=== PATIENT | female | born 1965 | race Caucasian/White ===

== ENCOUNTER 2017-08-30 13:58 | Inpatient (IN) | payer BC, OTHER ==
--- NOTE | 2017-08-30 14:41 | ED ---
General Adult HPI - General Chief complaint: Abdominal Pain Stated complaint: gallbladder Time Seen by Provider: 08/30/17 14:28 Source: patient, RN notes reviewed, old records reviewed Mode of arrival: ambulatory Limitations: no limitations - History of Present Illness Initial comments: 52-year-old female presents for evaluation of abdominal pain. Patient had been seen at outside hospital for right upper quadrant pain over the past one week. She did receive CAT scan and ultrasound. She was told she would likely need to have her gallbladder out. She was unable to wait for an outpatient referral and presented with worsening pain. She has had nausea, no significant vomiting. No fever but she has had chills. Pain is epigastric and right upper quadrant. Past medical history of hypertension, remote history of nephrectomy and total hysterectomy. - Related Data Home Medications Medication Instructions Recorded Confirmed Sucralfate 1 gm PO QID 03/24/14 08/30/17 lamoTRIgine [LaMICtal] 100 mg PO BID 09/09/14 08/30/17 Aspirin EC [Ecotrin Low Dose] 81 mg PO DAILY 08/30/17 08/30/17 Carvedilol [Coreg] 12.5 mg PO BID 08/30/17 08/30/17 Cephalexin [Keflex] 500 mg PO QID 08/30/17 08/30/17 Lisinopril [Zestril] 10 mg PO DAILY 08/30/17 08/30/17 Ondansetron [Zofran ODT] 8 mg PO QID PRN 08/30/17 08/30/17 Allergies Allergy/AdvReac Type Severity Reaction Status Date / Time sulfamethoxazole Allergy Severe Unknown Verified 08/30/17 14:30 [From Bactrim] rofecoxib [From Vioxx] Allergy Anaphylaxis Verified 08/30/17 14:30 trimethoprim [From Bactrim] Allergy Unknown Verified 08/30/17 14:30 NSAIDS (Non-Steroidal AdvReac Unknown Verified 08/30/17 14:30 Anti-Inflamma Review of Systems ROS Statement: Those systems with pertinent positive or pertinent negative responses have been documented in the HPI. ROS Other: All systems not noted in ROS Statement are negative. Past Medical History Past Medical History: Hyperlipidemia, Hypertension, Mitral Valve Prolapse (MVP) , Renal Disease, Seizure Disorder Additional Past Medical History / Comment(s): PAD History of Any Multi-Drug Resistant Organisms: None Reported Past Surgical History: Section, Hysterectomy, Tubal Ligation Additional Past Surgical History / Comment(s): kidney removed Past Anesthesia/Blood Transfusion Reactions: No Reported Reaction Past Psychological History: Anxiety, Depression Smoking Status: Current every day smoker Past Alcohol Use History: None Reported Past Drug Use History: None Reported General Exam Limitations: no limitations General appearance: alert, in no apparent distress Head exam: Present: atraumatic, normocephalic Eye exam: Present: normal appearance, PERRL ENT exam: Present: normal exam Neck exam: Present: normal inspection. Absent: tenderness, meningismus Respiratory exam: Present: normal lung sounds bilaterally. Absent: respiratory distress Cardiovascular Exam: Present: regular rate, normal rhythm GI/Abdominal exam: Present: soft, tenderness (Right upper quadrant tenderness). Absent: distended, guarding, rebound Extremities exam: Present: normal inspection, normal capillary refill. Absent: pedal edema Back exam: Present: normal inspection, full ROM Neurological exam: Present: alert, oriented X3 Psychiatric exam: Present: normal affect, normal mood Skin exam: Present: warm, dry, intact. Absent: cyanosis, diaphoretic Course Vital Signs 08/30/17 08/30/17 14:14 15:43 Temperature 97.5 F L Pulse Rate 71 78 Respiratory 18 18 Rate Blood Pressure 91/55 93/48 O2 Sat by Pulse 98 98 Oximetry Medical Decision Making - Medical Decision Making 52-year-old female presenting for abdominal pain. Report is reviewed from outside hospital, does show CT with mild dilatation of the CBD at 9 mm. There is thickening of the gallbladder wall with pericholecystic fluid consistent with acute cholecystitis. This is also visualized on ultrasound report. Laboratory studies reveal normal white blood cell count, normal bilirubin, she does have an elevated creatinine consistent with dehydration and acute renal failure. Case is discussed with Dr. Najera, he will evaluate the patient for likely cholecystectomy. Patient will be admitted to internal medicine, she may require a GI consultation given the dilated common bile duct. Diagnosis: Acute cholecystitis, dehydration, acute renal failure. - Lab Data Result diagrams: 08/30/17 14:58 08/30/17 14:58 Lab Results 08/30/17 08/30/17 08/30/17 Range/Units 14:50 14:58 14:58 WBC 7.8 (3.8-10.6) k/uL RBC 4.03 (3.80-5.40) m/uL Hgb 13.3 (11.4-16.0) gm/dL Hct 40.7 (34.0-46.0) % MCV 100.9 H (80.0-100.0) fL MCH 33.0 (25.0-35.0) pg MCHC 32.7 (31.0-37.0) g/dL RDW 14.2 (11.5-15.5) % Plt Count 296 (150-450) k/uL Neutrophils % 71 % Lymphocytes % 16 % Monocytes % 8 % Eosinophils % 2 % Basophils % 0 % Neutrophils # 5.5 (1.3-7.7) k/uL Lymphocytes # 1.2 (1.0-4.8) k/uL Monocytes # 0.7 (0-1.0) k/uL Eosinophils # 0.2 (0-0.7) k/uL Basophils # 0.0 (0-0.2) k/uL Macrocytosis Slight Sodium 138 (137-145) mmol/L Potassium 5.0 (3.5-5.1) mmol/L Chloride 104 (98-107) mmol/L Carbon Dioxide 19 L (22-30) mmol/L Anion Gap 15 mmol/L BUN 42 H (7-17) mg/dL Creatinine 2.88 H (0.52-1.04) mg/dL Est GFR (CKD-EPI)AfAm 21 (>60 ml/min/1.73 sqM) Est GFR (CKD-EPI)NonAf 18 (>60 ml/min/1.73 sqM) Glucose 54 L (74-99) mg/dL Calcium 9.5 (8.4-10.2) mg/dL Total Bilirubin 0.4 (0.2-1.3) mg/dL AST 81 H (14-36) U/L ALT 47 (9-52) U/L Alkaline Phosphatase 125 (38-126) U/L Total Protein 7.3 (6.3-8.2) g/dL Albumin 4.3 (3.5-5.0) g/dL Amylase 176 H (30-110) U/L Lipase 296 (23-300) U/L Urine Color Yellow Urine Appearance Cloudy H (Clear) Urine pH 5.5 (5.0-8.0) Ur Specific [place] 1.017 (1.001-1.035) Urine Protein 1+ H (Negative) Urine Glucose (UA) Negative (Negative) Urine Ketones Trace H (Negative) Urine Blood Trace H (Negative) Urine Nitrite Negative (Negative) Urine Bilirubin Negative (Negative) Urine Urobilinogen 3.0 (<2.0) mg/dL Ur Leukocyte Esterase Moderate H (Negative) Urine RBC 2 (0-5) /hpf Urine WBC 5 (0-5) /hpf Ur Squamous Epith Cells 3 (0-4) /hpf Urine Bacteria Few H (None) /hpf Hyaline Casts 12 H (0-2) /lpf Urine Mucus Occasional H (None) /hpf Disposition Clinical Impression: Acute cholecystitis, Dehydration, Acute renal failure Disposition: ADMITTED IP TO THIS HOSP Condition: Stable Is patient prescribed a controlled substance at d/c from ED?: No Referrals: Ike Fitzpatrick MD [Primary Care Provider] - 1-2 days Decision to Admit Reason: Admit from EC Decision Date: 08/30/17 Decision Time: 15:53
[2017-08-30 15:24] LABS: Appearance,Urine Cloudy (Clear); Bacteria,Urine Few /hpf; Bilirubin,Urine Negative (Negative); Blood,Urine Trace (Negative); Color,Urine Yellow; Glucose,Urine (UA) Negative (Negative); Hyaline Casts,Urine 12 /lpf (0-2); Ketones,Urine Trace (Negative); Leukocyte Esterase,Urine Moderate (Negative); Mucus,Urine Occasional /hpf; Nitrite,Urine Negative (Negative); PH, Urine 5.5 (5.0-8.0); Protein,Urine 1+ (Negative); RBC,Urine 2 /hpf (0-5); Specific Gravity,Urine 1.017 (1.001-1.035); Squamous Epithelial Cell,Urine 3 /hpf (0-4); WBC,Urine 5 /hpf (0-5)
[2017-08-30] MEDS ORDERED: SODIUM CHLORIDE 0.9% 500 ML IV ONE (15:25)
[2017-08-30 15:31] LABS: Basophils % (A) 0 %; Eosinophils # (A) 0.2 k/uL (0-0.7); Eosinophils % (A) 2 %; HCT 40.7 % (34.0-46.0); HGB 13.3 gm/dL (11.4-16.0); Lymphocytes # (A) 1.2 k/uL (1.0-4.8); Lymphocytes % (A) 16 %; MCHC 32.7 g/dL (31.0-37.0); MCV 100.9 fL (80.0-100.0); Macrocytosis Slight; Mean Platelet Volume 7.2; Monocytes # (A) 0.7 k/uL (0-1.0); Monocytes % (A) 8 %; Neutrophils # (A) 5.5 k/uL (1.3-7.7); Neutrophils % (A) 71 %; Platelet Count 296 k/uL (150-450); RBC 4.03 m/uL (3.80-5.40); RDW 14.2 % (11.5-15.5); WBC 7.8 k/uL (3.8-10.6)
[2017-08-30 15:32] LABS: Albumin 4.3 g/dL (3.5-5.0); Calcium 9.5 mg/dL (8.4-10.2); Total Bilirubin 0.4 mg/dL (0.2-1.3); Total Protein 7.3 g/dL (6.3-8.2)
[2017-08-30] MEDS ORDERED: SODIUM CHLORIDE 0.9% 1,000 ML IV ONE (15:41)
[2017-08-30] MEDS ORDERED: DEXTROSE 5%-0.45% NACL 1,000 ML IV ONE (15:42)
[2017-08-30] MEDS ORDERED: SODIUM CHLORIDE 0.9% 1,000 ML IV SCH (15:45)
[2017-08-30] MEDS ORDERED: NALOXONE 0.4 MG/ML 1 ML VIAL IV PRN (15:48)
[2017-08-30] MEDS ORDERED: HYDROmorphone 0.5 MG/0.5 ML SYRINGE IVP STA (15:48)
[2017-08-30 16:40] LABS: INR 1.1 (<1.2); Prothrombin Time 10.4 sec (9.0-12.0)
[2017-08-30 16:44] LABS: Partial Thromboplastin Time 21.7 sec (22.0-30.0)
[2017-08-30] MEDS: PIPERACILLIN-TAZOBACTAM 3.375 GM in DEXTROSE/WATER 1 50ML.BAG IVPB SCH (19:48)
[2017-08-30] MEDS: HYDROmorphone 0.5 MG/0.5 ML SYRINGE IVP PRN (20:11)
[2017-08-30] MEDS: NICOTINE 14MG/24HR PATCH TRANSDERM SCH (20:46)
[2017-08-30] MEDS: lamoTRIgine 100 MG TAB PO SCH (20:46)
[2017-08-30] MEDS: SUCRALFATE 1 GM TAB PO SCH (21:54)
[2017-08-30] MEDS: SODIUM CHLORIDE 0.9% 1,000 ML IV SCH (21:55)
--- NOTE | 2017-08-30 21:57 | P.HPIM ---
History of Present Illness H&P Date: 08/30/17 Chief Complaint: Abdominal pain Patient is a 52-year-old female with a known history of hypertension, hyperlipidemia and mitral valve prolapse as well as solitary right kidney presented to ER with complaints of worsening right upper quadrant abdominal pain. Patient was seen at outside hospital about one week ago with right upper quadrant pain where she had CT of abdomen pelvis as well as WAS DONE. PATIENT WAS FOUND HAVE ACUTE CHOLECYSTITIS AND WAS REFERRED TO GENERAL SURGERY. PATIENT WAS STARTED ON ANTIBIOTICS UNTIL FOLLOW-UP WITH SURGERY CLINIC. PATIENT TODAY SAYS THAT HER PAIN GOT WORSE SIGNIFICANTLY AND CAME TO THE HOSPITAL FOR EVALUATION. She has had nausea, no significant vomiting. No fever but she has had chills. Pain is epigastric and right upper quadrant. Past medical history of hypertension, remote history of nephrectomy and total hysterectomy. Patient does have history of left kidney removal due to large stone. Patient will be started on IV antibiotics and general surgery was consulted for possible cholecystectomy. Review of Systems Constitutional: Patient denies any fever or chills . No generalized weakness or weight loss. Abdomen: Right upper quadrant pain. No nausea no vomiting. No diarrhea. Cardiovascular: Patient denies any chest pain or short of breath no palpitations. Respiratory: patient denied any cough is from production. No shortness of breath Neurologic: Patient denied any numbness or tingling headache. Musculoskeletal: Patient denies any complaints of joint swelling or deformity. Skin: Negative Psychiatric: Negative Endocrine: No heat or cold intolerance. No recent weight gain. Genitourinary: No dysuria or hematuria. All other 14 point ROS negative except the above Past Medical History Past Medical History: Hyperlipidemia, Hypertension, Mitral Valve Prolapse (MVP) , Renal Disease, Seizure Disorder Additional Past Medical History / Comment(s): PAD ( 2 blocked arteries in the base of her brain-neurologist reports that they are very small and she will likely have a CVA due to them) , Last seizure was over 3 years ago History of Any Multi-Drug Resistant Organisms: None Reported Past Surgical History: Section, Hysterectomy, Tubal Ligation Additional Past Surgical History / Comment(s): L. kidney removed Past Anesthesia/Blood Transfusion Reactions: No Reported Reaction Past Psychological History: Anxiety, Depression Smoking Status: Current every day smoker Past Alcohol Use History: None Reported Past Drug Use History: None Reported - Past Family History Father Family Medical History: Unable to Obtain Additional Family Medical History / Comment(s): Pt. Was adopted Medications and Allergies Home Medications Medication Instructions Recorded Confirmed Type Sucralfate 1 gm PO QID 03/24/14 08/30/17 History lamoTRIgine [LaMICtal] 100 mg PO BID 09/09/14 08/30/17 History Aspirin EC [Ecotrin Low Dose] 81 mg PO DAILY 08/30/17 08/30/17 History Carvedilol [Coreg] 12.5 mg PO BID 08/30/17 08/30/17 History Cephalexin [Keflex] 500 mg PO QID 08/30/17 08/30/17 History Lisinopril [Zestril] 10 mg PO DAILY 08/30/17 08/30/17 History Ondansetron [Zofran ODT] 8 mg PO QID PRN 08/30/17 08/30/17 History Allergies Allergy/AdvReac Type Severity Reaction Status Date / Time sulfamethoxazole Allergy Severe Unknown Verified 08/30/17 14:30 [From Bactrim] rofecoxib [From Vioxx] Allergy Anaphylaxis Verified 08/30/17 14:30 trimethoprim [From Bactrim] Allergy Unknown Verified 08/30/17 14:30 NSAIDS (Non-Steroidal AdvReac Unknown Verified 08/30/17 14:30 Anti-Inflamma Physical Exam Vitals: Vital Signs Temp Pulse Pulse Resp BP BP Pulse Ox 08/30/17 19:10 98.7 F 57 L 18 90/56 97 08/30/17 18:07 98.7 F 75 16 113/74 97 08/30/17 16:26 97.6 F 69 18 96/54 98 08/30/17 15:43 78 18 93/48 98 08/30/17 14:14 97.5 F L 71 18 91/55 98 Intake and Output 08/30/17 08/30/17 08/30/17 06:59 14:59 22:59 Other: Weight 68.039 kg PHYSICAL EXAMINATION: Patient is lying in the bed comfortably, no acute distress, awake alert and oriented.. HEENT: Normocephalic. Neck is supple. Pupils reactive. Nostrils clear. Oral cavity is moist. Ears reveal no drainage. Neck reveals no JVD, carotid bruits, or thyromegaly. CHEST EXAMINATION: Trachea is central. Symmetrical expansion. Lung cuevas clear to auscultation and percussion. CARDIAC: Normal S1, S2 with no gallops. No murmurs ABDOMEN: Soft. Right upper quadrant tenderness with deep sedation and Chase's sign positive. Bowel sounds normal. No organomegaly. No abdominal bruits. Extremities: reveal no edema. No clubbing or cyanosis Neurologically awake, alert, oriented x3 with well-coordinated movements. No focal deficits noted Skin: No rash or skin lesions. Psychiatric: Cooperative. Nonsuicidal Musculoskeletal: No joint swelling or deformity. Normal range of motion. Results CBC & Chem 7: 08/30/17 14:58 08/30/17 14:58 Labs: Abnormal Lab Results - Last 24 Hours (Table) 08/30/17 08/30/17 08/30/17 Range/Units 14:50 14:58 14:58 MCV 100.9 H (80.0-100.0) fL APTT (22.0-30.0) sec Carbon Dioxide 19 L (22-30) mmol/L BUN 42 H (7-17) mg/dL Creatinine 2.88 H (0.52-1.04) mg/dL Glucose 54 L (74-99) mg/dL AST 81 H (14-36) U/L Amylase 176 H (30-110) U/L Urine Appearance Cloudy H (Clear) Urine Protein 1+ H (Negative) Urine Ketones Trace H (Negative) Urine Blood Trace H (Negative) Ur Leukocyte Esterase Moderate H (Negative) Urine Bacteria Few H (None) /hpf Hyaline Casts 12 H (0-2) /lpf Urine Mucus Occasional H (None) /hpf 08/30/17 Range/Units 16:00 MCV (80.0-100.0) fL APTT 21.7 L (22.0-30.0) sec Carbon Dioxide (22-30) mmol/L BUN (7-17) mg/dL Creatinine (0.52-1.04) mg/dL Glucose (74-99) mg/dL AST (14-36) U/L Amylase (30-110) U/L Urine Appearance (Clear) Urine Protein (Negative) Urine Ketones (Negative) Urine Blood (Negative) Ur Leukocyte Esterase (Negative) Urine Bacteria (None) /hpf Hyaline Casts (0-2) /lpf Urine Mucus (None) /hpf Thrombosis Risk Factor Assmnt - DVT/VTE Prophylaxis DVT/VTE Prophylaxis: Pharmacologic Prophylaxis ordered - Choose All That Apply Any of the Below Risk Factors Present?: Yes Each Factor Represents 1 point: Age 41-60 years Thrombosis Risk Factor Assessment Total Risk Factor Score: 1 Thrombosis Risk Factor Assessment Level: Low Risk Assessment and Plan Assessment: Right upper quadrant pain likely due to acute cholecystitis Acute on chronic kidney disease stage III with creatinine level 2.88 Mild metabolic acidosis anion gap Solitary right kidney with history of left kidney removal due to large stone Hypertension Hyperlipidemia Mitral valve prolapse History of seizure disorder Anxiety and depression Currently everyday smoker D prophylaxis Plan: Patient continued on IV hydration and antibiotics in the form of Zosyn. Gen. surgery was consulted for further evaluation. We will continue the home medications and follow closely. Discussed with her at bedside and with the patient in detail. Time with Patient: Greater than 30
[2017-08-31] MEDS: HYDROmorphone 0.5 MG/0.5 ML SYRINGE IVP PRN ×9 (00:06→22:10)
[2017-08-31] MEDS: PIPERACILLIN-TAZOBACTAM 3.375 GM in DEXTROSE/WATER 1 50ML.BAG IVPB SCH ×3 (02:26→17:00)
[2017-08-31] MEDS: SODIUM CHLORIDE 0.9% 1,000 ML IV SCH (03:18)
[2017-08-31 08:20] LABS: Basophils % (A) 0 %; Eosinophils # (A) 0.2 k/uL (0-0.7); Eosinophils % (A) 3 %; HGB 12.8 gm/dL (11.4-16.0); Lymphocytes # (A) 1.6 k/uL (1.0-4.8); Lymphocytes % (A) 26 %; MCH 32.9 pg (25.0-35.0); MCHC 32.8 g/dL (31.0-37.0); MCV 100.3 fL (80.0-100.0); Macrocytosis Slight; Mean Platelet Volume 8.1; Monocytes # (A) 0.7 k/uL (0-1.0); Monocytes % (A) 10 %; Neutrophils # (A) 3.5 k/uL (1.3-7.7); Neutrophils % (A) 56 %; Platelet Count 251 k/uL (150-450); RBC 3.89 m/uL (3.80-5.40); RDW 14.2 % (11.5-15.5); WBC 6.3 k/uL (3.8-10.6)
[2017-08-31] MEDS: SUCRALFATE 1 GM TAB PO SCH ×4 (08:28→22:10)
[2017-08-31] MEDS: NICOTINE 14MG/24HR PATCH TRANSDERM SCH (08:28)
[2017-08-31] MEDS: lamoTRIgine 100 MG TAB PO SCH ×2 (08:28→20:18)
[2017-08-31] MEDS: ONDANSETRON 4 MG/2 ML VIAL IVP PRN (08:29)
[2017-08-31 10:04] LABS: Albumin 3.4 g/dL (3.5-5.0); Bilirubin, Delta 0.4 mg/dL (0.0-0.2); Calcium 8.9 mg/dL (8.4-10.2); Potassium 4.9 mmol/L (3.5-5.1); Total Bilirubin 0.4 mg/dL (0.2-1.3); Total Protein 5.9 g/dL (6.3-8.2)
[2017-08-31] MEDS: DEXTROSE 5%-0.9% NACL 1,000 ML IV SCH ×2 (10:51→20:48)
--- NOTE | 2017-08-31 12:52 | P.GSCN ---
History of Present Illness Consult date: 08/31/17 History of present illness: 52-year-old female presents to the emergency department with complaints of right upper quadrant pain. [place] is from [place] of town and had workup done at an outside facility due to her right upper quadrant pain. She was found to have acute cholecystitis and was informed to follow with a surgeon. She was unable to tolerate the pain and was transferred to this hospital. She currently has some right upper quadrant pain. Complains of some nausea but denies any emesis episodes. She denies any change in bowel function. She states her only surgical history is a left-sided nephrectomy secondary to severe nephrolithiasis. She is in acute renal failure on admission. She denies any fevers, chills, chest pain or shortness of breath at this time. Review of Systems All systems: negative Past Medical History Past Medical History: Hyperlipidemia, Hypertension, Mitral Valve Prolapse (MVP) , Renal Disease, Seizure Disorder Additional Past Medical History / Comment(s): PAD ( 2 blocked arteries in the base of her brain-neurologist reports that they are very small and she will likely have a CVA due to them) , Last seizure was over 3 years ago History of Any Multi-Drug Resistant Organisms: None Reported Past Surgical History: Section, Hysterectomy, Tubal Ligation Additional Past Surgical History / Comment(s): L. kidney removed Past Anesthesia/Blood Transfusion Reactions: No Reported Reaction Past Psychological History: Anxiety, Depression Smoking Status: Current every day smoker Past Alcohol Use History: None Reported Past Drug Use History: None Reported - Past Family History Father Family Medical History: Unable to Obtain Additional Family Medical History / Comment(s): Pt. Was adopted Medications and Allergies Home Medications Medication Instructions Recorded Confirmed Type Sucralfate 1 gm PO QID 03/24/14 08/30/17 History lamoTRIgine [LaMICtal] 100 mg PO BID 09/09/14 08/30/17 History Aspirin EC [Ecotrin Low Dose] 81 mg PO DAILY 08/30/17 08/30/17 History Carvedilol [Coreg] 12.5 mg PO BID 08/30/17 08/30/17 History Cephalexin [Keflex] 500 mg PO QID 08/30/17 08/30/17 History Lisinopril [Zestril] 10 mg PO DAILY 06/21/18 06/21/18 History Ondansetron [Zofran ODT] 8 mg PO QID PRN 08/30/17 08/30/17 History Allergies Allergy/AdvReac Type Severity Reaction Status Date / Time sulfamethoxazole Allergy Severe Unknown Verified 08/30/17 14:30 [From Bactrim] rofecoxib [From Vioxx] Allergy Anaphylaxis Verified 08/30/17 14:30 trimethoprim [From Bactrim] Allergy Unknown Verified 08/30/17 14:30 NSAIDS (Non-Steroidal AdvReac Unknown Verified 08/30/17 14:30 Anti-Inflamma Surgical - Exam Osteopathic Statement: *. No significant issues noted on an osteopathic structural exam other than those noted in the History and Physical/Consult. Vital Signs Temp Pulse Resp BP Pulse Ox 97.5 F L 71 18 91/55 98 08/30/17 14:14 08/30/17 14:14 08/30/17 14:14 08/30/17 14:14 08/30/17 14:14 - General well nourished, no distress - Neck trachea midline - Respiratory No difficulty with respiration - Integumentary no rash, no growths - Neurologic normal sensation - Psychiatric oriented to time, oriented to person, oriented to place, speech is normal Results - Labs 08/31/17 07:31 08/31/17 09:36 Abnormal Lab Results - Last 24 Hours (Table) 08/30/17 08/30/17 08/30/17 Range/Units 14:50 14:58 14:58 MCV 100.9 H (80.0-100.0) fL APTT (22.0-30.0) sec Chloride (98-107) mmol/L Carbon Dioxide 19 L (22-30) mmol/L BUN 42 H (7-17) mg/dL Creatinine 2.88 H (0.52-1.04) mg/dL Glucose 54 L (74-99) mg/dL Delta Bilirubin (0.0-0.2) mg/dL AST 81 H (14-36) U/L Alkaline Phosphatase (38-126) U/L Total Protein (6.3-8.2) g/dL Albumin (3.5-5.0) g/dL Amylase 176 H (30-110) U/L Urine Appearance Cloudy H (Clear) Urine Protein 1+ H (Negative) Urine Ketones Trace H (Negative) Urine Blood Trace H (Negative) Ur Leukocyte Esterase Moderate H (Negative) Urine Bacteria Few H (None) /hpf Hyaline Casts 12 H (0-2) /lpf Urine Mucus Occasional H (None) /hpf 08/30/17 08/31/17 08/31/17 Range/Units 16:00 07:31 09:36 MCV 100.3 H (80.0-100.0) fL APTT 21.7 L (22.0-30.0) sec Chloride 113 H (98-107) mmol/L Carbon Dioxide 19 L (22-30) mmol/L BUN 24 H (7-17) mg/dL Creatinine 1.30 H (0.52-1.04) mg/dL Glucose 52 L (74-99) mg/dL Delta Bilirubin 0.4 H (0.0-0.2) mg/dL AST 83 H (14-36) U/L Alkaline Phosphatase 132 H (38-126) U/L Total Protein 5.9 L (6.3-8.2) g/dL Albumin 3.4 L (3.5-5.0) g/dL Amylase (30-110) U/L Urine Appearance (Clear) Urine Protein (Negative) Urine Ketones (Negative) Urine Blood (Negative) Ur Leukocyte Esterase (Negative) Urine Bacteria (None) /hpf Hyaline Casts (0-2) /lpf Urine Mucus (None) /hpf Diabetes panel 08/30/17 08/31/17 Range/Units 14:58 09:36 Sodium 138 141 (137-145) mmol/L Potassium 5.0 4.9 (3.5-5.1) mmol/L Chloride 104 113 H (98-107) mmol/L Carbon Dioxide 19 L 19 L (22-30) mmol/L BUN 42 H 24 H (7-17) mg/dL Creatinine 2.88 H 1.30 H (0.52-1.04) mg/dL Glucose 54 L 52 L (74-99) mg/dL Calcium 9.5 8.9 (8.4-10.2) mg/dL AST 81 H 83 H (14-36) U/L ALT 47 49 (9-52) U/L Alkaline Phosphatase 125 132 H (38-126) U/L Total Protein 7.3 5.9 L (6.3-8.2) g/dL Albumin 4.3 3.4 L (3.5-5.0) g/dL Calcium panel 08/30/17 08/31/17 Range/Units 14:58 09:36 Calcium 9.5 8.9 (8.4-10.2) mg/dL Albumin 4.3 3.4 L (3.5-5.0) g/dL Pituitary panel 08/30/17 08/31/17 Range/Units 14:58 09:36 Sodium 138 141 (137-145) mmol/L Potassium 5.0 4.9 (3.5-5.1) mmol/L Chloride 104 113 H (98-107) mmol/L Carbon Dioxide 19 L 19 L (22-30) mmol/L BUN 42 H 24 H (7-17) mg/dL Creatinine 2.88 H 1.30 H (0.52-1.04) mg/dL Glucose 54 L 52 L (74-99) mg/dL Calcium 9.5 8.9 (8.4-10.2) mg/dL Adrenal panel 08/30/17 08/31/17 Range/Units 14:58 09:36 Sodium 138 141 (137-145) mmol/L Potassium 5.0 4.9 (3.5-5.1) mmol/L Chloride 104 113 H (98-107) mmol/L Carbon Dioxide 19 L 19 L (22-30) mmol/L BUN 42 H 24 H (7-17) mg/dL Creatinine 2.88 H 1.30 H (0.52-1.04) mg/dL Glucose 54 L 52 L (74-99) mg/dL Calcium 9.5 8.9 (8.4-10.2) mg/dL Total Bilirubin 0.4 0.4 (0.2-1.3) mg/dL AST 81 H 83 H (14-36) U/L ALT 47 49 (9-52) U/L Alkaline Phosphatase 125 132 H (38-126) U/L Total Protein 7.3 5.9 L (6.3-8.2) g/dL Albumin 4.3 3.4 L (3.5-5.0) g/dL Assessment and Plan (1) Acute cholecystitis Narrative/Plan: 52-year-old female with acute cholecystitis - Patient is also in acute renal failure, due to having history of nephrectomy, will address acute renal failure with gentle hydration. Once creatinine levels have responded and patient has resolving renal failure, we'll plan for cholecystectomy. This will likely be performed tomorrow. She seems to already be progressing with her acute renal failure with the hydration she has received. - Clear liquid diet today, nothing by mouth after midnight - Continue antibiotics Thank you for this consultation. I look forward in providing in this patient's care. Current Visit: Yes Status: Acute Code(s): K81.0 - ACUTE CHOLECYSTITIS SNOMED Code(s): 30609490 (2) Acute renal failure Current Visit: Yes Status: Acute Code(s): N17.9 - ACUTE KIDNEY FAILURE, UNSPECIFIED SNOMED Code(s): 98330226
[2017-08-31] MEDS: HYDROcodone/APAP 5-325MG 1 EACH TAB PO PRN (16:58)
--- NOTE | 2017-08-31 21:36 | P.PN ---
Subjective Progress Note Date: 08/31/17 Principal diagnosis: Acute cholecystitis Patient is a 52-year-old female with a known history of hypertension, hyperlipidemia and mitral valve prolapse as well as solitary right kidney presented to ER with complaints of worsening right upper quadrant abdominal pain. Patient was seen at outside hospital about one week ago with right upper quadrant pain where she had CT of abdomen pelvis as well as WAS DONE. PATIENT WAS FOUND HAVE ACUTE CHOLECYSTITIS AND WAS REFERRED TO GENERAL SURGERY. PATIENT WAS STARTED ON ANTIBIOTICS UNTIL FOLLOW-UP WITH SURGERY CLINIC. PATIENT TODAY SAYS THAT HER PAIN GOT WORSE SIGNIFICANTLY AND CAME TO THE HOSPITAL FOR EVALUATION. She has had nausea, no significant vomiting. No fever but she has had chills. Pain is epigastric and right upper quadrant. Past medical history of hypertension, remote history of nephrectomy and total hysterectomy. Patient does have history of left kidney removal due to large stone. Patient wass started on IV antibiotics and general surgery was consulted for possible cholecystectomy. 08/31/2017 Patient does have right upper quadrant abdominal pain radiating to the back. Otherwise patient is controlled with pain medications. They'll function improved with creatinine level decreased from 2.88-1.3. Patient was seen by general surgery and is planning for cholecystectomy possibly thereafter tomorrow. No fever no chills. No chest pain or shortness of breath. Tolerating liquid diet. All other review of systems negative except the above Active Medications Hydrocodone Bitart/Acetaminophen ([place] 5-325) 1 each PO Q6HR PRN PRN Reason: MODERATE Pain Last Admin: 08/31/17 16:58 Dose: 1 each Hydromorphone HCl (Dilaudid) 0.5 mg IVP Q3HR PRN PRN Reason: SEVERE Pain Last Admin: 08/31/17 19:11 Dose: 0.5 mg Piperacillin/Tazobactam/ (Dextrose 3.375 gm/ IV Solution) 50 mls @ 12.5 mls/hr IVPB Q8H [facility] Last Admin: 08/31/17 17:00 Dose: 12.5 mls/hr Dextrose/Sodium Chloride (Dextrose 5%-Ns Iv Soln) 1,000 mls @ 100 mls/hr IV .Q10H [facility] Last Admin: 08/31/17 20:48 Dose: 100 mls/hr Lamotrigine (Lamictal) 100 mg PO BID [facility] Last Admin: 08/31/17 20:18 Dose: 100 mg Naloxone HCl (Narcan) 0.2 mg IV Q2M PRN PRN Reason: Opioid Reversal Nicotine (Habitrol 14mg/24hr Patch) 1 patch TRANSDERM DAILY [facility] Last Admin: 08/31/17 08:28 Dose: 1 patch Ondansetron HCl (Zofran) 4 mg IVP Q8HR PRN PRN Reason: Nausea And Vomiting Last Admin: 08/31/17 08:29 Dose: 4 mg Sucralfate (Carafate) 1 gm PO QID [facility] Last Admin: 08/31/17 17:00 Dose: 1 gm Objective - Vital Signs Vital signs: Vital Signs Temp 98 F 08/31/17 19:46 Pulse 76 08/31/17 19:46 Resp 16 08/31/17 19:46 BP 100/68 08/31/17 19:46 Pulse Ox 96 08/31/17 19:46 Intake & Output 08/31/17 08/31/17 09/01/17 06:59 18:59 06:59 Intake Total 1250 800 600 Balance 1250 800 600 Intake: Intake, IV Titration 1250 800 Amount Dextrose 5%-0.9% NaCl 1, 800 000 ml @ 100 mls/hr IV . Q10H [facility] Rx#:[id number] Sodium Chloride 0.9% 1, 1250 000 ml @ 125 mls/hr IV . Q8H [facility] Rx#:[id number] Oral 600 Other: # Voids 3 3 - Exam PHYSICAL EXAMINATION: Patient is lying in the bed comfortably, no acute distress, awake alert and oriented.. HEENT: Normocephalic. Neck is supple. Pupils reactive. Nostrils clear. Oral cavity is moist. Ears reveal no drainage. Neck reveals no JVD, carotid bruits, or thyromegaly. CHEST EXAMINATION: Trachea is central. Symmetrical expansion. Lung cuevas clear to auscultation and percussion. CARDIAC: Normal S1, S2 with no gallops. No murmurs ABDOMEN: Soft. Mild Right upper quadrant tenderness. Bowel sounds normal. No organomegaly. No abdominal bruits. Extremities: reveal no edema. No clubbing or cyanosis Neurologically awake, alert, oriented x3 with well-coordinated movements. No focal deficits noted Skin: No rash or skin lesions. Psychiatric: Coperative. Nonsuicidal Musculoskeletal: No joint swelling or deformity. Normal range of motion. - Labs CBC & Chem 7: 08/31/17 07:31 08/31/17 09:36 Labs: Abnormal Lab Results - Last 24 Hours (Table) 08/31/17 08/31/17 Range/Units 07:31 09:36 MCV 100.3 H (80.0-100.0) fL Chloride 113 H (98-107) mmol/L Carbon Dioxide 19 L (22-30) mmol/L BUN 24 H (7-17) mg/dL Creatinine 1.30 H (0.52-1.04) mg/dL Glucose 52 L (74-99) mg/dL Delta Bilirubin 0.4 H (0.0-0.2) mg/dL AST 83 H (14-36) U/L Alkaline Phosphatase 132 H (38-126) U/L Total Protein 5.9 L (6.3-8.2) g/dL Albumin 3.4 L (3.5-5.0) g/dL Microbiology - Last 24 Hours (Table) 08/30/17 14:58 Blood Culture - Preliminary Blood No Growth after 24 hours Assessment and Plan Assessment: Right upper quadrant pain likely due to acute cholecystitis Acute on chronic kidney disease stage III with creatinine level 2.88. Improving. Creatinine 1.3 Mild metabolic acidosis anion gap Solitary right kidney with history of left kidney removal due to large stone Hypertension Hyperlipidemia Mitral valve prolapse History of seizure disorder Anxiety and depression Currently everyday smoker D prophylaxis Plan: Patient continued on IV hydration and antibiotics in the form of Zosyn. Gen. surgery is planning for cholecystectomy.. We will continue the home medications and follow closely. Further recommendations based on the clinical course. Time with Patient: Greater than 30
[2017-09-01] MEDS: HYDROcodone/APAP 5-325MG 1 EACH TAB PO PRN ×4 (00:32→17:39)
[2017-09-01] MEDS: PIPERACILLIN-TAZOBACTAM 3.375 GM in DEXTROSE/WATER 1 50ML.BAG IVPB SCH ×3 (01:45→22:52)
[2017-09-01] MEDS: HYDROmorphone 0.5 MG/0.5 ML SYRINGE IVP PRN ×6 (03:25→22:10)
--- NOTE | 2017-09-01 08:28 | P.PN ---
Subjective Progress Note Date: 09/01/17 Patient seen and examined at bedside. States right upper quadrant pain is still present. Tolerating clear liquid diet. Denies nausea or emesis. Objective - Vital Signs Vital signs: Vital Signs Temp 98.1 F 09/01/17 00:30 Pulse 62 09/01/17 00:30 Resp 16 09/01/17 00:30 BP 102/61 09/01/17 00:30 Pulse Ox 98 09/01/17 00:30 Intake & Output 08/31/17 09/01/17 09/01/17 18:59 06:59 18:59 Intake Total 800 4525 Balance 800 4525 Intake: Intake, IV Titration 800 3925 Amount Dextrose 5%-0.9% NaCl 1, 800 1700 000 ml @ 100 mls/hr IV . Q10H [facility] Rx#:[id number] Piperacillin-Tazobactam 3 100 .375 gm In Dextrose/Water 1 50ml.bag @ 12.5 mls/hr IVPB Q8H [facility] Rx#: [id number] Sodium Chloride 0.9% 1, 2125 000 ml @ 125 mls/hr IV . Q8H [facility] Rx#:[id number] Oral 600 Other: Voiding Method Toilet # Voids 3 3 - Constitutional General appearance: Present: cooperative, no acute distress - Respiratory Details: No difficulty with respiration - Gastrointestinal Gastrointestinal Comment(s): Soft, mild tenderness in the right upper quadrant, nondistended, no rebound, no guarding - Psychiatric Psychiatric: Present: A&O x's 3, appropriate affect - Labs CBC & Chem 7: 08/31/17 07:31 08/31/17 09:36 Labs: Abnormal Lab Results - Last 24 Hours (Table) 08/31/17 08/31/17 Range/Units 07:31 09:36 MCV 100.3 H (80.0-100.0) fL Chloride 113 H (98-107) mmol/L Carbon Dioxide 19 L (22-30) mmol/L BUN 24 H (7-17) mg/dL Creatinine 1.30 H (0.52-1.04) mg/dL Glucose 52 L (74-99) mg/dL Delta Bilirubin 0.4 H (0.0-0.2) mg/dL AST 83 H (14-36) U/L Alkaline Phosphatase 132 H (38-126) U/L Total Protein 5.9 L (6.3-8.2) g/dL Albumin 3.4 L (3.5-5.0) g/dL Microbiology - Last 24 Hours (Table) 08/30/17 14:58 Blood Culture - Preliminary Blood No Growth after 24 hours Assessment and Plan (1) Acute cholecystitis Narrative/Plan: 52-year-old female with acute cholecystitis - Awaiting a.m. labs, following creatinine - Attempted to schedule laparoscopic cholecystectomy for today. I was informed that there is maintenance being performed on the steam her for the sterilization for the operating room. Secondary to this, only trauma and emergent cases are to be performed today. The patient is scheduled for cholecystectomy tomorrow due to this issue. - Clear liquid diet today, nothing by mouth after midnight - Continue antibiotics Current Visit: Yes Status: Acute Code(s): K81.0 - ACUTE CHOLECYSTITIS SNOMED Code(s): 59795769 (2) Acute renal failure Current Visit: Yes Status: Acute Code(s): N17.9 - ACUTE KIDNEY FAILURE, UNSPECIFIED SNOMED Code(s): 46620281
[2017-09-01] MEDS: lamoTRIgine 100 MG TAB PO SCH ×2 (09:35→21:32)
[2017-09-01] MEDS: SUCRALFATE 1 GM TAB PO SCH ×4 (09:35→22:10)
[2017-09-01] MEDS: NICOTINE 14MG/24HR PATCH TRANSDERM SCH (09:38)
[2017-09-01 10:10] LABS: Basophils % (A) 0 %; Eosinophils # (A) 0.1 k/uL (0-0.7); Eosinophils % (A) 3 %; HCT 36.6 % (34.0-46.0); HGB 11.7 gm/dL (11.4-16.0); Hypochromasia Slight; Lymphocytes # (A) 1.3 k/uL (1.0-4.8); Lymphocytes % (A) 37 %; MCH 32.5 pg (25.0-35.0); MCHC 31.9 g/dL (31.0-37.0); MCV 101.7 fL (80.0-100.0); Macrocytosis Slight; Mean Platelet Volume 8.3; Monocytes # (A) 0.3 k/uL (0-1.0); Monocytes % (A) 8 %; Neutrophils # (A) 1.8 k/uL (1.3-7.7); Neutrophils % (A) 50 %; RDW 13.8 % (11.5-15.5); WBC 3.6 k/uL (3.8-10.6)
[2017-09-01 10:13] LABS: Platelet Count 103 k/uL (150-450)
[2017-09-01 10:21] LABS: Albumin 3.1 g/dL (3.5-5.0); Bilirubin, Delta 0.2 mg/dL (0.0-0.2); Bilirubin,Unconjugated 0.1 mg/dL (0.0-1.1); Calcium 8.6 mg/dL (8.4-10.2); Potassium 4.2 mmol/L (3.5-5.1); Total Bilirubin 0.3 mg/dL (0.2-1.3); Total Protein 5.4 g/dL (6.3-8.2)
[2017-09-01] MEDS: DEXTROSE 5%-0.9% NACL 1,000 ML IV SCH ×2 (16:00→18:16)
[2017-09-01] MEDS: ONDANSETRON 4 MG/2 ML VIAL IVP PRN (16:04)
--- NOTE | 2017-09-02 00:44 | P.PN ---
Subjective Progress Note Date: 09/01/17 Principal diagnosis: Acute cholecystitis Patient is a 52-year-old female with a known history of hypertension, hyperlipidemia and mitral valve prolapse as well as solitary right kidney presented to ER with complaints of worsening right upper quadrant abdominal pain. Patient was seen at outside hospital about one week ago with right upper quadrant pain where she had CT of abdomen pelvis as well as WAS DONE. PATIENT WAS FOUND HAVE ACUTE CHOLECYSTITIS AND WAS REFERRED TO GENERAL SURGERY. PATIENT WAS STARTED ON ANTIBIOTICS UNTIL FOLLOW-UP WITH SURGERY CLINIC. PATIENT TODAY SAYS THAT HER PAIN GOT WORSE SIGNIFICANTLY AND CAME TO THE HOSPITAL FOR EVALUATION. She has had nausea, no significant vomiting. No fever but she has had chills. Pain is epigastric and right upper quadrant. Past medical history of hypertension, remote history of nephrectomy and total hysterectomy. Patient does have history of left kidney removal due to large stone. Patient wass started on IV antibiotics and general surgery was consulted for possible cholecystectomy. 08/31/2017 Patient does have right upper quadrant abdominal pain radiating to the back. Otherwise patient is controlled with pain medications. They'll function improved with creatinine level decreased from 2.88-1.3. Patient was seen by general surgery and is planning for cholecystectomy possibly thereafter tomorrow. No fever no chills. No chest pain or shortness of breath. Tolerating liquid diet. 09/01/2017 Patient is still having right upper quadrant pain dates to the back. General surgery is planning for cholecystectomy tomorrow. We will continue the IV hydration and antibiotics. No fever no chills. No chest pain or shortness of breath. No nausea vomiting. All other review of systems negative except the above Active Medications Hydrocodone Bitart/Acetaminophen ([place] 5-325) 1 each PO Q6HR PRN PRN Reason: MODERATE Pain Last Admin: 08/31/17 16:58 Dose: 1 each Hydromorphone HCl (Dilaudid) 0.5 mg IVP Q3HR PRN PRN Reason: SEVERE Pain Last Admin: 08/31/17 19:11 Dose: 0.5 mg Piperacillin/Tazobactam/ (Dextrose 3.375 gm/ IV Solution) 50 mls @ 12.5 mls/hr IVPB Q8H [facility] Last Admin: 08/31/17 17:00 Dose: 12.5 mls/hr Dextrose/Sodium Chloride (Dextrose 5%-Ns Iv Soln) 1,000 mls @ 100 mls/hr IV .Q10H [facility] Last Admin: 08/31/17 20:48 Dose: 100 mls/hr Lamotrigine (Lamictal) 100 mg PO BID [facility] Last Admin: 08/31/17 20:18 Dose: 100 mg Naloxone HCl (Narcan) 0.2 mg IV Q2M PRN PRN Reason: Opioid Reversal Nicotine (Habitrol 14mg/24hr Patch) 1 patch TRANSDERM DAILY [facility] Last Admin: 08/31/17 08:28 Dose: 1 patch Ondansetron HCl (Zofran) 4 mg IVP Q8HR PRN PRN Reason: Nausea And Vomiting Last Admin: 08/31/17 08:29 Dose: 4 mg Sucralfate (Carafate) 1 gm PO QID [facility] Last Admin: 08/31/17 17:00 Dose: 1 gm Objective - Vital Signs Vital signs: Vital Signs Temp 97.9 F 09/01/17 14:52 Pulse 63 09/01/17 14:52 Resp 16 09/01/17 14:52 BP 117/83 09/01/17 14:52 Pulse Ox 98 09/01/17 14:52 Intake & Output 08/31/17 09/01/17 09/01/17 18:59 06:59 18:59 Intake Total 800 4525 400 Balance 800 4525 400 Intake: Intake, IV Titration 800 3925 Amount Dextrose 5%-0.9% NaCl 1, 800 1700 000 ml @ 100 mls/hr IV . Q10H [facility] Rx#:[id number] Piperacillin-Tazobactam 3 100 .375 gm In Dextrose/Water 1 50ml.bag @ 12.5 mls/hr IVPB Q8H [facility] Rx#: [id number] Sodium Chloride 0.9% 1, 2125 000 ml @ 125 mls/hr IV . Q8H [facility] Rx#:[id number] Oral 600 400 Other: Voiding Method Toilet # Voids 3 3 2 - Exam PHYSICAL EXAMINATION: Patient is lying in the bed comfortably, no acute distress, awake alert and oriented.. HEENT: Normocephalic. Neck is supple. Pupils reactive. Nostrils clear. Oral cavity is moist. Ears reveal no drainage. Neck reveals no JVD, carotid bruits, or thyromegaly. CHEST EXAMINATION: Trachea is central. Symmetrical expansion. Lung cuevas clear to auscultation and percussion. CARDIAC: Normal S1, S2 with no gallops. No murmurs ABDOMEN: Soft. Mild Right upper quadrant tenderness. Bowel sounds normal. No organomegaly. No abdominal bruits. Extremities: reveal no edema. No clubbing or cyanosis Neurologically awake, alert, oriented x3 with well-coordinated movements. No focal deficits noted Skin: No rash or skin lesions. Psychiatric: Coperative. Nonsuicidal Musculoskeletal: No joint swelling or deformity. Normal range of motion. - Labs CBC & Chem 7: 09/01/17 09:03 09/01/17 09:03 Labs: Abnormal Lab Results - Last 24 Hours (Table) 09/01/17 09/01/17 Range/Units 09:03 09:03 WBC 3.6 L (3.8-10.6) k/uL RBC 3.60 L (3.80-5.40) m/uL MCV 101.7 H (80.0-100.0) fL Plt Count 103 L D (150-450) k/uL Chloride 113 H (98-107) mmol/L Carbon Dioxide 18 L (22-30) mmol/L Glucose 174 H (74-99) mg/dL AST 60 H (14-36) U/L Total Protein 5.4 L (6.3-8.2) g/dL Albumin 3.1 L (3.5-5.0) g/dL Microbiology - Last 24 Hours (Table) 08/30/17 14:58 Blood Culture - Preliminary Blood No Growth after 24 hours Assessment and Plan Assessment: Right upper quadrant pain likely due to acute cholecystitis Acute on chronic kidney disease stage III with creatinine level 2.88. Resolved. Creatinine 1.3--0.94 Mild metabolic acidosis anion gap Solitary right kidney with history of left kidney removal due to large stone Hypertension Hyperlipidemia Mitral valve prolapse History of seizure disorder Anxiety and depression Currently everyday smoker D prophylaxis Plan: Patient continued on IV hydration and antibiotics in the form of Zosyn. Gen. surgery is planning for cholecystectomy.. We will continue the home medications and follow closely. Further recommendations based on the clinical course. Time with Patient: Greater than 30
[2017-09-02] MEDS: ONDANSETRON 4 MG/2 ML VIAL IVP PRN ×2 (02:04→19:44)
[2017-09-02] MEDS: HYDROmorphone 0.5 MG/0.5 ML SYRINGE IVP PRN ×5 (03:47→23:14)
[2017-09-02] MEDS: DEXTROSE 5%-0.9% NACL 1,000 ML IV SCH ×2 (03:47→12:43)
[2017-09-02 07:09] LABS: Basophils % (A) 0 %; Eosinophils # (A) 0.1 k/uL (0-0.7); Eosinophils % (A) 2 %; HCT 38.1 % (34.0-46.0); HGB 12.2 gm/dL (11.4-16.0); Lymphocytes # (A) 1.3 k/uL (1.0-4.8); Lymphocytes % (A) 18 %; MCH 32.3 pg (25.0-35.0); Macrocytosis Slight; Monocytes # (A) 0.4 k/uL (0-1.0); Monocytes % (A) 6 %; Neutrophils # (A) 4.9 k/uL (1.3-7.7); Neutrophils % (A) 72 %; Platelet Count 311 k/uL (150-450); RBC 3.77 m/uL (3.80-5.40); RDW 14.1 % (11.5-15.5); WBC 6.8 k/uL (3.8-10.6)
[2017-09-02 07:36] LABS: ALT 43 U/L (9-52); AST 43 U/L (14-36); Albumin 2.9 g/dL (3.5-5.0); Alkaline Phosphatase 122 U/L (38-126); Anion Gap 10 mmol/L; Bilirubin, Delta 0.2 mg/dL (0.0-0.2); Bilirubin,Unconjugated 0.1 mg/dL (0.0-1.1); Blood Urea Nitrogen 5 mg/dL (7-17); Calcium 8.9 mg/dL (8.4-10.2); Carbon Dioxide 17 mmol/L (22-30); Chloride 116 mmol/L (98-107); Glucose 110 mg/dL (74-99); Potassium 4.2 mmol/L (3.5-5.1); Sodium 143 mmol/L (137-145); Total Bilirubin 0.3 mg/dL (0.2-1.3); Total Protein 5.4 g/dL (6.3-8.2)
[2017-09-02] MEDS ORDERED: SUCCINYLCHOLINE CHLORIDE 100 MG/5 ML SYR IV ONE (07:56)
[2017-09-02] MEDS ORDERED: fentaNYL (PF) 50 MCG/ML 2 ML AMP ONE (07:56)
[2017-09-02] MEDS ORDERED: ROCURONIUM BROMIDE 10 MG/ML 10 ML VIAL IV ONE (07:56)
[2017-09-02] MEDS ORDERED: LABETALOL 5 MG/ML VIAL MDV ONE (07:56)
[2017-09-02] MEDS ORDERED: LACTATED RINGERS 1,000 ML IV ONE (07:56)
[2017-09-02] MEDS ORDERED: ONDANSETRON 4 MG/2 ML VIAL ONE (07:56)
[2017-09-02] MEDS ORDERED: LIDOCAINE 1% INJ 10MG/ML (20 ML MDV) ONE (07:56)
[2017-09-02] MEDS ORDERED: NEOSTIGMINE 1 MG/ML 10 ML VIAL ONE (07:56)
[2017-09-02] MEDS ORDERED: PROPOFOL 10 MG/ML 20 ML VIAL IV ONE (07:56)
[2017-09-02] MEDS ORDERED: HEPARIN SODIUM,PORCINE 5,000 UNIT/ML 1 ML VIAL ONE (07:56)
[2017-09-02] MEDS ORDERED: GLYCOPYRROLATE 0.2 MG/ML 2 ML VIAL ONE (07:56)
[2017-09-02] MEDS ORDERED: MIDAZOLAM 2 MG/2 ML VIAL ONE (07:56)
[2017-09-02] MEDS ORDERED: BUPIVACAINE (PF) 0.5% 30 ML VIAL SQ ONE (07:57)
--- NOTE | 2017-09-02 09:05 | P.OP ---
Date of Procedure: 09/02/17 Preoperative Diagnosis: Acute cholecystitis Postoperative Diagnosis: Acute cholecystitis Procedure(s) Performed: Laparoscopic cholecystectomy Anesthesia: LEILANI Surgeon: Domenica Najera Estimated Blood Loss (ml): 30 Pathology: other (Gallbladder) Condition: stable Disposition: floor Indications for Procedure: 52-year-old female presented secondary to right upper quadrant pain and epigastric pain. She was seen at an outside facility and was to follow-up with her surgeon at that time. She states the pain recurred and secondary to that she was transferred to our facility. Due to continued right upper quadrant pain and diagnosis of acute cholecystitis, plan for laparoscopic cholecystectomy was made. The patient was explained the risks, benefits and alternatives to the procedure. The patient did provide consent prior to attending the operating suite. Operative Findings: Inflamed gallbladder, multiple peritoneal attachments to the gallbladder Description of Procedure: The patient was brought into the operating suite and placed in supine position on the operating table. Sedation was provided by anesthesia and the patient underwent endotracheal intubation. The patient was then prepped and draped in regular sterile fashion. An infraumbilical incision was made dissection was carried to the fascia and the fascia was incised. The abdomen was entered with a 12 mm trocar pneumoperitoneum was achieved. 3 additional 5 mm ports were placed. One was placed in the subxiphoid region. 2 were placed in the right upper quadrant. The gallbladder was then grasped and retracted and it was noted to have many omental and peritoneal adhesions. Blunt dissection was used to dissect the adhesions from the gallbladder. The gallbladder was then retracted superiorly and was grasped by the fundus and retracted laterally. Dissection was then carried to the cystic duct and cystic artery. Both were clearly visualized. Critical view was maintained. The cystic duct and cystic artery were then skeletonized. 2 clips were placed proximally and the cystic duct one was placed sterilely and the cystic duct was ligated. 2 clips were placed proximally on the cystic artery one was placed distally and the cystic artery was ligated. Electrocautery was then used to dissect the gallbladder from the gallbladder fossa. Hemostasis was maintained. The gallbladder was then placed in an Endo Catch bag and removed from the abdomen. Copious muss irrigation was then placed in the right upper quadrant. Hemostasis was again noted to be maintained. Snow hemostatic agent was used in the liver bed. Pneumoperitoneum was released and all ports removed from the abdomen. The infraumbilical fascial incision site was closed with multiple [id number] 0 Vicryl sutures. All skin incisions were closed with 4-0 Vicryl subcuticular sutures. Sterile dressing was applied. The patient was awakened in the operating suite and taken to postanesthesia care unit in stable condition.
[2017-09-02] MEDS ORDERED: HYDROmorphone 1 MG/ML 1 ML SYRINGE IVP ONE ×4 (09:10→09:29)
[2017-09-02] MEDS: PIPERACILLIN-TAZOBACTAM 3.375 GM in DEXTROSE/WATER 1 50ML.BAG IVPB SCH ×3 (09:12→17:11)
[2017-09-02] MEDS: lamoTRIgine 100 MG TAB PO SCH ×2 (09:12→21:39)
[2017-09-02] MEDS: SUCRALFATE 1 GM TAB PO SCH ×4 (09:12→21:39)
[2017-09-02] MEDS: NICOTINE 14MG/24HR PATCH TRANSDERM SCH ×2 (09:12→12:42)
[2017-09-02] MEDS ORDERED: MEPERIDINE 50 MG/ML SYRINGE IVP ONE (09:35)
[2017-09-02] MEDS: HYDROcodone/APAP 5-325MG 1 EACH TAB PO PRN ×2 (14:36→21:39)
[2017-09-03] MEDS: HYDROcodone/APAP 5-325MG 1 EACH TAB PO PRN ×2 (03:04→09:38)
[2017-09-03] MEDS: PIPERACILLIN-TAZOBACTAM 3.375 GM in DEXTROSE/WATER 1 50ML.BAG IVPB SCH ×2 (03:27→09:33)
[2017-09-03] MEDS: DEXTROSE 5%-0.9% NACL 1,000 ML IV SCH ×2 (03:29→08:06)
[2017-09-03 07:49] LABS: Basophils % (A) 0 %; Eosinophils % (A) 0 %; HCT 37.4 % (34.0-46.0); HGB 12.1 gm/dL (11.4-16.0); Lymphocytes # (A) 1.2 k/uL (1.0-4.8); Lymphocytes % (A) 11 %; MCH 32.5 pg (25.0-35.0); MCHC 32.4 g/dL (31.0-37.0); MCV 100.3 fL (80.0-100.0); Macrocytosis Slight; Mean Platelet Volume 6.8; Monocytes # (A) 0.8 k/uL (0-1.0); Monocytes % (A) 7 %; Neutrophils # (A) 8.7 k/uL (1.3-7.7); Neutrophils % (A) 80 %; Platelet Count 347 k/uL (150-450); RBC 3.73 m/uL (3.80-5.40); RDW 14.4 % (11.5-15.5); WBC 10.9 k/uL (3.8-10.6)
[2017-09-03] MEDS: SUCRALFATE 1 GM TAB PO SCH ×2 (08:03→12:13)
[2017-09-03] MEDS: NICOTINE 14MG/24HR PATCH TRANSDERM SCH (08:03)
[2017-09-03] MEDS: lamoTRIgine 100 MG TAB PO SCH (08:03)
[2017-09-03 08:04] LABS: ALT 57 U/L (9-52); AST 63 U/L (14-36); Albumin 3.1 g/dL (3.5-5.0); Alkaline Phosphatase 109 U/L (38-126); Anion Gap 11 mmol/L; Bilirubin, Delta 0.3 mg/dL (0.0-0.2); Bilirubin,Unconjugated 0.2 mg/dL (0.0-1.1); Blood Urea Nitrogen 3 mg/dL (7-17); Carbon Dioxide 18 mmol/L (22-30); Chloride 113 mmol/L (98-107); Glucose 112 mg/dL (74-99); Sodium 142 mmol/L (137-145); Total Bilirubin 0.5 mg/dL (0.2-1.3); Total Protein 5.5 g/dL (6.3-8.2)
--- NOTE | 2017-09-03 08:25 | P.PN ---
Subjective Progress Note Date: 09/03/17 Patient seen and examined at bedside. States pain is well-controlled. Denies any nausea and vomiting. Tolerating clear liquid diet. Objective - Vital Signs Vital signs: Vital Signs Temp 99.5 F 09/03/17 01:13 Pulse 79 09/03/17 01:13 Resp 18 09/03/17 01:13 BP 143/85 09/03/17 01:13 Pulse Ox 93 L 09/03/17 01:13 Intake & Output 09/02/17 09/03/17 09/03/17 18:59 06:59 18:59 Intake Total 1700 1350 Output Total 30 Balance 1670 1350 Intake: IV 900 Intake, IV Titration 800 1250 Amount Dextrose 5%-0.9% NaCl 1, 800 1200 000 ml @ 100 mls/hr IV . Q10H [facility] Rx#:[id number] Piperacillin-Tazobactam 3 50 .375 gm In Dextrose/Water 1 50ml.bag @ 12.5 mls/hr IVPB Q8H [facility] Rx#: [id number] Oral 0 100 Output: Estimated Blood Loss 30 Other: Voiding Method Toilet # Voids 4 - Constitutional General appearance: Present: cooperative, no acute distress - EENT ENT: Present: hearing grossly normal - Respiratory Details: No difficulty with respiration - Gastrointestinal Gastrointestinal Comment(s): Soft, appropriate tenderness, nondistended, no rebound, no guarding - Psychiatric Psychiatric: Present: A&O x's 3, appropriate affect - Labs CBC & Chem 7: 09/03/17 06:52 09/03/17 06:52 Labs: Abnormal Lab Results - Last 24 Hours (Table) 09/03/17 09/03/17 Range/Units 06:52 06:52 WBC 10.9 H (3.8-10.6) k/uL RBC 3.73 L (3.80-5.40) m/uL MCV 100.3 H (80.0-100.0) fL Neutrophils # 8.7 H (1.3-7.7) k/uL Chloride 113 H (98-107) mmol/L Carbon Dioxide 18 L (22-30) mmol/L BUN 3 L (7-17) mg/dL Glucose 112 H (74-99) mg/dL Delta Bilirubin 0.3 H (0.0-0.2) mg/dL AST 63 H (14-36) U/L ALT 57 H (9-52) U/L Total Protein 5.5 L (6.3-8.2) g/dL Albumin 3.1 L (3.5-5.0) g/dL Microbiology - Last 24 Hours (Table) 08/30/17 14:58 Blood Culture - Preliminary Blood No Growth after 72 hours Assessment and Plan (1) Acute cholecystitis Narrative/Plan: 52-year-old female with acute cholecystitis, postoperative day #1 status post laparoscopic cholecystectomy - Laboratory values reviewed, begin soft diet - Continue to increase activity - Patient is stable for discharge per surgery. I did prescribe the patient opiate pain medication for 3 days. I did review the 'start talking' paperwork with the patient. - Follow up with me in 7-10 days Current Visit: Yes Status: Acute Code(s): K81.0 - ACUTE CHOLECYSTITIS SNOMED Code(s): 32214736 (2) Acute renal failure Current Visit: Yes Status: Acute Code(s): N17.9 - ACUTE KIDNEY FAILURE, UNSPECIFIED SNOMED Code(s): 80307513
[2017-09-03 08:55] VITALS: BP 162/93; PULSE 83; RESP 17; TEMP 99.4
[2017-09-03] MEDS ORDERED: LISINOPRIL 10 MG TAB PO SCH (12:15)
--- NOTE | 2017-09-03 12:18 | P.PN ---
Subjective Progress Note Date: 09/02/17 Principal diagnosis: Acute cholecystitis Patient is a 52-year-old female with a known history of hypertension, hyperlipidemia and mitral valve prolapse as well as solitary right kidney presented to ER with complaints of worsening right upper quadrant abdominal pain. Patient was seen at outside hospital about one week ago with right upper quadrant pain where she had CT of abdomen pelvis as well as WAS DONE. PATIENT WAS FOUND HAVE ACUTE CHOLECYSTITIS AND WAS REFERRED TO GENERAL SURGERY. PATIENT WAS STARTED ON ANTIBIOTICS UNTIL FOLLOW-UP WITH SURGERY CLINIC. PATIENT TODAY SAYS THAT HER PAIN GOT WORSE SIGNIFICANTLY AND CAME TO THE HOSPITAL FOR EVALUATION. She has had nausea, no significant vomiting. No fever but she has had chills. Pain is epigastric and right upper quadrant. Past medical history of hypertension, remote history of nephrectomy and total hysterectomy. Patient does have history of left kidney removal due to large stone. Patient wass started on IV antibiotics and general surgery was consulted for possible cholecystectomy. 08/31/2017 Patient does have right upper quadrant abdominal pain radiating to the back. Otherwise patient is controlled with pain medications. They'll function improved with creatinine level decreased from 2.88-1.3. Patient was seen by general surgery and is planning for cholecystectomy possibly thereafter tomorrow. No fever no chills. No chest pain or shortness of breath. Tolerating liquid diet. 09/01/2017 Patient is still having right upper quadrant pain dates to the back. General surgery is planning for cholecystectomy tomorrow. We will continue the IV hydration and antibiotics. No fever no chills. No chest pain or shortness of breath. No nausea vomiting. 09/02/2017 Patient is status post laparoscopic cholecystectomy today. Denied any complaints of right upper quadrant pain radiating to the back. Patient does have some soreness at the surgical site. No fever no chills. No cough was of chest pain or shortness of breath. Denied any nausea or vomiting. All other review of systems negative except the above Active Medications Hydrocodone Bitart/Acetaminophen ([place] 5-325) 1 each PO Q6HR PRN PRN Reason: MODERATE Pain Last Admin: 08/31/17 16:58 Dose: 1 each Hydromorphone HCl (Dilaudid) 0.5 mg IVP Q3HR PRN PRN Reason: SEVERE Pain Last Admin: 08/31/17 19:11 Dose: 0.5 mg Piperacillin/Tazobactam/ (Dextrose 3.375 gm/ IV Solution) 50 mls @ 12.5 mls/hr IVPB Q8H [facility] Last Admin: 08/31/17 17:00 Dose: 12.5 mls/hr Dextrose/Sodium Chloride (Dextrose 5%-Ns Iv Soln) 1,000 mls @ 100 mls/hr IV .Q10H [facility] Last Admin: 08/31/17 20:48 Dose: 100 mls/hr Lamotrigine (Lamictal) 100 mg PO BID [facility] Last Admin: 08/31/17 20:18 Dose: 100 mg Naloxone HCl (Narcan) 0.2 mg IV Q2M PRN PRN Reason: Opioid Reversal Nicotine (Habitrol 14mg/24hr Patch) 1 patch TRANSDERM DAILY [facility] Last Admin: 08/31/17 08:28 Dose: 1 patch Ondansetron HCl (Zofran) 4 mg IVP Q8HR PRN PRN Reason: Nausea And Vomiting Last Admin: 08/31/17 08:29 Dose: 4 mg Sucralfate (Carafate) 1 gm PO QID [facility] Last Admin: 08/31/17 17:00 Dose: 1 gm Objective - Vital Signs Vital signs: Vital Signs Temp 98.7 F 09/02/17 14:09 Pulse 69 09/02/17 14:09 Resp 16 09/02/17 14:09 BP 124/77 09/02/17 14:09 Pulse Ox 97 09/02/17 14:09 Intake & Output 09/01/17 09/02/17 09/02/17 18:59 06:59 18:59 Intake Total 760 1500 1700 Output Total 30 Balance 760 1500 1670 Intake: IV 900 Intake, IV Titration 1500 800 Amount Dextrose 5%-0.9% NaCl 1, 1400 800 000 ml @ 100 mls/hr IV . Q10H [facility] Rx#:[id number] Piperacillin-Tazobactam 3 100 .375 gm In Dextrose/Water 1 50ml.bag @ 12.5 mls/hr IVPB Q8H [facility] Rx#: [id number] Oral 760 0 Output: Estimated Blood Loss 30 Other: # Voids 2 2 - Exam PHYSICAL EXAMINATION: Patient is lying in the bed comfortably, no acute distress, awake alert and oriented.. HEENT: Normocephalic. Neck is supple. Pupils reactive. Nostrils clear. Oral cavity is moist. Ears reveal no drainage. Neck reveals no JVD, carotid bruits, or thyromegaly. CHEST EXAMINATION: Trachea is central. Symmetrical expansion. Lung cuevas clear to auscultation and percussion. CARDIAC: Normal S1, S2 with no gallops. No murmurs ABDOMEN: Soft. Mild soreness at the surgical site. Bowel sounds normal. No organomegaly. No abdominal bruits. Extremities: reveal no edema. No clubbing or cyanosis Neurologically awake, alert, oriented x3 with well-coordinated movements. No focal deficits noted Skin: No rash or skin lesions. Psychiatric: Coperative. Nonsuicidal Musculoskeletal: No joint swelling or deformity. Normal range of motion. - Labs CBC & Chem 7: 09/03/17 06:52 09/03/17 06:52 Labs: Abnormal Lab Results - Last 24 Hours (Table) 09/02/17 09/02/17 Range/Units 06:13 06:13 RBC 3.77 L (3.80-5.40) m/uL MCV 101.0 H (80.0-100.0) fL Chloride 116 H (98-107) mmol/L Carbon Dioxide 17 L (22-30) mmol/L BUN 5 L (7-17) mg/dL Glucose 110 H (74-99) mg/dL AST 43 H (14-36) U/L Total Protein 5.4 L (6.3-8.2) g/dL Albumin 2.9 L (3.5-5.0) g/dL Microbiology - Last 24 Hours (Table) 08/30/17 14:58 Blood Culture - Preliminary Blood No Growth after 48 hours Assessment and Plan Assessment: Right upper quadrant pain likely due to acute cholecystitis. Status post laparoscopic cholecystectomy. Acute on chronic kidney disease stage III with creatinine level 2.88. Resolved. Creatinine 1.3--0.94 Mild metabolic acidosis anion gap. Resolved Solitary right kidney with history of left kidney removal due to large stone Hypertension Hyperlipidemia Mitral valve prolapse History of seizure disorder Anxiety and depression Currently everyday smoker DVT prophylaxis Plan: Patient will be continued on IV hydration and antibiotics in the form of Zosyn. Gen. surgery ion board... We will continue the home medications and follow closely. [place] blood pressure medications as well. Encourage ambulation and incentive spirometry. Further recommendations based on the clinical course. Time with Patient: Greater than 30
--- NOTE | 2017-09-03 12:21 | P.DS ---
Providers Date of admission: 08/30/17 15:49 Expected date of discharge: 09/03/17 Attending physician: Steve Moe Consults: 08/30/17 15:49 Consult Physician Urgent Consulting Provider: Domenica Najera Consult Reason/Comments: Acute cholecystitis Do you want consulting provider notified?: Already Contacted Primary care physician: [facility] Course: Discharge diagnosis Right upper quadrant pain likely due to acute cholecystitis. Status post laparoscopic cholecystectomy on 09/02/2017. Acute on chronic kidney disease stage III with creatinine level 2.88. Resolved. Creatinine 1.3--0.94--0.77 Mild metabolic acidosis anion gap. Resolved Solitary right kidney with history of left kidney removal due to large stone Hypertension Hyperlipidemia Mitral valve prolapse History of seizure disorder Anxiety and depression Currently everyday smoker DVT prophylaxis Hospital course Patient is a 52-year-old female with a known history of hypertension, hyperlipidemia and mitral valve prolapse as well as solitary right kidney presented to ER with complaints of worsening right upper quadrant abdominal pain. Patient was seen at outside hospital about one week ago with right upper quadrant pain where she had CT of abdomen pelvis as well as WAS DONE. PATIENT WAS FOUND HAVE ACUTE CHOLECYSTITIS AND WAS REFERRED TO GENERAL SURGERY. PATIENT WAS STARTED ON ANTIBIOTICS UNTIL FOLLOW-UP WITH SURGERY CLINIC. PATIENT TODAY SAYS THAT HER PAIN GOT WORSE SIGNIFICANTLY AND CAME TO THE HOSPITAL FOR EVALUATION. She has had nausea, no significant vomiting. No fever but she has had chills. Pain is epigastric and right upper quadrant. Past medical history of hypertension, remote history of nephrectomy and total hysterectomy. Patient does have history of left kidney removal due to large stone. Patient wass started on IV antibiotics and general surgery was consulted for possible cholecystectomy. 08/31/2017 Patient does have right upper quadrant abdominal pain radiating to the back. Otherwise patient is controlled with pain medications. They'll function improved with creatinine level decreased from 2.88-1.3. Patient was seen by general surgery and is planning for cholecystectomy possibly thereafter tomorrow. No fever no chills. No chest pain or shortness of breath. Tolerating liquid diet. 09/01/2017 Patient is still having right upper quadrant pain dates to the back. General surgery is planning for cholecystectomy tomorrow. We will continue the IV hydration and antibiotics. No fever no chills. No chest pain or shortness of breath. No nausea vomiting. 09/02/2017 Patient is status post laparoscopic cholecystectomy today. Denied any complaints of right upper quadrant pain radiating to the back. Patient does have some soreness at the surgical site. No fever no chills. No cough was of chest pain or shortness of breath. Denied any nausea or vomiting. 09/03/2017 Patient denied any complaints of abdominal pain.. No nausea or vomiting. Tolerating liquid diets and will be advanced as tolerated. Pain is well controlled. No commerce of chest pain or shortness of breath today. Patient is cleared from surgery. Patient is eager to be discharged home. Discharge physical examination PHYSICAL EXAMINATION: Patient is lying in the bed comfortably, no acute distress, awake alert and oriented.. HEENT: Normocephalic. Neck is supple. Pupils reactive. Nostrils clear. Oral cavity is moist. Ears reveal no drainage. Neck reveals no JVD, carotid bruits, or thyromegaly. CHEST EXAMINATION: Trachea is central. Symmetrical expansion. Lung cuevas clear to auscultation and percussion. CARDIAC: Normal S1, S2 with no gallops. No murmurs ABDOMEN: Soft. mild soreness at the surgical site. Bowel sounds normal. No organomegaly. No abdominal bruits. Extremities: reveal no edema. No clubbing or cyanosis Neurologically awake, alert, oriented x3 with well-coordinated movements. No focal deficits noted Skin: No rash or skin lesions. Psychiatric: Cooperative. Nonsuicidal Musculoskeletal: No joint swelling or deformity. Normal range of motion. Vital Signs 09/03/17 07:30 Temperature 99.4 F Pulse Rate [ 83 Left] Respiratory 17 Rate Blood Pressure 162/93 [Right Arm] O2 Sat by Pulse 97 Oximetry Patient Condition at Discharge: Stable Plan - Discharge Summary Discharge Rx Participant: Yes New Discharge Prescriptions: New HYDROcodone/APAP 5-325MG [[place] 5-325] 1 tab PO Q6HR PRN 3 Days #12 tab PRN Reason: Pain Continue Sucralfate 1 gm PO QID lamoTRIgine [LaMICtal] 100 mg PO BID Ondansetron [Zofran ODT] 8 mg PO QID PRN PRN Reason: Nausea Aspirin EC [Ecotrin Low Dose] 81 mg PO DAILY Lisinopril [Zestril] 10 mg PO DAILY Carvedilol [Coreg] 12.5 mg PO BID Discontinued Cephalexin [Keflex] 500 mg PO QID Discharge Medication List Sucralfate 1 gm PO QID 03/24/14 [History] lamoTRIgine [LaMICtal] 100 mg PO BID 09/09/14 [History] Aspirin EC [Ecotrin Low Dose] 81 mg PO DAILY 08/30/17 [History] Carvedilol [Coreg] 12.5 mg PO BID 08/30/17 [History] Lisinopril [Zestril] 10 mg PO DAILY 08/30/17 [History] Ondansetron [Zofran ODT] 8 mg PO QID PRN 08/30/17 [History] HYDROcodone/APAP 5-325MG [[place] 5-325] 1 tab PO Q6HR PRN 3 Days #12 tab [Rx] Follow up Appointment(s)/Referral(s): Ike Fitzpatrick MD [Primary Care Provider] - 1-2 days Domenica Najera DO [Doctor of Osteopathic Medicine] - 10 Days Patient Instructions/Handouts: Laparoscopic Cholecystectomy (DC) Discharge Disposition: HOME SELF-CARE
[2017-09-03] MEDS ORDERED: CARVEDILOL 12.5 MG TAB PO SCH (17:30)
[2017-09-04] MEDS ORDERED: ASPIRIN 81 MG PO SCH (09:00)
== END 2017-09-03 15:05 | disposition home or self-care (01) | DRG 418 ==
LOC: EC 13:58 → 3SUR 15:49
PROVIDERS: ADMIT Hospitalist; ATTEND Hospitalist
PROC: 0FT44ZZ Resection of Gallbladder, Percutaneous Endoscopic Approach (ICD-10-PCS; principal; 2017-09-02 08:00)
DX: K81.0 Acute cholecystitis (principal); E87.2 Acidosis; N17.9 Acute kidney failure, unspecified; E78.5 Hyperlipidemia, unspecified; F17.210 Nicotine dependence, cigarettes, uncomplicated; F32.9 Major depressive disorder, single episode, unspecified; F41.9 Anxiety disorder, unspecified; G40.909 Epilepsy, unspecified, not intractable, without status epilepticus; I12.9 Hypertensive chronic kidney disease with stage 1 through stage 4 chronic kidney disease, or unspecified chronic kidney disease; I34.1 Nonrheumatic mitral (valve) prolapse; N18.3 Chronic kidney disease, stage 3 (moderate); E86.0 Dehydration; Z87.442 Personal history of urinary calculi; Z90.5 Acquired absence of kidney; Z90.710 Acquired absence of both cervix and uterus; Z79.82 Long term (current) use of aspirin; Z79.899 Other long term (current) drug therapy; Z98.51 Tubal ligation status; Z88.6 Allergy status to analgesic agent; Z88.1 Allergy status to other antibiotic agents; Z88.2 Allergy status to sulfonamides; Z88.8 Allergy status to other drugs, medicaments and biological substances
CPT/HCPCS: 36415; 80048; 80053; 80076; 81001; 82150; 83605; 83690; 85025; 85610; 85730; 86850; 86900; 86901; 87040; 88304; 96361; 96374; 99285

== ENCOUNTER 2021-11-14 00:30 | Observation (INO) | payer BC, OTHER ==
[2021-11-14] MEDS ORDERED: SODIUM CHLORIDE 0.9% 1,000 ML IV STA (00:50)
[2021-11-14] MEDS ORDERED: fentaNYL (PF) 50 MCG/ML 2 ML AMP IVP STA (01:34)
--- NOTE | 2021-11-14 01:58 | XR ---
EXAMINATION TYPE: XR chest 2V DATE OF EXAM: 11/14/2021 COMPARISON: 07/15/2013 HISTORY: Chest pain TECHNIQUE: 2 views FINDINGS: There is no heart failure nor confluent pneumonic infiltrate. Costophrenic angles are clear . Bony thorax is intact. No pleural effusion. IMPRESSION: No active cardiopulmonary disease. Normal heart. No change.
[2021-11-14 02:21] LABS: Basophils % (A) 1 %; Eosinophils # (A) 0.3 k/uL (0-0.7); Eosinophils % (A) 3 %; HCT 40.2 % (34.0-46.0); HGB 12.8 gm/dL (11.4-16.0); Lymphocytes # (A) 3.3 k/uL (1.0-4.8); Lymphocytes % (A) 37 %; MCH 31.8 pg (25.0-35.0); MCHC 31.8 g/dL (31.0-37.0); MCV 100.1 fL (80.0-100.0); Mean Platelet Volume 7.9; Monocytes # (A) 0.5 k/uL (0-1.0); Monocytes % (A) 6 %; Neutrophils # (A) 4.6 k/uL (1.3-7.7); Neutrophils % (A) 52 %; Platelet Count 255 k/uL (150-450); RBC 4.02 m/uL (3.80-5.40); RDW 13.6 % (11.5-15.5); WBC 8.8 k/uL (3.8-10.6)
--- NOTE | 2021-11-14 02:21 | ED ---
General Adult HPI - General Chief complaint: Chest Pain Stated complaint: Chest pain Time Seen by Provider: 11/14/21 00:37 Source: patient, EMS, RN notes reviewed, old records reviewed Mode of arrival: EMS - History of Present Illness Initial comments: Patient is a 56-year-old female with past medical history remarkable for hypertension, renal disease, peripheral artery disease, chronic chest pain of unknown etiology who presents Department complaining of acute on chronic chest pain. States she has receiving follow-up outpatient with [facility]. Scheduled for a stress test there. States that she had sternal chest pain 10 out of 10 earlier today. She attempted to take nitroglycerin tablets at home. She took two initially, then a third from ems. They did not improve her pain she states. She received 324 mg of aspirin from EMS. Received sign on the ride down and states that this did improve her pain. She does endorse drinking alcohol this evening. Denies any nausea, vomiting, diarrhea, abdominal pain. Denies any shortness of breath. Difficult to describe etiology of the pain. States she did not become diaphoretic. She was sitting at a bonfire when the pain started. Called EMS. Was brought here for further evaluation. Pain started approximately 11 PM. - Related Data Home Medications Medication Instructions Recorded Confirmed Sucralfate 1 gm PO QID 03/24/14 08/30/17 lamoTRIgine [LaMICtal] 100 mg PO BID 09/09/14 08/30/17 Aspirin EC [Ecotrin Low Dose] 81 mg PO DAILY 08/30/17 08/30/17 Ondansetron [Zofran ODT] 8 mg PO QID PRN 08/30/17 08/30/17 carvediloL [Coreg] 12.5 mg PO BID 08/30/17 08/30/17 lisinopriL [Zestril] 10 mg PO DAILY 08/30/17 08/30/17 Previous Rx's Medication Instructions Recorded HYDROcodone/APAP 5-325MG [[place] 1 tab PO Q6HR PRN 3 Days #12 tab 09/03/17 5-325] Allergies Allergy/AdvReac Type Severity Reaction Status Date / Time sulfamethoxazole Allergy Severe Unknown Verified 08/30/17 14:30 [From Bactrim] rofecoxib [From Vioxx] Allergy Anaphylaxis Verified 08/30/17 14:30 trimethoprim [From Bactrim] Allergy Unknown Verified 08/30/17 14:30 NSAIDS (Non-Steroidal AdvReac Unknown Verified 08/30/17 14:30 Anti-Inflamma Review of Systems ROS Statement: Those systems with pertinent positive or pertinent negative responses have been documented in the HPI. Review of Systems: CONST: Denies fever EYES: Denies blurry vision ENT: Denies nasal congestion C/V: Endorses chest pain RESP: Denies shortness of breath GI: Denies abdominal pain : Denies dysuria SKIN: Denies rash. MSK: Denies joint pain. NEURO: Denies headache ROS Other: All systems not noted in ROS Statement are negative. Past Medical History Past Medical History: Hyperlipidemia, Hypertension, Mitral Valve Prolapse (MVP), Renal Disease, Seizure Disorder Additional Past Medical History / Comment(s): PAD ( 2 blocked arteries in the base of her brain-neurologist reports that they are very small and she will likely have a CVA due to them) , Last seizure was over 3 years ago History of Any Multi-Drug Resistant Organisms: None Reported Past Surgical History: Section, Hysterectomy, Tubal Ligation Additional Past Surgical History / Comment(s): L. kidney removed Past Anesthesia/Blood Transfusion Reactions: No Reported Reaction Past Psychological History: Anxiety, Depression Past Alcohol Use History: None Reported Past Drug Use History: None Reported - Past Family History Father Family Medical History: Unable to Obtain Additional Family Medical History / Comment(s): Pt. Was adopted General Exam - General Exam Comments Initial Comments: General: Appears in no acute distress. Appears acutely intoxicated with alcoh ol. HEAD: Normal with no signs of head trauma. EYES: PERRLA, EOMI, conjunctiva normal, no discharge. ENT: Hearing grossly intact, normal oropharynx. RESPIRATORY: Clear breath sounds bilaterally. No wheezes, rales, or rhonchi. C/V: Regular rate and rhythm. S1 and S2 auscultated, no edema, peripheral pulses 2+ and intact throughout. Chest pain nonreproducible on palpation. ABD: Abdomen is soft, nondistended. Slight epigastric abdominal pain on palpation. No guarding. No rebound tenderness. EXT: Normal range of motion, no obvious deformity SKIN: No rashes or lesions observed on exposed skin. NEURO: Alert and oriented 4. Course Vital Signs 11/14/21 11/14/21 11/14/21 00:37 01:51 03:26 Temperature 979 F H Pulse Rate 88 66 71 Respiratory 15 17 Rate Blood Pressure 108/56 95/61 109/70 O2 Sat by Pulse 98 100 Oximetry Medical Decision Making - Medical Decision Making Based on the patient's presentation and physical exam, I'm concerned for poss ible cardiopulmonary etiology for her current symptoms. Chest appears acutely intoxicated with alcohol. Nitroglycerin has not affected her chest pain at all this evening. I will provide her with IV fluids as well as another dose of fentanyl. We will obtain cardio pulmonary labs. She was in agreement this plan. Vital signs are within normal limits.Patient has already received 324 mg of aspirin from ems. EKG shows no signs of acute ischemia. His x-ray shows no acute cardiopulmonary process. Laboratory studies are remarkable for a undetectable troponin. Alcohol level is elevated. On reevaluation, patient is improved. Fentanyl does help the pain. I would like to admit her to cardiac observation. Heart score is moderate at 4. She was in agreement this plan. Cardiology is consulted. Echo was ordered. I spoke with the admitting physician, Dr. Stubbs who accepted the patient. Patient was admitted to observation telemetry. - Lab Data Result diagrams: 11/14/21 01:48 11/14/21 01:48 Lab Results 11/14/21 11/14/21 11/14/21 Range/Units 01:48 01:48 01:48 WBC 8.8 (3.8-10.6) k/uL RBC 4.02 (3.80-5.40) m/uL Hgb 12.8 (11.4-16.0) gm/dL Hct 40.2 (34.0-46.0) % MCV 100.1 H (80.0-100.0) fL MCH 31.8 (25.0-35.0) pg MCHC 31.8 (31.0-37.0) g/dL RDW 13.6 (11.5-15.5) % Plt Count 255 (150-450) k/uL MPV 7.9 Neutrophils % 52 % Lymphocytes % 37 % Monocytes % 6 % Eosinophils % 3 % Basophils % 1 % Neutrophils # 4.6 (1.3-7.7) k/uL Lymphocytes # 3.3 (1.0-4.8) k/uL Monocytes # 0.5 (0-1.0) k/uL Eosinophils # 0.3 (0-0.7) k/uL Basophils # 0.0 (0-0.2) k/uL PT 10.5 (9.0-12.0) sec INR 1.0 (<1.2) APTT 22.6 (22.0-30.0) sec Sodium 135 L (137-145) mmol/L Potassium 4.4 (3.5-5.1) mmol/L Chloride 104 (98-107) mmol/L Carbon Dioxide 20 L (22-30) mmol/L Anion Gap 11 mmol/L BUN 11 (7-17) mg/dL Creatinine 0.95 (0.52-1.04) mg/dL Est GFR (CKD-EPI)AfAm 79 (>60 ml/min/1.73 sqM) Est GFR (CKD-EPI)NonAf 69 (>60 ml/min/1.73 sqM) Glucose 90 (74-99) mg/dL Calcium 8.1 L (8.4-10.2) mg/dL Magnesium 1.8 (1.6-2.3) mg/dL Total Bilirubin 0.3 (0.2-1.3) mg/dL AST 79 H (14-36) U/L ALT 23 (4-34) U/L Alkaline Phosphatase 94 (38-126) U/L Troponin I (0.000-0.034) ng/mL Total Protein 5.9 L (6.3-8.2) g/dL Albumin 3.5 (3.5-5.0) g/dL Serum Alcohol 158 mg/dL 11/14/21 Range/Units 01:48 WBC (3.8-10.6) k/uL RBC (3.80-5.40) m/uL Hgb (11.4-16.0) gm/dL Hct (34.0-46.0) % MCV (80.0-100.0) fL MCH (25.0-35.0) pg MCHC (31.0-37.0) g/dL RDW (11.5-15.5) % Plt Count (150-450) k/uL MPV Neutrophils % % Lymphocytes % % Monocytes % % Eosinophils % % Basophils % % Neutrophils # (1.3-7.7) k/uL Lymphocytes # (1.0-4.8) k/uL Monocytes # (0-1.0) k/uL Eosinophils # (0-0.7) k/uL Basophils # (0-0.2) k/uL PT (9.0-12.0) sec INR (<1.2) APTT (22.0-30.0) sec Sodium (137-145) mmol/L Potassium (3.5-5.1) mmol/L Chloride (98-107) mmol/L Carbon Dioxide (22-30) mmol/L Anion Gap mmol/L BUN (7-17) mg/dL Creatinine (0.52-1.04) mg/dL Est GFR (CKD-EPI)AfAm (>60 ml/min/1.73 sqM) Est GFR (CKD-EPI)NonAf (>60 ml/min/1.73 sqM) Glucose (74-99) mg/dL Calcium (8.4-10.2) mg/dL Magnesium (1.6-2.3) mg/dL Total Bilirubin (0.2-1.3) mg/dL AST (14-36) U/L ALT (4-34) U/L Alkaline Phosphatase (38-126) U/L Troponin I <0.012 (0.000-0.034) ng/mL Total Protein (6.3-8.2) g/dL Albumin (3.5-5.0) g/dL Serum Alcohol mg/dL - EKG Data -: EKG Interpreted by Me EKG Comments: 12-lead Electrocardiogram Interpretation Note EKG was reviewed and interpreted by myself. 12-lead ECG performed at 0037 is interpreted by me as revealing normal sinus rhythm at a rate of 61 beats per minute. [place] is normal. CA interval is 191 ms, QRS duration is 97 ms, QTc is 412 ms. There is an isolated T-wave inversion in lead III.. There were no other ST or T wave abnormalities to suggest myocardial ischemia or injury. R wave progression across the precordium was satisfactory. By my interpretation this EKG is non-diagnostic for acute ischemia. Disposition Clinical Impression: Chest pain Disposition: ADMITTED IP TO THIS [facility] Condition: Stable Referrals: Ike Fitzpatrick MD [Primary Care Provider] - 1-2 days Time of Disposition: 03:35
[2021-11-14 02:43] LABS: Albumin 3.5 g/dL (3.5-5.0); Calcium 8.1 mg/dL (8.4-10.2); Magnesium 1.8 mg/dL (1.6-2.3); Potassium 4.4 mmol/L (3.5-5.1); Total Bilirubin 0.3 mg/dL (0.2-1.3); Total Protein 5.9 g/dL (6.3-8.2)
[2021-11-14 02:45] LABS: Partial Thromboplastin Time 22.6 sec (22.0-30.0); Prothrombin Time 10.5 sec (9.0-12.0)
[2021-11-14] MEDS ORDERED: fentaNYL (PF) 50 MCG/ML 2 ML AMP IVP PRN (03:06)
[2021-11-14] MEDS ORDERED: NALOXONE 0.4 MG/ML 1 ML VIAL IV PRN (03:55)
--- NOTE | 2021-11-14 04:14 | P.HPIM ---
History of Present Illness H&P Date: 11/14/21 Chief Complaint: chest pain 56-year-old female with hypertension, peripheral artery disease patient comes in for chest pain , she reports freqeunt episodes of chest pain recently , for which she saw a switch tender last week, who ordered some test that she did not get to do yet. today while resting doing nothing, she started experiencing central chest pain , radiating to the neck , associated with nausea, and shortness of breath , and dizzness, denies any vomiting, palpitations. fever, chills, cough, abd pain , changes in bowel or urinary habits. normally pain goes away within 30-60 min , she took nitro pills with not much benefit today, for which she decided to come to the hosptial , called EMS< and was given more nitro pills, and aspirin which helped ease the pain. today was her 4th-5th episode of chest pain since August 2021, cant identify a trigger for these episodes, she claims that its not similar to her stomach pain that she normally experiences. denies any recent travel or hospital stay EKG in the ED no acute ST changes. troponin negative , mild hyponatremia patient recently had COVID , about 20 days ago , she is fully vaccinated. admits to tobacco smoking, denies street drug. she had alcohol today she is not on home oxygen for COPD Review of Systems Pertinent positives as noted in HPI. All other systems were reviewed and are negative Past Medical History Past Medical History: Hyperlipidemia, Hypertension, Mitral Valve Prolapse (MVP), Renal Disease, Seizure Disorder Additional Past Medical History / Comment(s): PAD ( 2 blocked arteries in the base of her brain-neurologist reports that they are very small and she will lik mateusz have a CVA due to them) , Last seizure was over 3 years ago History of Any Multi-Drug Resistant Organisms: None Reported Past Surgical History: Section, Hysterectomy, Tubal Ligation Additional Past Surgical History / Comment(s): L. kidney removed Past Anesthesia/Blood Transfusion Reactions: No Reported Reaction Past Psychological History: Anxiety, Depression Past Alcohol Use History: None Reported Past Drug Use History: None Reported - Past Family History Father Family Medical History: Unable to Obtain Additional Family Medical History / Comment(s): Pt. Was adopted Medications and Allergies Home Medications Medication Instructions Recorded Confirmed Type Sucralfate 1 gm PO QID 03/24/14 08/30/17 History lamoTRIgine [LaMICtal] 100 mg PO BID 09/09/14 08/30/17 History Aspirin EC [Ecotrin Low Dose] 81 mg PO DAILY 08/30/17 08/30/17 History Ondansetron [Zofran ODT] 8 mg PO QID PRN 08/30/17 08/30/17 History carvediloL [Coreg] 12.5 mg PO BID 08/30/17 08/30/17 History lisinopriL [Zestril] 10 mg PO DAILY 08/30/17 08/30/17 History HYDROcodone/APAP 5-325MG [[place] 1 tab PO Q6HR PRN 3 Days #12 tab 09/03/17 Rx 5-325] Allergies Allergy/AdvReac Type Severity Reaction Status Date / Time sulfamethoxazole Allergy Severe Unknown Verified 08/30/17 14:30 [From Bactrim] rofecoxib [From Vioxx] Allergy Anaphylaxis Verified 08/30/17 14:30 trimethoprim [From Bactrim] Allergy Unknown Verified 08/30/17 14:30 NSAIDS (Non-Steroidal AdvReac Unknown Verified 08/30/17 14:30 Anti-Inflamma Physical Exam Vitals: Vital Signs Temp Pulse Resp BP Pulse Ox 11/14/21 03:26 71 17 109/70 100 11/14/21 01:51 66 95/61 11/14/21 00:37 979 F H 88 15 108/56 98 Intake and Output 11/13/21 11/13/21 11/14/21 14:59 22:59 06:59 Other: Weight 68.039 kg Constitutional: No acute distress, conversant, pleasant Eyes: Anicteric sclerae, moist conjunctiva, Pupils equal round reactive to light ENMT: NC/AT Oropharynx clear, no erythema, or exudates Neck: Supple, FROM, no masses, or JVD No carotid bruits No thyromegaly Lungs: Clear to auscultation Clear to percussion Normal respiratory effort, no accessory muscle use Cardiovascular: Heart regular in rate and rhythm, No murmurs, gallops, or rubs No peripheral edema Abdominal: Soft Nontender, no guarding, rebound or rigidity Abdomen moving with respiration Normoactive bowel sounds No hepatomegaly, No splenomegaly No palpable mass No abdominal wall hernia noted Skin: Normal temperature, tone, texture, turgor No induration No subcutaneous nodules No rash, lesions No ulcers Extremities: patient has non tender palpable L axillary lump 5X5 cm No digital cyanosis No clubbing Pedal pulses intact and symmetrical Radial pulses intact and symmetrical No calf tenderness Psychiatric: Alert and oriented to person, place and time Appropriate affect fair judgement Neuro Muscles Strength 5/5 in all 4 extremities Sensation to light touch grossly present throughout Cranial nerves II-XII grossly intact No focal sensory deficits Lymphatics: no palpable cervical or supraclavicular , or inguinal lymph nodes Results CBC & Chem 7: 11/14/21 01:48 11/14/21 01:48 Labs: Abnormal Lab Results - Last 24 Hours (Table) 11/14/21 11/14/21 Range/Units 01:48 01:48 MCV 100.1 H (80.0-100.0) fL Sodium 135 L (137-145) mmol/L Carbon Dioxide 20 L (22-30) mmol/L Calcium 8.1 L (8.4-10.2) mg/dL AST 79 H (14-36) U/L Total Protein 5.9 L (6.3-8.2) g/dL Assessment and Plan Assessment: atypical chest pain rule out ACS EKG no acute changes CXR no acute pathology trops negative 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
[2021-11-14] MEDS ORDERED: MORPHINE SULFATE 4 MG/ML SYRINGE IVP STA (04:50)
[2021-11-14] MEDS ORDERED: IPRATROPIUM-ALBUTEROL 3 ML NEB INHALATION STA (04:56)
[2021-11-14] MEDS ORDERED: carvediloL 12.5 MG TAB PO SCH (07:30)
[2021-11-14] MEDS ORDERED: IPRATROPIUM-ALBUTEROL 3 ML NEB INHALATION PRN (07:39)
[2021-11-14] MEDS ORDERED: KETOROLAC 15 MG/ML 1 ML VIAL IVP PRN (08:58)
[2021-11-14] MEDS ORDERED: lamoTRIgine 100 MG TAB PO SCH (09:00)
[2021-11-14] MEDS ORDERED: ATORVASTATIN 20 MG TAB PO SCH (09:00)
[2021-11-14] MEDS ORDERED: lisinopriL 10 MG TAB PO SCH (09:00)
[2021-11-14] MEDS ORDERED: ACETAMINOPHEN IV (For NPO) 1,000 MG in EMPTY BAG 1 BAG IVPB STA (09:15)
[2021-11-14] MEDS: HYDROcodone/APAP 5-325MG 1 EACH TAB PO PRN ×3 (09:18→22:39)
[2021-11-14] MEDS: PARoxetine 10 MG TAB PO SCH (09:32)
[2021-11-14] MEDS: ASPIRIN 81 MG PO SCH (09:32)
[2021-11-14] MEDS: HEPARIN SODIUM,PORCINE/PF 5,000 UNIT/0.5 ML SYRINGE SQ SCH ×3 (09:32→22:40)
[2021-11-14] MEDS: PANTOPRAZOLE 40 MG TABLET PO SCH (09:32)
--- NOTE | 2021-11-14 09:38 | P.CRDCN ---
History of Present Illness Consult date: 11/14/21 Consult reason: chest pain History of present illness: This is Howard Peres NP, I'm dictating on behalf of Dr. Mccollum's H&P and A&P The patient was interviewed and examined. HPI: Patient is a pleasant 56-year-old female who initially presented to the hospital with chest pain. Patient states the pains started in August, and has been intermittent since that time. She has recently started seeing a vice president of talent management in [place], who ordered multiple tests for her to have completed, of which she has been unable to do yet. She states that yesterday she started noting central chest pain, with radiation into her neck, with associated nausea, shortness of breath, and dizziness. She does also report that she was at a bonfire drinking last night when the chest pain came on. This is what made her present to the emergency department for evaluation. Initial workup in the emergency department was benign, the patient's EKG demonstrated normal sinus rhythm with no ST or T wave changes and no evidence of acute ischemia. Patient's troponins so far have been negative 2. Patient's blood pressure has remained stable, and her heart rate was good. We will consult him for further evaluation of the chest pain. Patient has a past medical history that includes hyperlipidemia, hypertension, mitral valve prolapse, renal disease, and seizure disorder. At this time the patient reports that she is actively having chest pain. We requested a stat EKG, which demonstrated normal sinus rhythm, and was relatively similar to the initial EKG done in the emergency department. Patient reports she currently has testing set up for an echocardiogram, carotid Dopplers, a nuclear stress test, all with her vice president of talent management in [place]. ROS: [No fever, chills, or rigors] [no cough, phlegm, or expectoration] [no nausea, vomiting, or diarrhea] [no hematuria, dysuria] [Complains of chest pain at this time] [no strokes or seizures] [no skin lesions] EXAMINATION: GENERAL: Well-appearing, well-nourished and in no acute distress. NECK: Supple without JVD or thyromegaly. LUNGS: Breath sounds clear to auscultation bilaterally. Respiration equal and unlabored. No wheezes, rales or rhonchi. HEART: Regular rate and rhythm without murmurs, rubs or gallops. S1 and S2 heard. EXTREMITIES: Normal range of motion, no edema. No clubbing or cyanosis. Peripheral pulses intact and strong. REVIEW OF LABS, ECG & MEDICAL DATA: LABS: White count 8.8, hemoglobin 12.8, platelets 255, sodium 135, potassium 4.4, B1 11, creatinine 0.95, magnesium 1.8, troponin-less than 0.012, less than 0.012 EKG: Normal sinus rhythm, no ST or T wave changes, no evidence of ischemia IMAGING: Chest x-ray dated 11/14/2021 demonstrates no active cardiopulmonary disease, normal heart, no change. VITALS: Pulse 84, respirations 15, blood pressure 117/68, O2 saturation 97% on room air IMPRESSION: Chest pain, likely GI in origin History of hypertension, currently controlled History of renal disease, kidney function currently within normal limits PLAN: After troponin is negative, patient can be discharged from a cardiology standpoint. Patient should continue to follow with her vice president of talent management in [place]. Recommend GI prophylaxis Thank you for the consult and allowing us to participate in the care of this patient. If further recommendations are needed please do not hesitate to reconsult us. Past Medical History Past Medical History: Hyperlipidemia, Hypertension, Mitral Valve Prolapse (MVP), Renal Disease, Seizure Disorder Additional Past Medical History / Comment(s): PAD ( 2 blocked arteries in the base of her brain-neurologist reports that they are very small and she will likely have a CVA due to them) , Last seizure was over 3 years ago History of Any Multi-Drug Resistant Organisms: None Reported Past Surgical History: Section, Hysterectomy, Tubal Ligation Additional Past Surgical History / Comment(s): L. kidney removed Past Anesthesia/Blood Transfusion Reactions: No Reported Reaction Past Psychological History: Anxiety, Depression Past Alcohol Use History: None Reported Past Drug Use History: None Reported - Past Family History Father Family Medical History: Unable to Obtain Additional Family Medical History / Comment(s): Pt. Was adopted Medications and Allergies Home Medications Medication Instructions Recorded Confirmed Type Aspirin EC [Ecotrin Low Dose] 81 mg PO DAILY 08/30/17 11/14/21 History carvediloL [Coreg] 12.5 mg PO BID 08/30/17 11/14/21 History lisinopriL [Zestril] 10 mg PO DAILY 08/30/17 11/14/21 History Fluticasone/Umeclidin/Vilanter 1 puff INHALATION RT-DAILY 11/14/21 11/14/21 History [Trelekali Ellipta 200-62.5-25] Ipratropium-Albuterol Nebulize 3 ml INHALATION RT-QID PRN 11/14/21 11/14/21 History [Duoneb 0.5 mg-3 mg/3 ml Soln] Nitroglycerin Sl Tabs [Nitrostat] 0.4 mg SL Q5M PRN 11/14/21 11/14/21 History Omeprazole [PriLOSEC] 20 mg PO DAILY 11/14/21 11/14/21 History Ondansetron Odt [Zofran Odt] 4 mg PO TID PRN 11/14/21 11/14/21 History PARoxetine HCL [Paxil] 10 mg PO DAILY 11/14/21 11/14/21 History Allergies Allergy/AdvReac Type Severity Reaction Status Date / Time sulfamethoxazole Allergy Severe Unknown Verified 08/30/17 14:30 [From Bactrim] rofecoxib [From Vioxx] Allergy Anaphylaxis Verified 08/30/17 14:30 trimethoprim [From Bactrim] Allergy Unknown Verified 08/30/17 14:30 NSAIDS (Non-Steroidal AdvReac Unknown Verified 08/30/17 14:30 Anti-Inflamma Physical Exam Vitals: Vital Signs Temp Pulse Resp BP Pulse Ox 11/14/21 05:33 84 11/14/21 05:20 85 11/14/21 04:50 77 15 117/68 97 11/14/21 03:26 71 17 109/70 100 11/14/21 01:51 66 95/61 11/14/21 00:37 979 F H 88 15 108/56 98 Intake and Output 11/13/21 11/14/21 11/14/21 22:59 06:59 14:59 Other: Weight 68.039 kg Results 11/14/21 01:48 11/14/21 01:48 Cardiac Enzymes 11/14/21 11/14/21 11/14/21 Range/Units 01:48 01:48 06:48 AST 79 H (14-36) U/L Troponin I <0.012 <0.012 (0.000-0.034) ng/mL Coagulation 11/14/21 Range/Units 01:48 PT 10.5 (9.0-12.0) sec APTT 22.6 (22.0-30.0) sec CBC 11/14/21 Range/Units 01:48 WBC 8.8 (3.8-10.6) k/uL RBC 4.02 (3.80-5.40) m/uL Hgb 12.8 (11.4-16.0) gm/dL Hct 40.2 (34.0-46.0) % Plt Count 255 (150-450) k/uL Comprehensive Metabolic Panel 11/14/21 Range/Units 01:48 Sodium 135 L (137-145) mmol/L Potassium 4.4 (3.5-5.1) mmol/L Chloride 104 (98-107) mmol/L Carbon Dioxide 20 L (22-30) mmol/L BUN 11 (7-17) mg/dL Creatinine 0.95 (0.52-1.04) mg/dL Glucose 90 (74-99) mg/dL Calcium 8.1 L (8.4-10.2) mg/dL AST 79 H (14-36) U/L ALT 23 (4-34) U/L Alkaline Phosphatase 94 (38-126) U/L Total Protein 5.9 L (6.3-8.2) g/dL Albumin 3.5 (3.5-5.0) g/dL Current Medications Generic Name Dose Route Start Last Admin Trade Name Freq PRN Reason Stop Dose Admin Hydrocodone Bitart/Acetaminophen 1 each 11/14/21 08:59 11/14/21 09:18 Hydrocodone/Apap 5-325mg 1 Each Tab PO 1 each Q6HR PRN Administration Pain Albuterol/Ipratropium 3 ml 11/14/21 07:39 Ipratropium-Albuterol 3 Ml Neb INHALATION RT-QID PRN Shortness Of Breath Aspirin 81 mg 11/14/21 09:00 Aspirin 81 Mg PO DAILY [facility] Atorvastatin Calcium 20 mg 11/14/21 09:00 Atorvastatin 20 Mg Tab PO DAILY [facility] Budesonide/Formoterol Fumarate 2 puff 11/14/21 08:00 Symbicort 80-4.5 Mcg Inhaler INHALATION RT-BID [facility] Carvedilol 12.5 mg 11/14/21 07:30 Carvedilol 12.5 Mg Tab PO BID-W/MEALS [facility] Heparin Sodium (Porcine) 5,000 unit 11/14/21 08:00 Heparin Sodium,Porcine/Pf 5,000 Unit/0.5 Ml Syringe SQ Q8HR [facility] Acetaminophen 1,000 mg/ IV 100 mls @ 400 mls/hr 11/14/21 09:15 Solution IVPB 11/14/21 09:29 ONCE STA Ipratropium [place] 0.5 mg 11/14/21 08:00 Ipratropium 0.5 Mg/2.5 Ml Nebu INHALATION RT-QID [facility] Lisinopril 10 mg 11/14/21 09:00 Lisinopril 10 Mg Tab PO DAILY [facility] Naloxone HCl 0.2 mg 11/14/21 03:55 Naloxone 0.4 Mg/Ml 1 Ml Vial IV Q2M PRN Opioid Reversal Pantoprazole Sodium 40 mg 11/14/21 09:00 Pantoprazole 40 Mg Tablet PO DAILY@0730 [facility] Paroxetine HCl 10 mg 11/14/21 09:00 Paroxetine 10 Mg Tab PO DAILY [facility] Intake and Output 11/13/21 11/14/21 11/14/21 22:59 06:59 14:59 Other: Weight 68.039 kg 11/14/21 01:48 11/14/21 01:48
[2021-11-14] MEDS ORDERED: ONDANSETRON 4 MG/2 ML VIAL IVP PRN (10:06)
[2021-11-14] MEDS ORDERED: SODIUM CHLORIDE 0.9% 1,000 ML IV ONE (10:58)
[2021-11-14 11:25] LABS: Glucose,Whole Blood 70 mg/dL (70-110)
--- NOTE | 2021-11-14 11:32 | P.PN ---
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 Patient had outpatient evalution [facility] inside sales coordinator in [facility] and is scheduled fo stress, echo, and caortid dopplers. She is also scheduled for an US of her left axilla for a lump. She was noted to have elevated liver enzymes and is due to have a liver US. On arrival to the ED her vital signs were within normal limits. Laboratory analysis was essentially unremarkable. Troponins were negative. EKG showed normal sinus rhythm with T-wave inversion in lead 3. She was placed in observation. The remainders of her troponins were negative. She was cleared by cardiology. She developed hypotension that was symptomatic at 83/53. She reports that her typical blood pressures are 114-125 systolic. Currently she is feeling very fatigued as if she could fall asleep. She reports lightheadedness, and some dizziness. She states that her chest pain is manageable at this time and is in the center of her chest. She is currently not feeling short of breath. She denies any unusual recent activities such as heavy bending, lifting, or starting a work out regimen. General: nontoxic, no distress, appears at stated age Derm: warm, dry Head: atraumatic, normocephalic, symmetric Eyes: EOMI, no lid lag, anicteric sclera Mouth: no lip lesion, mucus membranes moist Cardiovascular: S1S2 reg, no murmur, positive posterior tibial pulse bilateral, Lungs: CTA bilateral, no rhonchi, no rales , no accessory muscle use Abdominal: soft, nontender to palpation, no guarding, no appreciable organomegaly Ext: no gross muscle atrophy, no edema, no contractures Neuro: CN II-XI grossly intact, no focal neuro deficits Psych: Alert, oriented, appropriate affect Assessment/plan: Hypotension -Undetermined etiology -1 L fluid bolus -Follow vital signs -Check echocardiogram in a.m. -Check CTA chest to rule out possible pulmonary embolism given chest pain and hypotension - orthostatic vitals once BP stable Chest pain -Has been seen by cardiology and they feel this is not of cardiac etiology -Troponins negative -Continue with aspirin History of HTN - Hold beta diogo and NINA inhibitor - Follow blood pressures DVT prophylaxis: SCDs Discussed with: patient, nursing Anticipated discharge: in AM Anticipated discharge place: home A total of 35 minutes was spent on the care of this complex patient more than 50% of the time was spent in counseling and care coordination. Objective - Vital Signs Vital signs: Vital Signs Temp 97 F L 11/14/21 07:00 Pulse 84 11/14/21 05:33 Resp 16 11/14/21 07:00 BP 87/50 11/14/21 10:42 Pulse Ox 97 11/14/21 10:42 FiO2 Intake & Output 11/13/21 11/14/21 11/14/21 18:59 06:59 18:59 Weight 68.039 kg - Labs CBC & Chem 7: 11/14/21 01:48 11/14/21 01:48 Labs: Abnormal Lab Results - Last 24 Hours (Table) 11/14/21 11/14/21 Range/Units 01:48 01:48 MCV 100.1 H (80.0-100.0) fL Sodium 135 L (137-145) mmol/L Carbon Dioxide 20 L (22-30) mmol/L Calcium 8.1 L (8.4-10.2) mg/dL AST 79 H (14-36) U/L Total Protein 5.9 L (6.3-8.2) g/dL
--- NOTE | 2021-11-14 12:09 | CT ---
EXAMINATION TYPE: CT angio chest CT DLP: 451.8 mGycm, Automated exposure control for dose reduction was used. DATE OF EXAM: 11/14/2021 11:44 AM COMPARISON: Chest radiograph from same day. CLINICAL INDICATION:Female, 56 years old with history of Pulmonary embolism; chest pain. poss PE TECHNIQUE/CONTRAST: CTA scan of the thorax is performed with IV Contrast, patient injected with 66 mL of Isovue 370, pulm onary embolism protocol. MIP images are created and reviewed. FINDINGS: Pulmonary Artery: There is no evidence for a filling defect within the pulmonary vasculature to sugge st acute pulmonary embolism. The pulmonary artery is of normal size. Reflux of contrast into the IVC . Lungs/Pleura: No pneumothorax or pleural effusion. Bibasilar dependent subsegmental atelectasis. No f ocal consolidation. Airway: Large airways are patent. Heart: Mildly prominent in size. No pericardial effusion. Vasculature: No evidence of aortic aneurysm. Mediastinum: No gross evidence of adenopathy. Musculoskeletal: No acute osseous abnormalities. No aggressive osseous lesions. Soft Tissues: Unremarkable. Lower neck: No significant findings. Upper Abdomen: Small hiatal hernia. Postcholecystectomy. Left kidney surgically absent. No suspicious soft tissue within the visualized left nephrectomy bed. IMPRESSION: 1. No evidence of pulmonary embolism or acute thoracic process. 2. Small hiatal hernia.
[2021-11-14] MEDS: IPRATROPIUM 0.5 MG/2.5 ML NEBU INHALATION SCH ×4 (12:41→21:05)
[2021-11-14] MEDS: SYMBICORT 80-4.5 MCG INHALER INHALATION SCH ×3 (12:42→21:18)
[2021-11-14] MEDS: NICOTINE 21MG/24HR PATCH TRANSDERM SCH (17:25)
[2021-11-14] MEDS: SODIUM CHLORIDE 0.9% 1,000 ML IV SCH (17:26)
[2021-11-14 18:46] LABS: LDL Cholesterol,Calculated 85.9 mg/dL (0.0-131.0)
[2021-11-15] MEDS: SODIUM CHLORIDE 0.9% 1,000 ML IV SCH (00:49)
[2021-11-15] MEDS: SYMBICORT 80-4.5 MCG INHALER INHALATION SCH ×2 (07:32→19:55)
[2021-11-15] MEDS: IPRATROPIUM 0.5 MG/2.5 ML NEBU INHALATION SCH ×3 (07:32→19:55)
[2021-11-15] MEDS: ASPIRIN 81 MG PO SCH (08:25)
[2021-11-15] MEDS: PARoxetine 10 MG TAB PO SCH (08:25)
[2021-11-15] MEDS: PANTOPRAZOLE 40 MG TABLET PO SCH (08:25)
[2021-11-15] MEDS: HEPARIN SODIUM,PORCINE/PF 5,000 UNIT/0.5 ML SYRINGE SQ SCH (08:26)
[2021-11-15] MEDS: NICOTINE 21MG/24HR PATCH TRANSDERM SCH (08:26)
[2021-11-15] MEDS: HYDROcodone/APAP 5-325MG 1 EACH TAB PO PRN (08:34)
[2021-11-15 09:14] LABS: Basophils # (A) 0.02 X 10*3/uL (0.00-0.10); Basophils % (A) 0.3 %; Eosinophils # (A) 0.22 X 10*3/uL (0.04-0.35); Eosinophils % (A) 3.7 %; HCT 41.2 % (37.2-46.3); HGB 13.4 g/dL (12.0-15.0); Immature Grans, Automated 0.2 %; Lymphocytes # (A) 2.22 X 10*3/uL (0.90-5.00); Lymphocytes % (A) 37.1 %; MCH 32.4 pg (27.0-32.0); MCHC 32.5 g/dL (32.0-37.0); MCV 99.5 fL (80.0-97.0); Mean Platelet Volume 11.1 fL (9.5-12.2); Monocytes # (A) 0.54 X 10*3/uL (0.20-1.00); NRBC Per 100 WBC 0 /100 WBCS (0.0-0.0); Neutrophils # (A) 2.97 X 10*3/uL (1.80-7.70); Neutrophils % (A) 49.7 %; Platelet Count 237 X 10*3/uL (140-440); RBC 4.14 X 10*6/uL (4.10-5.20); RDW 14.5 % (11.5-14.5); WBC 5.98 X 10*3/uL (4.50-10.00)
[2021-11-15 09:34] LABS: Anion Gap 9.3 mmol/L (10.00-18.00); BUN/Creat Ratio 13.33 Ratio (12.00-20.00); Calcium 8.4 mg/dL (8.7-10.3); Carbon Dioxide 23.7 mmol/L (20.0-27.5); Non-African American GFR(CKD) 72.5 (60.0-200.0); Potassium 4.4 mmol/L (3.5-5.5)
[2021-11-15] MEDS ORDERED: carvediloL 6.25 MG TAB PO SCH (10:00)
[2021-11-15 11:21] VITALS: BP 129/81; RESP 13; TEMP 98
[2021-11-15 11:24] VITALS: PULSE 70
--- NOTE | 2021-11-15 19:49 | P.DS ---
Providers Date of admission: 11/14/21 03:55 Expected date of discharge: 11/15/21 Attending physician: Laurel Stubbs MD Consults: 11/14/21 03:55 Consult Physician Routine Consulting Provider: [facility] Consult Reason/Comments: chest pain Do you want consulting provider notified?: Yes Primary care physician: [facility] Hospital Course: Discharge Diagnosis: Chest pain, acute coronary event ruled out Hypotension, improved status post 1 L bolus and decreasing of Coreg down to 6.25 mg and lisinopril down to 5 mg. BP stable 129/81 upon discharge. History of hypertension History of hyperlipidemia Seizure disorder History of left nephrectomy Hospital Course: Patient is a very pleasant 56-year-old female with a past medical history of hypertension, hyperlipidemia, seizure disorder, and left nephrectomy. She presented to the emergency department on 11/14/21 with a chief complaint of chest pain. Patient underwent full evaluation. EKG showing normal sinus rhythm at 61 bpm with no noted T-wave or ST abnormalities showing no signs of acute ischemia. Chest x-ray negative for acute cardiopulmonary process. CBC, coags, and CMP completed and unremarkable with the exception of mildly elevated AST of 79. Serum alcohol was 158. Troponin was negative at less than 0.012. Patient was admitted under our services with consultation to cardiology. Troponins were trended all negative at less than 0.0123 draws. Lipid profile unremarkable with the exception of elevated triglycerides of 153. TSH 4.020. During hospitalization patient was found to have developed hypotension and was symptomatic with a blood pressure of 83/53. Changes were made to blood pressure medication regimen with decreasing of Coreg and lisinopril. Vital signs stable. BP 129/81 and patient is medically stable for discharge at this time. CTA was completed negative for acute pulmonary emboli. Echocardiogram was completed and reviewed by cardiology, recommending patient follow-up outpatient with no further cardiac recommendations at this time. Patient is medically stable and had long discussion regarding monitoring blood pressure closely at home twice daily and documenting in a daily log to bring with her to her next doctor's appointment. Patient medically stable for discharge and to follow up outpatient with PCP in 1-2 days and with cardiology in 1 week. Patient seen and examined at bedside. Vital signs reviewed and stable. General: Nontoxic, no distress and appears stated age. Derm: Skin warm and dry, normal coloration for ethnicity. Head: Atraumatic, normocephalic and symmetric. Eyes: EOMs intact, no lid lag, and anicteric sclera Mouth: no lip lesions, mucus membranes moist Cardiovascular: regular rate and rhythm with normal S1S2, no murmur, positive posterior tibial pulses bilaterally, and cap refill < 2 seconds. Lungs: Respirations even, regular, and unlabored on room air. Lungs CTA bilaterally, no rhonchi, no rales, no wheezing, and no accessory muscle usage. Abdominal: soft, nontender to palpation, no guarding, no appreciable organomegaly Ext: ROM intact. No gross muscle atrophy, no edema, no contractures Neuro: Speech clear, face symmetrical and CN II-XII grossly intact with no noted focal neuro deficits Psych: Alert and oriented to person, place, time, and situation. Appropriate and pleasant affect. A total of 35 minutes of time were spent preparing this complex discharge summary. Pt was discharged on 11/15/21 at 4:37 PM. I reviewed the documentation as provided by the KUNAL above, who is the original author of this note. I agree with the documented assessment and plan, with the following changes: none Patient Condition at Discharge: Stable Plan - Discharge Summary New Discharge Prescriptions: Continue Aspirin EC [Ecotrin Low Dose] 81 mg PO DAILY Ondansetron Odt [Zofran ODT] 4 mg PO TID PRN PRN Reason: Nausea And Vomiting PARoxetine HCL [Paxil] 10 mg PO DAILY Omeprazole [PriLOSEC] 20 mg PO DAILY Nitroglycerin Sl Tabs [Nitrostat] 0.4 mg SL Q5M PRN PRN Reason: Chest Pain Ipratropium-Albuterol Nebulize [Duoneb 0.5 mg-3 mg/3 ml Soln] 3 ml INHALATION RT-QID PRN PRN Reason: Shortness Of Breath Fluticasone/Umeclidin/Vilanter [Trelegy Ellipta 200-62.5-25] 1 puff INHALATION RT-DAILY Changed carvediloL [Coreg] 6.25 mg PO BID #0 lisinopriL [Zestril] 5 mg PO DAILY #0 Discharge Medication List Aspirin EC [Ecotrin Low Dose] 81 mg PO DAILY 08/30/17 [History] Fluticasone/Umeclidin/Vilanter [Trelegy Ellipta 200-62.5-25] 1 puff INHALATION RT-DAILY 11/14/21 [History] Ipratropium-Albuterol Nebulize [Duoneb 0.5 mg-3 mg/3 ml Soln] 3 ml INHALATION RT-QID PRN 11/14/21 [History] Nitroglycerin Sl Tabs [Nitrostat] 0.4 mg SL Q5M PRN 11/14/21 [History] Omeprazole [PriLOSEC] 20 mg PO DAILY 11/14/21 [History] Ondansetron Odt [Zofran ODT] 4 mg PO TID PRN 11/14/21 [History] PARoxetine HCL [Paxil] 10 mg PO DAILY 11/14/21 [History] carvediloL [Coreg] 6.25 mg PO BID #0 11/15/21 [Rx] lisinopriL [Zestril] 5 mg PO DAILY #0 11/15/21 [Rx] Follow up Appointment(s)/Referral(s): Nadiya Nieto MD [STAFF PHYSICIAN] - 1 Week Ike Fitzpatrick MD [Primary Care Provider] - 1-2 days Activity/Diet/Wound Care/Special Instructions: Activity: As tolerated. Take breaks as needed. Diet: Heart healthy and carb consistent diet. Avoid salts, or foods with hidden salts such as canned or boxed foods and frozen dinners. Extra salt makes your heart work harder and traps the fluid in your body for longer. Special Instructions: Take all of your medications as directed and remember to keep all of your doctor's appointments and follow-up as needed. Remember, as we discussed continue to monitor blood pressure twice daily once in the morning and once in the evening and document these findings in a daily log/Journal to bring with you to your next doctor's appointment. Thank you for allowing us to participate in your care, it was truly a pleasure having you for our patient!!! Discharge Disposition: HOME SELF-CARE
[2021-11-16] MEDS ORDERED: lisinopriL 5 MG TAB PO SCH (09:00)
--- NOTE | 2021-11-16 09:31 | CA ---
Transthoracic Echo Report Name: Amarilis Cedillo Age: 56 Gender: F : 1965 Exam Date: 11/15/2021 10:47 Exam Location: [place] [facility] Ht (in): 65 Wt (lb): 150 Ordering Physician: Barrie Nascimento MD Attending/Referring Phys: Icer Machine Operator Alma El RDCS Procedure CPT: Indications: Chest Pain Cardiac Hx: Technical Quality: Fair Contrast 1: Total Dose (mL): Contrast 2: Total Dose (mL): MEASUREMENTS (Male / Female) Normal Values 2D ECHO LV Diastolic Diameter PLAX 4.4 cm 4.2 - 5.9 / 3.9 - 5.3 cm LV Systolic Diameter PLAX 2.6 cm IVS Diastolic Thickness 1.4 cm 0.6 - 1.0 / 0.6 - 0.9 cm LVPW Diastolic Thickness 1.3 cm 0.6 - 1.0 / 0.6 - 0.9 cm LV Relative Wall Thickness 0.6 RV Internal Dim ED PLAX 3.5 cm LA Volume 55.3 cm??? 18 - 58 / 22 - 52 cm??? M-MODE Aortic Root Diameter MM 2.9 cm LA Systolic Diameter MM 4.6 cm LA Ao Ratio MM 1.6 AV Cusp Separation MM 2.0 cm DOPPLER AV Peak Velocity 176.6 cm/s AV Peak Gradient 12.5 mmHg LVOT Peak Velocity 99.0 cm/s LVOT Peak Gradient 3.9 mmHg MV Area PHT 3.8 cm??? Mitral E Point Velocity 110.8 cm/s Mitral A Point Velocity 83.2 cm/s Mitral E to A Ratio 1.3 MV Deceleration Time 199.5 ms MV E' Velocity 8.5 cm/s Mitral E to MV E' Ratio 13.0 TR Peak Velocity 257.5 cm/s TR Peak Gradient 26.5 mmHg Right Ventricular Systolic Press 31.5 mmHg FINDINGS Left Ventricle Mildly increased left ventricular wall thickness. Normal left ventricular systolic function with no obvious regional wall motion abnormalities. Left ventricular ejection fraction is estimated at 55-60 %. Right Ventricle Normal right ventricular size. Right ventricular systolic pressure within normal limits. Right Atrium Normal right atrial size. Left Atrium Mildly increased left atrial volume. No evidence for an atrial septal defect. Mitral Valve Structurally normal mitral valve. Mild mitral annular calcification. Mild mitral regurgitation. Aortic Valve Trileaflet aortic valve. No aortic valve stenosis or regurgitation. Tricuspid Valve Structurally normal tricuspid valve. Mild tricuspid regurgitation. Pulmonic Valve Structurally normal pulmonic valve. Trace pulmonic regurgitation. Pericardium No pericardial effusion. Aorta Normal size aortic root and proximal ascending aorta. CONCLUSIONS Normal LV size and systolic function. Mild concentric LVH. Mild mitral and tricuspid insufficiency and no pulmonary hypertension. No pericardial effusion Previewed by: Dr. Nadiya Nieto MD (Electronically Signed) Final Date: 16 November 2021 09:30
== END 2021-11-15 22:00 | disposition home or self-care (01) ==
LOC: EC 00:30 → 6NMEDSUR 03:55
PROVIDERS: ADMIT Internal Medicine; ATTEND Internal Medicine
DX: R07.89 Other chest pain (principal); E87.1 Hypo-osmolality and hyponatremia; I95.9 Hypotension, unspecified; F10.129 Alcohol abuse with intoxication, unspecified; J44.9 Chronic obstructive pulmonary disease, unspecified; I10 Essential (primary) hypertension; R22.2 Localized swelling, mass and lump, trunk; I34.1 Nonrheumatic mitral (valve) prolapse; I73.9 Peripheral vascular disease, unspecified; E78.5 Hyperlipidemia, unspecified; G40.909 Epilepsy, unspecified, not intractable, without status epilepticus; R74.01 Elevation of levels of liver transaminase levels; G89.29 Other chronic pain; Y90.6 Blood alcohol level of 120-199 mg/100 ml; E78.1 Pure hyperglyceridemia; K44.9 Diaphragmatic hernia without obstruction or gangrene; F32.A Depression, unspecified; F41.9 Anxiety disorder, unspecified; Z79.51 Long term (current) use of inhaled steroids; Z79.82 Long term (current) use of aspirin; Z79.899 Other long term (current) drug therapy; Z88.1 Allergy status to other antibiotic agents; Z88.2 Allergy status to sulfonamides; Z88.6 Allergy status to analgesic agent; Z90.710 Acquired absence of both cervix and uterus; Z98.51 Tubal ligation status; Z98.891 History of uterine scar from previous surgery; Z90.5 Acquired absence of kidney; Z86.16 Personal history of COVID-19; Z86.19 Personal history of other infectious and parasitic diseases
CPT/HCPCS: 96361 ×2; 96372 ×3; 96376; 96374; 96375; 99285; 36415; 94640 ×3; 94760; 93005; 93306; 80061; 80053; 80048; 84443; 82533; 83735; 84484; 85025 ×2; 85610; 85730; 80320; 83036; 71046; 71275; G0378 ×2; S4990 ×2; J2270; J2405; J3010; J0131; Q9967; J1644 ×2

== ENCOUNTER 2021-12-29 19:39 | Emergency (ER) | payer BC ==
[2021-12-29 20:02] VITALS: TEMP 98.2
[2021-12-29] MEDS ORDERED: PANTOPRAZOLE 40 MG/10 ML VIAL IVP STA (21:40)
[2021-12-29] MEDS ORDERED: SODIUM CHLORIDE 0.9% 500 ML 500 ML IV STA (21:40)
[2021-12-29] MEDS ORDERED: ONDANSETRON 4 MG/2 ML VIAL IVP STA (21:40)
[2021-12-29] MEDS ORDERED: ACETAMINOPHEN TAB 500 MG TAB PO STA (21:42)
[2021-12-29 22:17] LABS: Appearance,Urine Clear (Clear); Bilirubin,Urine Negative (Negative); Blood,Urine Negative (Negative); Color,Urine Colorless; Glucose,Urine (UA) Negative (Negative); Ketones,Urine Negative (Negative); Leukocyte Esterase,Urine Negative (Negative); Nitrite,Urine Negative (Negative); PH, Urine 5.5 (5.0-8.0); Protein,Urine Negative (Negative); Specific Gravity,Urine 1.006 (1.001-1.035); Urobilinogen,Urine <2.0 mg/dL (<2.0)
[2021-12-29 22:29] LABS: Basophils % (A) 1 %; Eosinophils # (A) 0.2 k/uL (0-0.7); Eosinophils % (A) 2 %; HCT 42.8 % (34.0-46.0); HGB 14.4 gm/dL (11.4-16.0); Lymphocytes # (A) 2.5 k/uL (1.0-4.8); Lymphocytes % (A) 29 %; MCH 32.8 pg (25.0-35.0); MCHC 33.7 g/dL (31.0-37.0); MCV 97.4 fL (80.0-100.0); Mean Platelet Volume 8.1; Monocytes # (A) 0.5 k/uL (0-1.0); Monocytes % (A) 6 %; Neutrophils % (A) 60 %; Platelet Count 277 k/uL (150-450); RDW 14.1 % (11.5-15.5); WBC 8.4 k/uL (3.8-10.6)
--- NOTE | 2021-12-29 22:43 | XR ---
EXAMINATION TYPE: XR chest 2V DATE OF EXAM: 12/29/2021 COMPARISON: 11/14/2021 HISTORY: Chest pain TECHNIQUE: FINDINGS: Heart and mediastinum are normal. Lungs are clear. Diaphragm is normal. Bony thorax is inta ct no pleural effusion. IMPRESSION: No active cardiopulmonary disease. Normal heart. No change.
--- NOTE | 2021-12-29 22:45 | XR ---
EXAMINATION TYPE: XR KUB DATE OF EXAM: 12/29/2021 COMPARISON: 09/09/2014 HISTORY: Abdominal pain TECHNIQUE: 2 views FINDINGS: 2 views upright show no sign of intestinal obstruction or pneumoperitoneum. Fecal pattern i s normal. No evidence of a mass. There are clips from cholecystectomy. There are surgical clips left upper quadrant. No pleural effusion. No calcification seen over the kidneys. IMPRESSION: Nonacute abdomen. No adverse change compared to old exam. Previous surgery.
[2021-12-29 22:49] LABS: ALT 23 U/L (4-34); AST 30 U/L (14-36); African American GFR (CKD) >90 (>60 ml/min/1.73 sqM); Albumin 4.9 g/dL (3.5-5.0); Alkaline Phosphatase 130 U/L (38-126); Amylase 108 U/L (30-110); Anion Gap 12 mmol/L; Blood Urea Nitrogen 12 mg/dL (7-17); Calcium 10.1 mg/dL (8.4-10.2); Carbon Dioxide 22 mmol/L (22-30); Chloride 106 mmol/L (98-107); Glucose 87 mg/dL (74-99); Lipase 244 U/L (23-300); Non-African American GFR(CKD) 84 (>60 ml/min/1.73 sqM); Potassium 4.2 mmol/L (3.5-5.1); Sodium 140 mmol/L (137-145); Total Bilirubin 0.6 mg/dL (0.2-1.3); Total Protein 7.8 g/dL (6.3-8.2)
--- NOTE | 2021-12-29 22:57 | ED ---
General Adult HPI - General Chief complaint: Abdominal Pain Stated complaint: Lumps on Head Time Seen by Provider: 12/29/21 21:24 Source: patient Mode of arrival: EMS Limitations: no limitations - History of Present Illness Initial comments: Patient is a 56-year-old female who presents emergency Department with multiple nonspecific complaints. She has a history of multiple intra-abdominal surgeries including cholecystectomy, left nephrectomy, hysterectomy. Patient does have a history of diverticulitis, kidney disease, angina, hypertension. States for the last week she has been feeling somewhat unwell. His generalized joint pain. Also complains of abdominal bloating. Still passing gas. Normal bowel movements. Nausea but no emesis. No current nausea. Denies chest pain or shortness of breath. Denies fevers or chills. Does endorse generalized joint pain as well as intermittent headaches that her typical headaches for the patient. Also states she feels like her face is swollen. Is uncertain what is causing her symptoms. Presents emergency department for further evaluation at this time. Has been unable to follow up with her primary care physician. No known sick Contacts. No fevers. Triage note states lumps on her head, however patient is complaining of swelling to her face not lumps on her head. No deep difficulty swallowing. No intraoral swelling. No known ALLERGIC reaction. - Related Data Home Medications Medication Instructions Recorded Confirmed Aspirin EC [Ecotrin Low Dose] 81 mg PO DAILY 08/30/17 11/14/21 Fluticasone/Umeclidin/Vilanter 1 puff INHALATION RT-DAILY 11/14/21 11/14/21 [Trelegy Ellipta 200-62.5-25] Ipratropium-Albuterol Nebulize 3 ml INHALATION RT-QID PRN 11/14/21 11/14/21 [Duoneb 0.5 mg-3 mg/3 ml Soln] Nitroglycerin Sl Tabs [Nitrostat] 0.4 mg SL Q5M PRN 11/14/21 11/14/21 Omeprazole [PriLOSEC] 20 mg PO DAILY 11/14/21 11/14/21 Ondansetron Odt [Zofran ODT] 4 mg PO TID PRN 11/14/21 11/14/21 PARoxetine HCL [Paxil] 10 mg PO DAILY 11/14/21 11/14/21 Previous Rx's Medication Instructions Recorded carvediloL [Coreg] 6.25 mg PO BID #0 11/15/21 lisinopriL [Zestril] 5 mg PO DAILY #0 11/15/21 Docusate [Colace] 100 mg PO DAILY 7 Days #7 capsule 12/30/21 Allergies Allergy/AdvReac Type Severity Reaction Status Date / Time sulfamethoxazole Allergy Severe Unknown Verified 08/30/17 14:30 [From Bactrim] rofecoxib [From Vioxx] Allergy Anaphylaxis Verified 08/30/17 14:30 trimethoprim [From Bactrim] Allergy Unknown Verified 08/30/17 14:30 NSAIDS (Non-Steroidal AdvReac Unknown Verified 08/30/17 14:30 Anti-Inflamma Review of Systems ROS Statement: Those systems with pertinent positive or pertinent negative responses have been documented in the HPI. Review of Systems: CONST: Denies fever EYES: Denies blurry vision ENT: Denies nasal congestion C/V: Denies Chest pain RESP: Denies shortness of breath GI: Denies abdominal pain : Denies dysuria SKIN: Denies rash. MSK: Endorses generalized joint pain. NEURO: Denies headache ROS Other: All systems not noted in ROS Statement are negative. Past Medical History Past Medical History: Hyperlipidemia, Hypertension, Mitral Valve Prolapse (MVP), Renal Disease, Seizure Disorder Additional Past Medical History / Comment(s): PAD ( 2 blocked arteries in the base of her brain-neurologist reports that they are very small and she will likely have a CVA due to them) , Last seizure was over 3 years ago History of Any Multi-Drug Resistant Organisms: None Reported Past Surgical History: Section, Hysterectomy, Tubal Ligation Additional Past Surgical History / Comment(s): L. kidney removed Past Anesthesia/Blood Transfusion Reactions: No Reported Reaction Past Psychological History: Anxiety, Depression Past Alcohol Use History: None Reported Past Drug Use History: None Reported - Past Family History Father Family Medical History: Unable to Obtain Additional Family Medical History / Comment(s): Pt. Was adopted General Exam - General Exam Comments Initial Comments: General: Appears in no acute distress. HEAD: Normal with no signs of head trauma. EYES: PERRLA, EOMI, conjunctiva normal, no discharge. ENT: Hearing grossly intact, normal oropharynx. This does not appear to be swollen. RESPIRATORY: Clear breath sounds bilaterally. No wheezes, rales, or rhonchi. No respiratory distress. No hypoxia. C/V: Regular rate and rhythm. S1 and S2 auscultated, peripheral pulses 2+ and intact throughout ABD: Abd is soft, nontender, nondistended EXT: Normal range of motion, no obvious deformity SKIN: No rashes or lesions observed on exposed skin. NEURO: Alert and oriented x 4. Cranial nerves II-XII intact. No focal sensory or strength deficits. Limitations: no limitations Course Vital Signs 12/29/21 12/29/21 12/30/21 19:57 22:10 00:04 Temperature 98.2 F Pulse Rate 90 74 Respiratory 16 18 16 Rate Blood Pressure 144/84 140/85 O2 Sat by Pulse 98 99 Oximetry Medical Decision Making - Medical Decision Making Based on the patient's presentation and physical exam, she presents with multiple nonspecific complaints that may be related to a viral type syndrome. I did recommend we obtain Covid and flu swabs in addition to basic laboratory studies, chest x-ray, abdominal x-ray. She was in agreement with this plan. She will be given Zofran, Protonix, IV fluids and Tylenol. Patient was in agreement with this plan. She'll be subsequently reevaluated. Vital signs within acceptable limits. EKG shows no signs of acute ischemia, chronic changes are seen. Chest x-ray shows no acute cardio, process. KUB x-ray reveals no acute process. Evidence of prior cholecystectomy.Laboratory studies are remarkable for normal renal function. She is Covid including negative. Remainder the labs are unremarkable and within acceptable limits. At this time I discussed the findings with the patient. She is still complaining of mild pain. She'll be given morphine. Due to the abdominal discomfort as her primary complaint is a history of diverticulitis, we both agreed to obtain a CT abdomen and pelvis at this time. She was in agreement this plan. CT abdomen and pelvis was obtained and revealed no acute findings except for moderate quantity of stool without bowel obstruction.There was a delay in obtaining CT read, as our PAX system went down. Stat rad was notified and eventually read her CT. We discussed the CT imaging results. The patient may have mild constipation. She'll be discharged home on a stool softener. She was in agreement this plan. We'll follow up with her PCP. She is feeling improved at this time after additional analgesic medications. Vital signs remained within acceptable limits. I will provide the patient with a prescription for stool softener. I instructed the patient to follow up with their PCP in the next 1-3 days. I explained that the patient should return to the emergency department if they experience any worsening symptoms. Strict return precautions were discussed with the patient. The patient expressed understanding of these instructions. I answered all questions that the patient had. The patient was discharged home in good condi tion with their prescriptions and follow up information. - Lab Data Result diagrams: 12/29/21 22:06 12/29/21 22:06 Lab Results 12/29/21 12/29/21 12/29/21 Range/Units 22:06 22:06 22:06 WBC 8.4 (3.8-10.6) k/uL RBC 4.40 (3.80-5.40) m/uL Hgb 14.4 (11.4-16.0) gm/dL Hct 42.8 (34.0-46.0) % MCV 97.4 (80.0-100.0) fL MCH 32.8 (25.0-35.0) pg MCHC 33.7 (31.0-37.0) g/dL RDW 14.1 (11.5-15.5) % Plt Count 277 (150-450) k/uL MPV 8.1 Neutrophils % 60 % Lymphocytes % 29 % Monocytes % 6 % Eosinophils % 2 % Basophils % 1 % Neutrophils # 5.0 (1.3-7.7) k/uL Lymphocytes # 2.5 (1.0-4.8) k/uL Monocytes # 0.5 (0-1.0) k/uL Eosinophils # 0.2 (0-0.7) k/uL Basophils # 0.0 (0-0.2) k/uL PT 10.7 (9.0-12.0) sec INR 1.0 (<1.2) APTT 23.7 (22.0-30.0) sec Sodium (137-145) mmol/L Potassium (3.5-5.1) mmol/L Chloride (98-107) mmol/L Carbon Dioxide (22-30) mmol/L Anion Gap mmol/L BUN (7-17) mg/dL Creatinine (0.52-1.04) mg/dL Est GFR (CKD-EPI)AfAm (>60 ml/min/1.73 sqM) Est GFR (CKD-EPI)NonAf (>60 ml/min/1.73 sqM) Glucose (74-99) mg/dL Calcium (8.4-10.2) mg/dL Total Bilirubin (0.2-1.3) mg/dL AST (14-36) U/L ALT (4-34) U/L Alkaline Phosphatase (38-126) U/L Total Protein (6.3-8.2) g/dL Albumin (3.5-5.0) g/dL Amylase (30-110) U/L Lipase (23-300) U/L Urine Color Colorless Urine Appearance Clear (Clear) Urine pH 5.5 (5.0-8.0) Ur Specific [place] 1.006 (1.001-1.035) Urine Protein Negative (Negative) Urine Glucose (UA) Negative (Negative) Urine Ketones Negative (Negative) Urine Blood Negative (Negative) Urine Nitrite Negative (Negative) Urine Bilirubin Negative (Negative) Urine Urobilinogen <2.0 (<2.0) mg/dL Ur Leukocyte Esterase Negative (Negative) Coronavirus (PCR) (Not Detectd) Influenza Type A RNA (Not Detectd) Influenza Type B (PCR) (Not Detectd) 12/29/21 12/29/21 12/29/21 Range/Units 22:06 22:06 22:06 WBC (3.8-10.6) k/uL RBC (3.80-5.40) m/uL Hgb (11.4-16.0) gm/dL Hct (34.0-46.0) % MCV (80.0-100.0) fL MCH (25.0-35.0) pg MCHC (31.0-37.0) g/dL RDW (11.5-15.5) % Plt Count (150-450) k/uL MPV Neutrophils % % Lymphocytes % % Monocytes % % Eosinophils % % Basophils % % Neutrophils # (1.3-7.7) k/uL Lymphocytes # (1.0-4.8) k/uL Monocytes # (0-1.0) k/uL Eosinophils # (0-0.7) k/uL Basophils # (0-0.2) k/uL PT (9.0-12.0) sec INR (<1.2) APTT (22.0-30.0) sec Sodium 140 (137-145) mmol/L Potassium 4.2 (3.5-5.1) mmol/L Chloride 106 (98-107) mmol/L Carbon Dioxide 22 (22-30) mmol/L Anion Gap 12 mmol/L BUN 12 (7-17) mg/dL Creatinine 0.80 (0.52-1.04) mg/dL Est GFR (CKD-EPI)AfAm >90 (>60 ml/min/1.73 sqM) Est GFR (CKD-EPI)NonAf 84 (>60 ml/min/1.73 sqM) Glucose 87 (74-99) mg/dL Calcium 10.1 (8.4-10.2) mg/dL Total Bilirubin 0.6 (0.2-1.3) mg/dL AST 30 (14-36) U/L ALT 23 (4-34) U/L Alkaline Phosphatase 130 H (38-126) U/L Total Protein 7.8 (6.3-8.2) g/dL Albumin 4.9 (3.5-5.0) g/dL Amylase 108 (30-110) U/L Lipase 244 (23-300) U/L Urine Color Urine Appearance (Clear) Urine pH (5.0-8.0) Ur Specific [place] (1.001-1.035) Urine Protein (Negative) Urine Glucose (UA) (Negative) Urine Ketones (Negative) Urine Blood (Negative) Urine Nitrite (Negative) Urine Bilirubin (Negative) Urine Urobilinogen (<2.0) mg/dL Ur Leukocyte Esterase (Negative) Coronavirus (PCR) Not Detected (Not Detectd) Influenza Type A RNA Not Detected (Not Detectd) Influenza Type B (PCR) Not Detected (Not Detectd) - EKG Data -: EKG Interpreted by Me EKG Comments: 12-lead Electrocardiogram Interpretation Note EKG was reviewed and interpreted by myself. 12-lead ECG performed at 2242 is interpreted by me as revealing normal sinus rhythm at a rate of 75 beats per minute. [place] is normal. MS interval is 189 ms, QRS duration is 94 ms, QTc is 405 ms.. Chronic T-wave inversion seen in lead III, seen from November 2021 EKG as well. There were no acute ST or T wave abnormalities to suggest myocardial ischemia or injury. R wave progression across the precordium was satisfactory. By my interpretation this EKG is non-diagnostic for acute ischemia. Disposition Clinical Impression: Joint pain, Constipation Disposition: HOME SELF-CARE Condition: Good Prescriptions: Docusate [Colace] 100 mg PO DAILY 7 Days #7 capsule Is patient prescribed a controlled substance at d/c from ED?: No Referrals: Ike Fitzpatrick MD [Primary Care Provider] - 1-2 days Time of Disposition: 00:15
[2021-12-29] MEDS ORDERED: MORPHINE SULFATE 4 MG/ML SYRINGE IVP STA (23:04)
[2021-12-29 23:07] LABS: Partial Thromboplastin Time 23.7 sec (22.0-30.0); Prothrombin Time 10.7 sec (9.0-12.0)
[2021-12-30 00:07] VITALS: BP 140/85; PULSE 74; RESP 16
--- NOTE | 2021-12-30 00:16 | CT ---
EXAM: CT Abdomen and Pelvis With Intravenous Contrast CLINICAL HISTORY: ITS.REASON CT Reason: abdominal pain, acute, nonlocalized TECHNIQUE: Axial computed tomography images of the abdomen and pelvis with intravenous contrast. CTDI is 30 mGy and DLP is 1322.8 mGy-cm. This CT exam was performed using one or more of the following dose reduction techniques: automated exposure control, adjustment of the mA and/or kV according to patient size, and/or use of iterative reconstruction technique. COMPARISON: 09/09/2014. FINDINGS: Lung bases: Minimal scarring and subsegmental atelectasis noted at the lung bases. Heart: The heart is normal in size. ABDOMEN: Liver: Diffuse fatty infiltration of the liver is noted. Subcentimeter simple hepatic cysts are noted which requires no follow-up. Gallbladder and bile ducts: Status post cholecystectomy. No ductal dilation. Pancreas: See below. Spleen: Spleen enhance uniformly. Adrenals: The adrenal glands, the head, body, tail of the pancreas are unremarkable. Kidneys and ureters: The patient is status post left nephrectomy. No right renal calculus or hydronephrosis. Stomach and bowel: Unremarkable. No obstruction. No mucosal thickening. PELVIS: Appendix: The appendix is seen on axial image 51 and is unremarkable. Bladder: The bladder is underdistended. Reproductive: Status post hysterectomy. ABDOMEN and PELVIS: Intraperitoneal space: Unremarkable. No free air. No significant fluid collection. Bones/joints: No spondylolysis. No acute fracture. No dislocation. Soft tissues: 3 cm umbilical hernia containing mesenteric fat only. Vasculature: Portal vein is patent. Flow is noted within the celiac, SMA, the renal arteries, and SAUNDRA. Atherosclerotic disease of the abdominal aorta without change in caliber. No abdominal aortic aneurysm. Lymph nodes: Unremarkable. No enlarged lymph nodes. IMPRESSION: 1. The patient is status post left nephrectomy. 2. The appendix is unremarkable. 3. No hydronephrosis of the right kidney. 4. Fatty liver. 5. Status post cholecystectomy. 6. Moderate quantity of stool throughout the colon without bowel obstruction be 7. Status post hysterectomy.
[2021-12-30] MEDS ORDERED: dexAMETHasone 2 MG TAB PO STA (00:30)
== END 2021-12-30 01:06 | disposition home or self-care (01) ==
LOC: EC 19:39
DX: M25.50 Pain in unspecified joint (principal); K59.00 Constipation, unspecified; I10 Essential (primary) hypertension; E78.5 Hyperlipidemia, unspecified; F41.9 Anxiety disorder, unspecified; G40.909 Epilepsy, unspecified, not intractable, without status epilepticus; F32.A Depression, unspecified; Z79.82 Long term (current) use of aspirin; Z79.811 Long term (current) use of aromatase inhibitors; Z79.899 Other long term (current) drug therapy; Z88.2 Allergy status to sulfonamides; Z88.6 Allergy status to analgesic agent; Z88.1 Allergy status to other antibiotic agents; Z20.822 Contact with and (suspected) exposure to COVID-19
CPT/HCPCS: 36415; 93005; 80053; 82150; 83690; 85025; 85610; 85730; 81003; 87502; 87635; 71046; 74018; 74177; 99284; 96374; 96375 ×2; 96361 ×2; J2270; J2405; J8540; C9113; Q9967

== ENCOUNTER 2022-10-04 02:42 | Inpatient (IN) | payer BC ==
[2022-10-04] MEDS ORDERED: SODIUM CHLORIDE 0.9% 1,000 ML IV STA (02:45)
[2022-10-04] MEDS ORDERED: methylPREDNISolone SOD SUCCI 125 MG/2 ML VIAL IV STA (02:52)
[2022-10-04] MEDS ORDERED: NOREPINEPHRINE 32 MG in SODIUM CHLORIDE 0.9% 218 ML IV ONE (02:54)
--- NOTE | 2022-10-04 03:11 | XR ---
EXAM: XR Chest, 1 View CLINICAL HISTORY: ITS.REASON XR Reason: cardiac arrest TECHNIQUE: Frontal view of the chest. COMPARISON: 12/29/2021 FINDINGS: Lungs: Pulmonary vascular congestion and interstitial edema. Pleural space: No pleural effusion. No pneumothorax. Heart: Unremarkable. No cardiomegaly. Tubes, lines and devices: Endotracheal tube terminates 2.5 cm above the amy. Right subclavian central line terminates within the distal SVC. IMPRESSION: 1. Appropriately positioned lines and tubes. 2. Pulmonary vascular congestion and interstitial edema.
[2022-10-04] MEDS ORDERED: NALOXONE 0.4 MG/ML 1 ML VIAL IV PRN (03:14)
[2022-10-04] MEDS ORDERED: ACETAMINOPHEN SUPPOSITORY 650 MG SUPP RECTAL PRN (03:14)
[2022-10-04 03:20] LABS: Basophils # (A) 0.1 k/uL (0-0.2); Basophils % (A) 0 %; Eosinophils # (A) 0.1 k/uL (0-0.7); Eosinophils % (A) 1 %; HCT 39.7 % (34.0-46.0); HGB 12.6 gm/dL (11.4-16.0); Hypochromasia Moderate; Lymphocytes # (A) 2.6 k/uL (1.0-4.8); Lymphocytes % (A) 19 %; MCHC 31.7 g/dL (31.0-37.0); MCV 107.4 fL (80.0-100.0); Macrocytosis Moderate; Mean Platelet Volume 8.5; Monocytes # (A) 0.4 k/uL (0-1.0); Monocytes % (A) 3 %; Neutrophils # (A) 10.8 k/uL (1.3-7.7); Neutrophils % (A) 77 %; Platelet Count 271 k/uL (150-450); RBC 3.69 m/uL (3.80-5.40); RDW 13.9 % (11.5-15.5); WBC 14.1 k/uL (3.8-10.6)
[2022-10-04 03:23] LABS: ALT 218 U/L (4-34); AST 736 U/L (14-36); African American GFR (CKD) 32 (>60 ml/min/1.73 sqM); Albumin 2.9 g/dL (3.5-5.0); Alkaline Phosphatase 338 U/L (38-126); Anion Gap 14 mmol/L; Blood Urea Nitrogen 31 mg/dL (7-17); Calcium 7.3 mg/dL (8.4-10.2); Carbon Dioxide 14 mmol/L (22-30); Chloride 110 mmol/L (98-107); Glucose 188 mg/dL (74-99); Non-African American GFR(CKD) 27 (>60 ml/min/1.73 sqM); Sodium 138 mmol/L (137-145); Total Bilirubin 0.6 mg/dL (0.2-1.3); Total Protein 5.5 g/dL (6.3-8.2)
[2022-10-04 03:26] LABS: Potassium 6.4 mmol/L (3.5-5.1)
[2022-10-04] MEDS ORDERED: MIDAZOLAM 1 MG/ML 5 ML VIAL IV STA (03:36)
[2022-10-04] MEDS ORDERED: SODIUM BICARB 8.4% 50 ML SYR (1 MEQ/ML) IV ONE (03:37)
[2022-10-04] MEDS ORDERED: CALCIUM GLUCONATE IN NACL 1 GM in SALINE 1 100ML.BAG IVPB ONE (03:37)
[2022-10-04] MEDS ORDERED: ASPIRIN 300 MG SUPP RECTAL STA (03:38)
[2022-10-04] MEDS ORDERED: HEPARIN SODIUM 1,000 UN/ML (10ML VL) IV PRN (03:39)
[2022-10-04] MEDS ORDERED: HEPARIN SODIUM 1,000 UN/ML (10ML VL) IV ONE (03:39)
--- NOTE | 2022-10-04 03:39 | P.HPIM ---
History of Present Illness H&P Date: 10/04/22 Chief Complaint: cardiopulmonar arrest 57 year old female with hypertension , COPD, nephrectomy history obtained from chart review, patient unresponsive , intubated patient presented to a hospital in [facility] for scheduled orthopedic surgery for a recent right UE traumatic fracture. upon doing pre admission workup , she was found in [facility] , and transferred to [facility] for nephrology eval and IVF hydration. upon arrival to [facility] , she was alert oriented and clinically stable , ED docs documented normal examination upon initial evaluation at [facility] , then She started to slowly decline, with hypoxemia, reporting she is not feeling well, and suddenly went unresponsive after about 1-2 hours of her presentation to [facility] . CPR initiated and seems to have required multiple sessions seperated by brief ROSCs of about 5-10 min. once she had her final ROSC, EKG done which showed STEMI in the RCA distribution , which was discussed with cardiology production hand. then she was noted to have a dilated right pupil compared to the left, CT of the brain done to rule out bleeding, and showed multifocal bilateral acute /subacute infarcts. patient was transferred to our facility here for cardiology evaluation and ICU care. Review of Systems ROS unobtainable: due to mental status Past Medical History Past Medical History: Hyperlipidemia, Hypertension, Mitral Valve Prolapse (MVP), Renal Disease, Seizure Disorder Additional Past Medical History / Comment(s): PAD ( 2 blocked arteries in the base of her brain-neurologist reports that they are very small and she will likely have a CVA due to them) , Last seizure was over 3 years ago History of Any Multi-Drug Resistant Organisms: None Reported Past Surgical History: Section, Hysterectomy, Tubal Ligation Additional Past Surgical History / Comment(s): L. kidney removed Past Anesthesia/Blood Transfusion Reactions: No Reported Reaction Past Psychological History: Anxiety, Depression Past Alcohol Use History: None Reported Past Drug Use History: None Reported - Past Family History Father Family Medical History: Unable to Obtain Additional Family Medical History / Comment(s): Pt. Was adopted Medications and Allergies Home Medications Medication Instructions Recorded Confirmed Type Aspirin EC [Ecotrin Low Dose] 81 mg PO DAILY 08/30/17 11/14/21 History Fluticasone/Umeclidin/Vilanter 1 puff INHALATION RT-DAILY 11/14/21 11/14/21 History [Trelegy Ellipta 200-62.5-25] Ipratropium-Albuterol Nebulize 3 ml INHALATION RT-QID PRN 11/14/21 11/14/21 History [Duoneb 0.5 mg-3 mg/3 ml Soln] Nitroglycerin Sl Tabs [Nitrostat] 0.4 mg SL Q5M PRN 11/14/21 11/14/21 History Omeprazole [PriLOSEC] 20 mg PO DAILY 11/14/21 11/14/21 History Ondansetron Odt [Zofran ODT] 4 mg PO TID PRN 11/14/21 11/14/21 History PARoxetine HCL [Paxil] 10 mg PO DAILY 11/14/21 11/14/21 History carvediloL [Coreg] 6.25 mg PO BID #0 11/15/21 11/14/21 Rx lisinopriL [Zestril] 5 mg PO DAILY #0 11/15/21 11/14/21 Rx Docusate [Colace] 100 mg PO DAILY 7 Days #7 capsule 12/30/21 Rx Allergies Allergy/AdvReac Type Severity Reaction Status Date / Time sulfamethoxazole Allergy Severe Unknown Verified 10/04/22 02:49 [From Bactrim] rofecoxib [From Vioxx] Allergy Anaphylaxis Verified 10/04/22 02:49 trimethoprim [From Bactrim] Allergy Unknown Verified 10/04/22 02:49 NSAIDS (Non-Steroidal AdvReac Unknown Verified 10/04/22 02:49 Anti-Inflamma Physical Exam Vitals: Vital Signs Pulse Resp BP Pulse Ox 10/04/22 02:49 95 16 134/75 100 Intake and Output 10/03/22 10/03/22 10/04/22 14:59 22:59 06:59 Other: Weight 81 kg Constitutional: unresponsive , intubated Eyes: Anicteric sclerae, swollen eyelids , moist conjunctiva, right Pupil round and dilated 5 mm not reactive to light , and left pupil constricted 2 mm ENMT: NC/AT, intubated Neck: Supple, no masses, or JVD No carotid bruits No thyromegaly Lungs: Clear to auscultation Clear to percussion Normal respiratory effort, no accessory muscle use Cardiovascular: Heart regular in rate and rhythm, No murmurs, gallops, or rubs No peripheral edema Abdominal: distended , no NG tube in place Nontender, no guarding, rebound or rigidity Abdomen moving with respiration sluggish bowel sounds No hepatomegaly, No splenomegaly No palpable mass No abdominal wall hernia noted Skin: bruising and echymosis over the lower abd Extremities: No digital cyanosis No clubbing Pedal pulses weak and symmetrical capillary refill immediate Radial pulses intact on the left , and capillary refill immediate over the right fingers (radial pulse covered by the splint) Psychiatric: intubated , unresponsive , not sedated Neuro unable to perform right subclavian triple lumen central cath graham cath in place RUE in splint , capillary refill immediate over right fingers Results CBC & Chem 7: 10/04/22 03:07 10/04/22 03:07 Labs: Abnormal Lab Results - Last 24 Hours (Table) 10/04/22 10/04/22 10/04/22 Range/Units 03:07 03:07 03:07 WBC 14.1 H (3.8-10.6) k/uL RBC 3.69 L (3.80-5.40) m/uL MCV 107.4 H (80.0-100.0) fL Neutrophils # 10.8 H (1.3-7.7) k/uL Potassium 6.4 H* (3.5-5.1) mmol/L Chloride 110 H (98-107) mmol/L Carbon Dioxide 14 L (22-30) mmol/L BUN 31 H (7-17) mg/dL Creatinine 2.01 H (0.52-1.04) mg/dL Glucose 188 H (74-99) mg/dL Calcium 7.3 L (8.4-10.2) mg/dL Magnesium 3.0 H (1.6-2.3) mg/dL AST 736 H (14-36) U/L ALT 218 H (4-34) U/L Alkaline Phosphatase 338 H (38-126) U/L Troponin I 63.500 H* (0.000-0.034) ng/mL Total Protein 5.5 L (6.3-8.2) g/dL Albumin 2.9 L (3.5-5.0) g/dL Assessment and Plan Assessment: 57 year old female with recent traumatic fracture of her right UE , went for her scheduled surgery, then suddenly started deteriorating. she went into cardiopulmonary arrest requiring multiple rounds of CPR with brief ROSC in between requiring intubation. she was eventually stabilized, imaging of the brain showed multifocal bilateral acute /subacute infarcts, EKG showed STEMI in RCA distribution , for which transferred to our facility for cardiology evaluation. I discussed the case with ED doc, and I accepted the admission for ICU care. it is thought that she had fat emboli to the lungs (causing hypoxemia ) and to the brain (possibly through a PFO) due to right UE fracture or this could be simply multiple thrombotic emboli await CTA head and neck , CTA chest . [employer] LE[employer] acute encephalopathy CT (from other facility ) showed multifocal bilateral acute / subacute infarcts unresponsive , off sedation neuro checks seizure and fall precautions pending CTA head and neck check MRI brain neurology consult unequal pupils upon presentation , await CT brain to rule out increase intracranial pressure, brain herniation Avoid heparinization due to possiblity of acute stroke possible fat emboli check echocardiogram CVS on IV pressors s/p multiple rounds of CPR , downtime not documented monitor vital signs supportive care IVF hydration with normal saline cardiology consult repeat EKG does not show STEMI elevated trops post CPR respiratory acute hypoxic and hypercapnic respiratory failure s/o intubation and vent care possibility of acute PE , vs fat emboli based on brain CT findings await CTA chest hold off heparinization due to multifocal brain infarcts, and possibly fat emboli supplemental oxygen as needed continue with steroids pulmonary consult metabolic acute respiratory and metabolic acidosis supportive care renal s/p left nephrectomy ALLY avoid nephrotoxic meds pending CTA head and neck and CTA chest consult nephrology monitor urine output graham cath care bun 34 , cr 1.9 hyperkalemia 6.1 , will give K shifters and follow up , possibly secondary to severe metabolic and respiratory acidosis infectious elevated WBC most likely reactive doubt infectious process at this time will continue to monitor hematology possible thromboembolic event vs fat emboli Hgb 11.1 and Platelets 319 unremarkable GI no report of bleeding insert NG tube check CT abd , due to abd distention , most likely secondary to CPR GI PPX with protonix daily guarded prognosis full code DVT PPX , await CT results to rule out bleeding mechanical for now
--- NOTE | 2022-10-04 03:43 | ED ---
General Adult HPI - General Chief complaint: Neuro Symptoms/Deficit Stated complaint: STEMI/STROKE Time Seen by Provider: 10/04/22 02:45 Source: RN/MD, EMS, RN notes reviewed, old records reviewed Mode of arrival: EMS Limitations: altered mental status - History of Present Illness Initial comments: 57-year-old female who presents from outside hospital status post cardiac arrest. Patient had been seen at [facility] for preoperative lab testing and was noted to have an acute kidney injury with elevated serum creatinine. She was transferred to [facility] for evaluation treatment prior to receiving orthopedic surgery on her right upper extremity. While in the emergency department the patient became altered and subsequently had arrested. She was intubated and resuscitation was successfully performed. She had ischemic EKG status post cardiac arrest with inferior ST segment elevation. Discussion with cardiology regarding potential intervention however the patient subsequently had multiple further cardiac arrests requiring continued rounds of CPR and resuscitative drugs. She had been started on a bicarb drip and norepinephrine which did gain some stability in this patient she received a CT brain which showed multiple areas of infarction and she was transferred to this institution for further management. Patient's family have been informed of the poor prognosis prior to transfer. - Related Data Home Medications Medication Instructions Recorded Confirmed Aspirin EC [Ecotrin Low Dose] 81 mg PO DAILY 08/30/17 11/14/21 Fluticasone/Umeclidin/Vilanter 1 puff INHALATION RT-DAILY 11/14/21 11/14/21 [Trelegy Ellipta 200-62.5-25] Ipratropium-Albuterol Nebulize 3 ml INHALATION RT-QID PRN 11/14/21 11/14/21 [Duoneb 0.5 mg-3 mg/3 ml Soln] Nitroglycerin Sl Tabs [Nitrostat] 0.4 mg SL Q5M PRN 11/14/21 11/14/21 Omeprazole [PriLOSEC] 20 mg PO DAILY 11/14/21 11/14/21 Ondansetron Odt [Zofran ODT] 4 mg PO TID PRN 11/14/21 11/14/21 PARoxetine HCL [Paxil] 10 mg PO DAILY 11/14/21 11/14/21 Previous Rx's Medication Instructions Recorded carvediloL [Coreg] 6.25 mg PO BID #0 11/15/21 lisinopriL [Zestril] 5 mg PO DAILY #0 11/15/21 Docusate [Colace] 100 mg PO DAILY 7 Days #7 capsule 12/30/21 Allergies Allergy/AdvReac Type Severity Reaction Status Date / Time sulfamethoxazole Allergy Severe Unknown Verified 10/04/22 02:49 [From Bactrim] rofecoxib [From Vioxx] Allergy Anaphylaxis Verified 10/04/22 02:49 trimethoprim [From Bactrim] Allergy Unknown Verified 10/04/22 02:49 NSAIDS (Non-Steroidal AdvReac Unknown Verified 10/04/22 02:49 Anti-Inflamma Review of Systems ROS Statement: Those systems with pertinent positive or pertinent negative responses have been documented in the HPI. ROS Other: All systems not noted in ROS Statement are negative. Past Medical History Past Medical History: Hyperlipidemia, Hypertension, Mitral Valve Prolapse (MVP), Renal Disease, Seizure Disorder Additional Past Medical History / Comment(s): PAD ( 2 blocked arteries in the base of her brain-neurologist reports that they are very small and she will likely have a CVA due to them) , Last seizure was over 3 years ago History of Any Multi-Drug Resistant Organisms: None Reported Past Surgical History: Section, Hysterectomy, Tubal Ligation Additional Past Surgical History / Comment(s): L. kidney removed Past Anesthesia/Blood Transfusion Reactions: No Reported Reaction Past Psychological History: Anxiety, Depression Past Alcohol Use History: None Reported Past Drug Use History: None Reported - Past Family History Father Family Medical History: Unable to Obtain Additional Family Medical History / Comment(s): Pt. Was adopted General Exam Limitations: no limitations General appearance: obtunded Eye exam: Absent: PERRL (Right pupil is 6 mm, left pupil is 3 mm both are nonreactive) Respiratory exam: Present: rales. Absent: respiratory distress Cardiovascular Exam: Present: regular rate, normal rhythm GI/Abdominal exam: Present: soft, distended. Absent: tenderness Extremities exam: Present: other (Splint applied to the right upper extremity) Neurological exam: Absent: reflexes normal (No corneal reflex, no pupillary reflex, no spontaneous movement) Skin exam: Present: warm, dry Course Vital Signs 10/04/22 10/04/22 02:49 03:54 Pulse Rate 95 Respiratory 16 Rate Blood Pressure 134/75 O2 Sat by Pulse 100 Oximetry Fraction of 100 Inspired Oxygen (FIO2) Medical Decision Making - Medical Decision Making Was pt. sent in by a medical professional or institution (, [facility], OUTREACH DIRECTOR, urgent ca re, hospital, or fci...) When possible be specific @ -Patient transferred from [facility] Did you speak to anyone other than the patient for history (EMS, parent, family, police, friend...)? What history was obtained from this source @ -[I spoke with the paramedics who transported the patient and with the ER physician who had resuscitated this patient prior to transfer. Did you review nursing and triage notes (agree or disagree)? Why? @ -I reviewed and agree with nursing and triage notes Were old charts reviewed (outside hosp., previous admission, EMS record, old EKG, old radiological studies, urgent care reports/EKG's, fci records)? Report findings @ -No old charts were reviewed Differential Diagnosis (chest pain, altered mental status, abdominal pain women, abdominal pain men, vaginal bleeding, weakness, fever, dyspnea, syncope, headache, dizziness, GI bleed, back pain, seizure, CVA, palpatations, mental health, musculoskeletal)? @ -[Pulmonary embolism, fat embolism, CVA, ACS, acidosis EKG interpreted by me (3pts min.). @ -[Sinus rhythm rate of 95 WV interval 186, QRS duration 132, QTC 410, no ST segment elevation intraventricular conduction delay. X-rays interpreted by me (1pt min.). @ -[Chest x-ray showing diffuse pulmonary edema with ET tube and subclavian line in appropriate position. CT interpreted by me (1pt min.). @ -CT is ordered of the brain, CT angiogram of the head and neck, CT angiogram of the chest and CT of the abdomen pelvis have been ordered and studies and results are pending. U/S interpreted by me (1pt. min.). @ -None done What testing was considered but not performed or refused? (CT, X-rays, U/S, labs)? Why? @ -None What meds were considered but not given or refused? Why? @ -None Did you discuss the management of the patient with other professionals (professionals i.e. , [facility], OUTREACH DIRECTOR, lab, RT, psych nurse, social services specialist, newspaper delivery counselor, teacher, occupational health and safety officer, binder caser)? Give summary @ -Case was discussed with Dr. Chin prior to transfer and after the patient arrived. Case is discussed with Dr. Stubbs who will admit the patient and with [facility] nurse practitioner covering for the ICU. Was smoking cessation discussed for >3mins.? @ -No Was critical care preformed (if so, how long)? @ -Yes, 35 minutes Were there social determinants of health that impacted care today? How? (Homele ssness, low income, unemployed, alcoholism, drug addiction, transportation, low edu. Level, literacy, decrease access to med. care, penitentiary, rehab)? @ -No Was there de-escalation of care discussed even if they declined (Discuss DNR or withdrawal of care, Hospice)? DNR status @ -No What co-morbidities impacted this encounter? (DM, HTN, Smoking, COPD, CAD, Cancer, CVA, ARF, Chemo, Hep., AIDS, mental health diagnosis, sleep apnea, morbid obesity)? @ -Patient has only one kidney. Was patient admitted / discharged? Hospital course, mention meds given and route, prescriptions, significant lab abnormalities, going to OR and other pertinent info. @ -[57-year-old female status post multiple episodes of cardiopulmonary arrest. Upon arrival repeat workup is initiated including full set of laboratory testing post cardiac arrest, EKG, and chest x-ray are performed. Patient has stable hemoglobin, mild leukocytosis. She is hyperkalemic which is treated with calcium gluconate and bicarbonate as well as normal saline. ABG is pending. She has signs of multiorgan failure including elevated liver enzymes, elevated creatinine, elevated troponin. Troponin minimally elevated secondary to primary ACS or post cardiac arrest, with prolonged resuscitation and prolonged downtime. I will initiate heparin in this patient for possible ACS. This may need to be adjusted if the patient does have pulmonary embolism. She's given a dose of steroids for the possibility of fat embolism. She is continued on sodium bicarb and norepinephrine. She will be admitted to the ICU for supportive care. Undiagnosed new problem with uncertain prognosis? @ -No Drug Therapy requiring intensive monitoring for toxicity (Heparin, Nitro, Insulin, Cardizem)? @ -No Were any procedures done? @ -No Diagnosis/symptom? @ -Status post cardiopulmonary arrest, acute CVA, troponin elevation. Acute, or Chronic, or Acute on Chronic? @ -Acute Uncomplicated (without systemic symptoms) or Complicated (systemic symptoms)? @ -Complicated Side effects of treatment? @ -No Exacerbation, Progression, or Severe Exacerbation? @ -No Poses a threat to life or bodily function? How? (Chest pain, USA, SD, pneumonia, PE, COPD, DKA, ARF, appy, cholecystitis, CVA, Diverticulitis, Homicidal, Suicidal, threat to staff... and all critical care pts) @ -Yes, ACS, CVA, status post cardiopulmonary arrest - Lab Data Result diagrams: 10/04/22 03:07 10/04/22 03:07 Lab Results 10/04/22 10/04/22 10/04/22 Range/Units 03:07 03:07 03:07 WBC 14.1 H (3.8-10.6) k/uL RBC 3.69 L (3.80-5.40) m/uL Hgb 12.6 (11.4-16.0) gm/dL Hct 39.7 (34.0-46.0) % MCV 107.4 H (80.0-100.0) fL MCH 34.0 (25.0-35.0) pg MCHC 31.7 (31.0-37.0) g/dL RDW 13.9 (11.5-15.5) % Plt Count 271 (150-450) k/uL MPV 8.5 Neutrophils % 77 % Lymphocytes % 19 % Monocytes % 3 % Eosinophils % 1 % Basophils % 0 % Neutrophils # 10.8 H (1.3-7.7) k/uL Lymphocytes # 2.6 (1.0-4.8) k/uL Monocytes # 0.4 (0-1.0) k/uL Eosinophils # 0.1 (0-0.7) k/uL Basophils # 0.1 (0-0.2) k/uL Hypochromasia Moderate Macrocytosis Moderate PT 16.3 H (9.0-12.0) sec INR 1.6 H (<1.2) APTT 57.1 H (22.0-30.0) sec Sodium 138 (137-145) mmol/L Potassium 6.4 H* (3.5-5.1) mmol/L Chloride 110 H (98-107) mmol/L Carbon Dioxide 14 L (22-30) mmol/L Anion Gap 14 mmol/L BUN 31 H (7-17) mg/dL Creatinine 2.01 H (0.52-1.04) mg/dL Est GFR (CKD-EPI)AfAm 32 (>60 ml/min/1.73 sqM) Est GFR (CKD-EPI)NonAf 27 (>60 ml/min/1.73 sqM) Glucose 188 H (74-99) mg/dL Calcium 7.3 L (8.4-10.2) mg/dL Magnesium 3.0 H (1.6-2.3) mg/dL Total Bilirubin 0.6 (0.2-1.3) mg/dL AST 736 H (14-36) U/L ALT 218 H (4-34) U/L Alkaline Phosphatase 338 H (38-126) U/L Troponin I (0.000-0.034) ng/mL Total Protein 5.5 L (6.3-8.2) g/dL Albumin 2.9 L (3.5-5.0) g/dL 10/04/22 Range/Units 03:07 WBC (3.8-10.6) k/uL RBC (3.80-5.40) m/uL Hgb (11.4-16.0) gm/dL Hct (34.0-46.0) % MCV (80.0-100.0) fL MCH (25.0-35.0) pg MCHC (31.0-37.0) g/dL RDW (11.5-15.5) % Plt Count (150-450) k/uL MPV Neutrophils % % Lymphocytes % % Monocytes % % Eosinophils % % Basophils % % Neutrophils # (1.3-7.7) k/uL Lymphocytes # (1.0-4.8) k/uL Monocytes # (0-1.0) k/uL Eosinophils # (0-0.7) k/uL Basophils # (0-0.2) k/uL Hypochromasia Macrocytosis PT (9.0-12.0) sec INR (<1.2) APTT (22.0-30.0) sec Sodium (137-145) mmol/L Potassium (3.5-5.1) mmol/L Chloride (98-107) mmol/L Carbon Dioxide (22-30) mmol/L Anion Gap mmol/L BUN (7-17) mg/dL Creatinine (0.52-1.04) mg/dL Est GFR (CKD-EPI)AfAm (>60 ml/min/1.73 sqM) Est GFR (CKD-EPI)NonAf (>60 ml/min/1.73 sqM) Glucose (74-99) mg/dL Calcium (8.4-10.2) mg/dL Magnesium (1.6-2.3) mg/dL Total Bilirubin (0.2-1.3) mg/dL AST (14-36) U/L ALT (4-34) U/L Alkaline Phosphatase (38-126) U/L Troponin I 63.500 H* (0.000-0.034) ng/mL Total Protein (6.3-8.2) g/dL Albumin (3.5-5.0) g/dL Critical Care Time Critical Care Time: Yes Total Critical Care Time: 35 Disposition Clinical Impression: Cerebrovascular accident (CVA), Cardiopulmonary arrest with successful resuscitation Disposition: ADMITTED IP TO THIS HOSP Condition: Serious Is patient prescribed a controlled substance at d/c from ED?: No Time of Disposition: 03:43
[2022-10-04] MEDS ORDERED: HEPARIN SOD,PORK IN 0.45% NACL 25,000 UNIT in 0.45% NACL 1 250ML.BAG IV SCH (03:45)
[2022-10-04 03:53] LABS: INR 1.6 (<1.2); Partial Thromboplastin Time 57.1 sec (22.0-30.0); Prothrombin Time 16.3 sec (9.0-12.0)
[2022-10-04] MEDS ORDERED: DEXTROSE 5% IN WATER 1,000 ML with SODIUM BICARB (1 MEQ/ML) 150 ML IV SCH (04:00)
[2022-10-04] MEDS ORDERED: DEXTROSE 50% SYRINGE 50 ML IVP STA (04:17)
[2022-10-04] MEDS ORDERED: INSULIN REGULAR 100 UNIT/ML VIAL (IV) IV ONE (04:17)
--- NOTE | 2022-10-04 04:55 | CT ---
EXAM: CT Head Without Intravenous Contrast CLINICAL HISTORY: ITS.REASON CT Reason: CVA TECHNIQUE: Axial computed tomography images of the head/brain without intravenous contrast. CTDI is 25.19 mGy and DLP is 643.3 mGy-cm. This CT exam was performed using one or more of the following dose reduction techniques: automated exposure control, adjustment of the mA and/or kV according to patient size, and/or use of iterative reconstruction technique. COMPARISON: No relevant prior studies available. FINDINGS: Endotracheal tube and OG tube in place. Brain: There is diffuse edema throughout the brain. Remote ischemic injury of the right parietal lobe with encephalomalacia and gliosis. Ventricles: Unremarkable. No ventriculomegaly. Bones/joints: Unremarkable. No acute fracture. Soft tissues: Unremarkable. Sinuses: Unremarkable as visualized. No acute sinusitis. Mastoid air cells: Unremarkable as visualized. No mastoid effusion. IMPRESSION: Diffuse edema throughout the brain concerning for a global hypoxic ischemic injury. Recommend MRI of the brain for further evaluation.
[2022-10-04] MEDS ORDERED: propofoL 100 ML IV ONE (04:57)
--- NOTE | 2022-10-04 05:02 | CT ---
EXAM: CT Angiography Head With Intravenous Contrast CLINICAL HISTORY: ITS.REASON CT Reason: CVA TECHNIQUE: Axial computed tomographic angiography images of the head with intravenous contrast. CTDI is 25.19 mGy and DLP is 643.3 mGy-cm. This CT exam was performed using one or more of the following dose reduction techniques: automated exposure control, adjustment of the mA and/or kV according to patient size, and/or use of iterative reconstruction technique. MIP reconstructed images were created and reviewed. COMPARISON: No relevant prior studies available. FINDINGS: The dural venous sinuses are widely patent. Right internal carotid artery: No acute findings. Intracranial segment is patent with no significant stenosis. No aneurysm. Right anterior cerebral artery: Unremarkable. No occlusion or significant stenosis. No aneurysm. Right middle cerebral artery: Unremarkable. No occlusion or significant stenosis. No aneurysm. Right posterior cerebral artery: Unremarkable. No occlusion or significant stenosis. No aneurysm. Right vertebral artery: Unremarkable as visualized. Left internal carotid artery: No acute findings. Intracranial segment is patent with no significant stenosis. No aneurysm. Left anterior cerebral artery: Unremarkable. No occlusion or significant stenosis. No aneurysm. Left middle cerebral artery: Unremarkable. No occlusion or significant stenosis. No aneurysm. Left posterior cerebral artery: Unremarkable. No occlusion or significant stenosis. No aneurysm. Left vertebral artery: Unremarkable as visualized. Basilar artery: Unremarkable. No occlusion or significant stenosis. No aneurysm. IMPRESSION: No evidence of large vessel occlusion. EXAM: CT Angiography Neck With Intravenous Contrast CLINICAL HISTORY: ITS.REASON CT Reason: CVA TECHNIQUE: Routine carotid CT angiography protocol was performed with intravenous contrast. NASCET criteria using the distal ICAs for comparison were used for evaluation of stenoses. CTDI is 25.19 mGy and DLP is 643.3 mGy-cm. This CT exam was performed using one or more of the following dose reduction techniques: automated exposure control, adjustment of the mA and/or kV according to patient size, and/or use of iterative reconstruction technique. MIP reconstructed images were created and reviewed. COMPARISON: None. FINDINGS: VASCULATURE: Right common carotid artery: Unremarkable. No occlusion or significant stenosis. No dissection. Right internal carotid artery: Unremarkable. Extracranial segment is patent with no occlusion or significant stenosis. No dissection. Right external carotid artery: Unremarkable. No occlusion. Right vertebral artery: Unremarkable. No occlusion or significant stenosis. No dissection. Left common carotid artery: Unremarkable. No occlusion or significant stenosis. No dissection. Left internal carotid artery: Unremarkable. Extracranial segment is patent with no occlusion or significant stenosis. No dissection. Left external carotid artery: Unremarkable. No occlusion. Left vertebral artery: Unremarkable. No occlusion or significant stenosis. No dissection. NECK: Bones/joints: Unremarkable. Soft tissues: Unremarkable. Lung apices: Findings concerning for bronchitis, which may be infectious or inflammatory etiologies. CAROTID STENOSIS REFERENCE USING NASCET CRITERIA: % ICA stenosis = (1 - narrowest ICA diameter/diameter of distal cervical ICA) x 100. Mild - <50% stenosis. Moderate - 50-69% stenosis. Severe - 70-94% stenosis. Near occlusion - 95-99% stenosis. Occluded - 100% stenosis. IMPRESSION: Negative CTA neck.
[2022-10-04 05:03] LABS: Glucose,Whole Blood 190 mg/dL (70-110)
[2022-10-04 05:27] LABS: ABG Base Excess -8.9 mmol/L; ABG HCO3 19 mmol/L (21-25); ABG Oxygen Saturation 99.2 % (94-97); ABG PCO2 45 mmHg (35-45); ABG PH 7.23 (7.35-7.45); ABG PO2 254 mmHg (83-108); ABG TCO2 20 mmol/L (19-24); Allen Test Performed? Yes
--- NOTE | 2022-10-04 05:49 | CT ---
EXAM: CT Angiography Chest With Intravenous Contrast CLINICAL HISTORY: Cardiac arrest TECHNIQUE: Axial computed tomographic angiography images of the chest with intravenous contrast. CTDI is 28 mGy and DLP is 1198 mGy-cm. This CT exam was performed using one or more of the following dose reduction techniques: automated exposure control, adjustment of the mA and/or kV according to patient size, and/or use of iterative reconstruction technique. MIP reconstructed images were created and reviewed. COMPARISON: CT of the chest dated 11/14/2021. Chest x-ray dated 10/04/2022. FINDINGS: Pulmonary arteries: No definitive evidence of PE. Aorta: Mild atherosclerotic vascular calcifications involving the intrathoracic aorta. No thoracic aortic aneurysm. Lungs: Mild pulmonary interstitial and alveolar edema. Bronchial wall thickening, which may be reactive to the pulmonary edema, although concurrent infectious versus inflammatory airways disease may also be present. Pleural space: Small bilateral pleural effusions. No pneumothorax. Heart: Heart is at the upper limits of normal/mildly enlarged with evidence of right heart strain. No significant pericardial effusion. Bones/joints: Multiple bilateral minimally displaced anterior rib fractures are noted from chest compressions. A nondisplaced midsternal fracture is also seen. No dislocation. Soft tissues: See below. Lymph nodes: significant adenopathy. Tubes, lines and devices: Right-sided IJ central venous line with tip in the SVC. Chest wall subcutaneous fat stranding surrounds the insertion of the central venous line and also overlies the sternum, likely postprocedural, although cellulitis cannot be definitively excluded. ET tube tip is approximately 3.1 cm above the amy. Distal end of NG tube is seen within the stomach. IMPRESSION: 1. No definitive evidence of PE. 2. Right-sided IJ central venous line with tip in the SVC. Chest wall subcutaneous fat stranding surrounds the insertion of the central venous line and also overlies the sternum, likely postprocedural, although cellulitis cannot be definitively excluded. 3. Multiple bilateral minimally displaced anterior rib fractures are noted from chest compressions. A nondisplaced midsternal fracture is also seen. 4. Mild pulmonary interstitial and alveolar edema. Correlate clinically for superimposed infection. Attention on follow-up after treatment is recommended to assure resolution. 5. ET tube tip is approximately 3.1 cm above the amy. 6. Distal end of NG tube is seen within the stomach. 7. Heart is at the upper limits of normal/mildly enlarged with evidence of right heart strain. 8. Other findings, as above.
[2022-10-04] MEDS ORDERED: FUROSEMIDE 10 MG/ML 4 ML VIAL IV STA ×2 (06:19→09:24)
--- NOTE | 2022-10-04 06:21 | CT ---
EXAM: CT Abdomen and Pelvis With Intravenous Contrast CLINICAL HISTORY: ab distention TECHNIQUE: Axial computed tomography images of the abdomen and pelvis with intravenous contrast. CTDI is 14.9 mGy and DLP is 599.9 mGy-cm. This CT exam was performed using one or more of the following dose reduction techniques: automated exposure control, adjustment of the mA and/or kV according to patient size, and/or use of iterative reconstruction technique. COMPARISON: CT of the abdomen/pelvis dated 12/29/2021. FINDINGS: Lung bases: Please refer to the CTA of the chest performed the same day. ABDOMEN: Liver: Hepatic steatosis. No mass. Gallbladder and bile ducts: Status post cholecystectomy with mild/moderate biliary dilatation, CBD measuring up to 1.4 cm in diameter, interval worsening, with adjacent fat stranding to check. Pancreas: Unremarkable. No mass. No ductal dilation. Spleen: Unremarkable. No splenomegaly. Adrenals: Unremarkable. No mass. Kidneys and ureters: Status post left nephrectomy. Stomach and bowel: Fluid is seen throughout the small bowel extending into the ascending colon, which may represent infectious versus inflammatory enteritis in the correct clinical setting. No obstruction. PELVIS: Appendix: No findings to suggest acute appendicitis. Bladder: Bardales catheter is seen within a collapsed urinary bladder. Reproductive: Status post hysterectomy. ABDOMEN and PELVIS: Intraperitoneal space: Mild free fluid, likely cardiogenic. No free air. Bones/joints: No acute fracture. No dislocation. Soft tissues: Small fat-containing umbilical hernia. Vasculature: Mild atherosclerotic vascular calcifications involving the intra-abdominal aorta. No abdominal aortic aneurysm. Lymph nodes: Unremarkable. No enlarged lymph nodes. Tubes, lines and devices: Distal end of NG tube is seen within the stomach. IMPRESSION: 1. Mild free fluid, likely cardiogenic. 2. Fluid is seen throughout the small bowel extending into the ascending colon, which may represent infectious versus inflammatory enteritis in the correct clinical setting. 3. Status post left nephrectomy. 4. Status post cholecystectomy with mild/moderate biliary dilatation, CBD measuring up to 1.4 cm in diameter, interval worsening, with adjacent fat stranding to check. Right upper quadrant ultrasound is recommended for further evaluation. 5. Other findings, as above.
[2022-10-04] MEDS ORDERED: SODIUM CHLORIDE 3%(HYPERTONIC) 500 ML IV ONE (06:27)
[2022-10-04 06:44] LABS: Glucose,Whole Blood 183 mg/dL (70-110)
[2022-10-04] MEDS ORDERED: NOREPINEPHRINE 32 MG in SODIUM CHLORIDE 0.9% 218 ML IV SCH (07:15)
--- NOTE | 2022-10-04 07:29 | P.CNPUL ---
History of Present Illness Consult date: 10/04/22 Requesting physician: Jay Dickey Reason for consult: other (ICU management post cardiac arrest) Chief complaint: Cardiac arrest History of present illness: I am seeing this patient in consultation today 10/04/2022 in the intensive care unit status post cardiac arrest at outside facility. Patient is a 57-year-old white female with past medical history significant for hypertension, hy perlipidemia, COPD, chronic kidney disease, and is a current tobacco smoker. Patient did recently fracture her right upper extremity, which is currently in a splint. She was apparently scheduled to undergo orthopedic surgery sometime this week. She was at [facility] yesterday for preoperative blood work, and was found to have an acute kidney injury. She was transferred over to [facility] for evaluation and treatment. While in the emergency room, patient reportedly had multiple cardiac arrests. cumulative downtime is unknow. There was concerns of ischemic EKG changes. After a prolonged down time, the patient did achieve return of spontaneous circulation. The patient was intubated at the outside facility, and transferred to [facility]. On arrival, the patient was in critical condition. She was hemodynamically unstable, and not taken to the [employer] [facility]. Unfortunately, the patient's brain CT shows diffuse edema throughout concerning for global hypoxic ischemic brain injury. Brain CTA showed no acute occlusions or significant stenosis. Chest CT shows no evidence of acute pulmonary embolism. There is mild pulmonary interstitial alveolar edema. There is a right subclavian central venous catheter with the tip within the SVC. There were multiple bilateral minimally displaced anterior rib fractures likely related to chest compressions. There is a nondisplaced mid sternal fracture. Patient is currently in the intensive care unit, intubated mechanical ventilator. Current ventilator settings are assist control, rate 16,400, FiO2 60%, PEEP of 5. First gases drawn at our facility show a pO2 of 254, pCO2 of 45, pH is 7.23. Patient does have 3 A of sodium bicarbonate and D5W infusing at 50 ML's per hour. Patient's rate 20 and tidal volume 450. Peak pressures are 27. Chest x-ray shows endotracheal tube approximately 3 cm from the amy, there is an OG tube coursing below the diaphragm. There is also mild pulmonary edema. Patient is currently asynchronous mechanical ventilator, propofol is infusing at 10 mics per kilogram per minute. This is being titrated up. Blood pressure is hypotensive, and I did insert a left wrist radial art erial line. Norepinephrine is infusing at 0.21 mics per kilogram per minute or approximately 17 mics per minute. Normal saline is infusing at 100 mL per hour. There is minimal amount of urine in the urometer. There is a heparin infusion per protocol. There is obvious alfredo blood coming from the patient's OG tube. Patient also has some significant epistaxis. Heparin will be discontinued. Patient's right pupil greater than left. Complete neuro examination is limited due to sedation. Patient is going to be started on 3% hypertonic saline at 50 ML's per hour for the cerebral edema per neurology. Patient was hyperkalemic on arrival the potassium 6.4 which has been treated with 10 units regular insulin, 1 amp D50 W, and 1 g of calcium gluconate. Repeat potassium is pending. No hyperacute T waves noted on the bedside monitor. Most recent CBC on arrival shows a WBC count of 14, hemoglobin 12.6, hematocrit 39.7, platelets 271. His recent BMP shows sodium 1:30, potassium 6.4, chloride 110,, serum bicarb 14, BUN 31, creatinine 2.01, glucose 188. There is a component of shock liver AST 736, ALT 218, ALP 338. Troponin is elevated at 63.5 status post cardiac arrest. Most recent EKG done at our facility does not show any obvious acute ischemia. Echocardiogram is pending. Patient will be monitored in the intensive care unit, and further recommendations or clubbing. Patient's overall prognosis extremely poor considering her prolonged down time and likely anoxic brain injury. Review of Systems ROS unobtainable: due to endotracheal tube Past Medical History Past Medical History: Hyperlipidemia, Hypertension, Mitral Valve Prolapse (MVP), Renal Disease, Seizure Disorder Additional Past Medical History / Comment(s): PAD ( 2 blocked arteries in the base of her brain-neurologist reports that they are very small and she will likely have a CVA due to them) , Last seizure was over 3 years ago History of Any Multi-Drug Resistant Organisms: None Reported Past Surgical History: Section, Hysterectomy, Tubal Ligation Additional Past Surgical History / Comment(s): L. kidney removed Past Anesthesia/Blood Transfusion Reactions: No Reported Reaction Past Psychological History: Anxiety, Depression Past Alcohol Use History: None Reported Past Drug Use History: None Reported - Past Family History Father Family Medical History: Unable to Obtain Additional Family Medical History / Comment(s): Pt. Was adopted Medications and Allergies Home Medications Medication Instructions Recorded Confirmed Type Aspirin EC [Ecotrin Low Dose] 81 mg PO DAILY 08/30/17 11/14/21 History Fluticasone/Umeclidin/Vilanter 1 puff INHALATION RT-DAILY 11/14/21 11/14/21 History [Trelegy Ellipta 200-62.5-25] Ipratropium-Albuterol Nebulize 3 ml INHALATION RT-QID PRN 11/14/21 11/14/21 History [Duoneb 0.5 mg-3 mg/3 ml Soln] Nitroglycerin Sl Tabs [Nitrostat] 0.4 mg SL Q5M PRN 11/14/21 11/14/21 History Omeprazole [PriLOSEC] 20 mg PO DAILY 11/14/21 11/14/21 History Ondansetron Odt [Zofran ODT] 4 mg PO TID PRN 11/14/21 11/14/21 History PARoxetine HCL [Paxil] 10 mg PO DAILY 11/14/21 11/14/21 History carvediloL [Coreg] 6.25 mg PO BID #0 11/15/21 11/14/21 Rx lisinopriL [Zestril] 5 mg PO DAILY #0 11/15/21 11/14/21 Rx Docusate [Colace] 100 mg PO DAILY 7 Days #7 capsule 12/30/21 Rx Allergies Allergy/AdvReac Type Severity Reaction Status Date / Time sulfamethoxazole Allergy Severe Unknown Verified 10/04/22 02:49 [From Bactrim] rofecoxib [From Vioxx] Allergy Anaphylaxis Verified 10/04/22 02:49 trimethoprim [From Bactrim] Allergy Unknown Verified 10/04/22 02:49 NSAIDS (Non-Steroidal AdvReac Unknown Verified 10/04/22 02:49 Anti-Inflamma Physical Exam Vitals: Vital Signs Pulse Resp BP Pulse Ox FiO2 10/04/22 06:22 50 10/04/22 06:00 99 23 151/60 98 60 10/04/22 05:54 60 10/04/22 05:45 99 25 H 139/70 98 10/04/22 05:30 90 25 H 134/95 98 10/04/22 05:20 100 10/04/22 05:15 95 24 129/102 98 100 10/04/22 05:00 92 16 10/04/22 04:15 124/50 10/04/22 04:10 88 16 124/50 94 L 10/04/22 04:00 91 16 115/87 10/04/22 03:50 92 16 73/62 93 L 10/04/22 03:40 92 16 152/128 10/04/22 03:30 94 16 122/97 98 10/04/22 03:24 92 16 136/69 95 10/04/22 03:10 100 10/04/22 02:49 95 16 134/75 100 Intake and Output 10/03/22 10/03/22 10/04/22 14:59 22:59 06:59 Intake Total 100 Output Total 75 Balance 25 Intake: Intake, IV Titration 100 Amount Dextrose 5% in Water 1, 100 000 ml @ 100 mls/hr IV . [id number] ROSEANN with Sodium Bicarb (1 Meq/ml) 150 ml Rx#:[id number] Output: Urine 75 Other: Weight 81 kg GENERAL EXAM: Sedated on mechanical ventilator. Currently asynchronous. HEAD: Normocephalic and atraumatic EYES: Right pupil larger than left. Reactive to light NOSE: Clear with pink turbinates. Epistaxis THROAT: No erythema or exudates. NECK: No masses, no JVD. CHEST: No chest wall deformity. Right subclavian triple lumen catheter LUNGS: Equal air entry with diffuse rhonchi. Intubated to the mechanical ve ntilator CVS: S1 and S2 normal with no audible murmur, regular rhythm. No extra heart sounds ABDOMEN: Lower abdominal ecchymosis. No hepatosplenomegaly, active bowel sounds, no guarding or rigidity. SPINE: No scoliosis or deformity SKIN: No rashes CENTRAL NERVOUS SYSTEM: Neurological examination is limited due to sedation. Unresponsive to painful stimuli. Right pupil greater than left. Babinski's are neutral EXTREMITIES: Right arm is in a splint. There is no peripheral edema, clubbing, or cyanosis. Peripheral pulses are intact. Results - Laboratory Findings CBC and BMP: 10/04/22 03:07 10/04/22 03:07 ABG ABG pH 7.23 (7.35-7.45) L 10/04/22 05:25 ABG pCO2 45 mmHg (35-45) 10/04/22 05:25 ABG pO2 254 mmHg (83-108) H 10/04/22 05:25 ABG O2 Saturation 99.2 % (94-97) H 10/04/22 05:25 PT/INR, D-dimer PT 16.3 sec (9.0-12.0) H 10/04/22 03:07 INR 1.6 (<1.2) H 10/04/22 03:07 Abnormal lab findings: Abnormal Labs 10/04/22 10/04/22 10/04/22 03:07 03:07 03:07 WBC 14.1 H RBC 3.69 L MCV 107.4 H Neutrophils # 10.8 H PT 16.3 H INR 1.6 H APTT 57.1 H ABG pH ABG pO2 ABG HCO3 ABG O2 Saturation Potassium 6.4 H* Chloride 110 H Carbon Dioxide 14 L BUN 31 H Creatinine 2.01 H Glucose 188 H POC Glucose (mg/dL) Calcium 7.3 L Magnesium 3.0 H AST 736 H ALT 218 H Alkaline Phosphatase 338 H Troponin I Total Protein 5.5 L Albumin 2.9 L 10/04/22 10/04/22 10/04/22 03:07 05:01 05:25 WBC RBC MCV Neutrophils # PT INR APTT ABG pH 7.23 L ABG pO2 254 H ABG HCO3 19 L ABG O2 Saturation 99.2 H Potassium Chloride Carbon Dioxide BUN Creatinine Glucose POC Glucose (mg/dL) 190 H Calcium Magnesium AST ALT Alkaline Phosphatase Troponin I 63.500 H* Total Protein Albumin - Diagnostic Findings Chest x-ray: image reviewed CT scan - chest: image reviewed Assessment and Plan Assessment: Multiple cardiac arrests, at outside facility, with likely prolonged cumulative downtime. There were reported ischemic EKG changes at the outside facility. Troponins elevated at 63.5. Not hemodynamically stable for [employer] NSTEMI with cardiogenic shock, requiring vasopressors in the form of norepinephrine anion gap metabolic acidosis, secondary to above Acute hypoxemic and hypercapnic respiratory failure secondary to above, curr ently intubated to the mechanical ventilator. Most recent chest x-ray shows pulmonary vascular congestion and mild interstitial edema. Anoxic brain injury with cerebral edema Hyperkalemia, treated with 10 units regular insulin, 1 amp D50 W, and 1 g of calcium gluconate. Acute kidney injury Shock liver Multiple bilateral minimally displaced anterior rib fractures and a nondisplaced midsternal fracture related to chest compressions Right arm fracture Chronic obstructive pulmonary disease Hyperlipidemia History of seizure disorder Chronic nicotine dependence Plan: Patient's medications, labs and imaging reviewed Patient is currently on the mechanical ventilator, and increased the patient's respiratory rate to 20 and tidal volume to 450. Increase 3 A sodium bicarb and D5W infusion to 100 ML's per hour Patient's is sedated on propofol Neurology was consulted for cerebral edema, and will be started on 3% hypertonic saline No plans for [employer] at this time, due to hemodynamic instability. Hyperkalemia was treated, and repeat potassium levels pending. No hyperacute T waves noted Personal obvious bleeding from the patient's OG tube and some epistaxis. Patient's heparin will have to be held Patient's overall prognosis extremely poor considering her prolonged down time and likely anoxic brain injury I have personally seen and examined the patient, performed the documentation and the assessment and plan as written. Number of minutes spent on the visit:20 Time with Patient: Greater than 30
--- NOTE | 2022-10-04 07:34 | XR ---
EXAMINATION TYPE: XR chest 1V portable DATE OF EXAM: 10/04/2022 6:33 AM COMPARISON: Chest radiograph from one day prior. TECHNIQUE: XR chest 1V portable Frontal view of the chest. CLINICAL INDICATION:Female, 57 years old with history of Tube placement; FINDINGS: Lungs/Pleura: Multifocal airspace and reticular opacities. No evidence of pneumothorax or pleural eff usion. Pulmonary vascularity: Pulmonary vascular congestion. Heart/mediastinum: Cardiomediastinal silhouette is unremarkable. Musculoskeletal: No acute osseous pathology. Other findings: None Lines/Tubes: Endotracheal tube with distal tip 4.9 cm above the amy. Nasogastric tube with its distal tip and side-port projecting under the diaphragm. Right central venous catheter with distal tip at the cavoatrial junction. IMPRESSION: 1. Similar multifocal reticular opacities. 2. Stable support lines and tubes.
[2022-10-04] MEDS: IPRATROPIUM-ALBUTEROL 3 ML NEB INHALATION SCH ×3 (07:55→15:11)
[2022-10-04] MEDS ORDERED: FORMOTEROL FUMARATE 20 MCG/2 ML NEBU INHALATION SCH (08:00)
[2022-10-04] MEDS ORDERED: BUDESONIDE 1 MG/2 ML NEBU INHALATION SCH (08:00)
[2022-10-04 08:40] LABS: African American GFR (CKD) 26 (>60 ml/min/1.73 sqM); Anion Gap 12 mmol/L; Blood Urea Nitrogen 36 mg/dL (7-17); Calcium 7.3 mg/dL (8.4-10.2); Carbon Dioxide 15 mmol/L (22-30); Chloride 114 mmol/L (98-107); Glucose 171 mg/dL (74-99); Magnesium 2.8 mg/dL (1.6-2.3); Non-African American GFR(CKD) 22 (>60 ml/min/1.73 sqM); Sodium 141 mmol/L (137-145)
[2022-10-04] MEDS ORDERED: PANTOPRAZOLE 40 MG/10 ML VIAL IVP SCH ×2 (09:00)
[2022-10-04] MEDS ORDERED: CHLORHEXIDINE GLUCONATE 15 ML CUP MUCOUS MEM SCH (09:00)
[2022-10-04 09:11] LABS: ABG Base Excess -6.8 mmol/L; ABG HCO3 22 mmol/L (21-25); ABG Oxygen Saturation 97.6 % (94-97); ABG PCO2 58 mmHg (35-45); ABG PO2 121 mmHg (83-108); ABG TCO2 23 mmol/L (19-24)
[2022-10-04 09:15] LABS: ABG PH 7.18 (7.35-7.45); Allen Test Performed? no
--- NOTE | 2022-10-04 09:36 | PCN ---
PROCEDURE NOTE This is a Pulmonary/Critical Care procedure note. PROCEDURE PERFORMED: Left radial art line. PREOPERATIVE DIAGNOSES: Hypotension, frequent blood draws, and blood gas monitoring. POSTOPERATIVE DIAGNOSES: Hypotension, frequent blood draws, and blood gas monitoring. ACADEMIC SUPPORT DIRECTOR: NASRIN Lopez ARTERIAL LINE PLACEMENT: INDICATIONS: Hypotension, frequent blood draws, and blood gas monitoring. A time-out was completed verifying correct patient, procedure, site, positioning, and implant(s) or special equipment if applicable. Darwin's test was performed to ensure adequate perfusion. The patient's left wrist was prepped and draped in sterile fashion. 1% lidocaine was used to anesthetize the area. An 18G Arrow arterial line was introduced into the radial artery. The catheter was threaded over the guide wire, and the needle was removed with appropriate pulsatile blood return. Blood loss was minimal. The catheter was then sutured in place to the skin, and a sterile dressing was applied by the nurse. There was no immediate complication. Perfusion to the extremity distal to the point of catheter insertion was checked and found to be adequate. We used the left radial artery. There were good blood return and waveform. The patient tolerated the procedure well. There were no major complications. Blood pressure was noted to be in the normal range. MMODL / IJN: [id number] /
[2022-10-04 11:10] VITALS: BMI 27.1
--- NOTE | 2022-10-04 11:21 | EEG ---
DATE OF SERVICE: 10/04/2022 ELECTROENCEPHALOGRAM REPORT PREAMBLE: This is a 57-year-old female status post cardiac arrest. Patient is comatose. EEG FINDINGS: This is a 21-channel digital EEG recorded with video component, utilizing 10/20 international system with referential and bipolar montages. Background consists of poorly developed, poorly regulated, severely suppressed background noted in bihemispheric region. Occasional low amplitude delta slowing seen. Background does not seem to be reactive to any procedure. No focal or generalized epileptiform activity was seen. IMPRESSION: This is a severely abnormal EEG due to severely suppressed background and slowing which at times appears isoelectric, suggestive of diffuse cerebral dysfunction as can be seen with severe anoxic encephalopathy. No epileptiform activity was seen. MMODL / IJN: [id number] / [facility]
--- NOTE | 2022-10-04 11:28 | CONS ---
CONSULTATION HISTORY OF PRESENT ILLNESS: Ms. Amarilis Cedillo is a 57-year-old lady who has been transferred here from [facility]. Apparently, she had a fractured humerus, later on had acute kidney injury and was transferred to [facility] where she had a cardiopulmonary arrest, was resuscitated and then CPR was performed for over 60 minutes. The patient has been intubated and transferred here to the ICU. Initially, there was a question of inferior ST elevation, but subsequent EKGs do not reveal any ST elevation on the EKG. She is in a sinus rhythm. She is currently on a propofol drip and she has an acidosis with a pH of 7.3 on the most recent blood gas. She is also on Levophed drip. CT scan reveals cerebral edema that is diffuse suggesting anoxic injury. Overall prognosis is poor for this patient. Based on the prolonged CPR downtime of more than 30 to 40 minutes, I do not believe any cardiac intervention is going to make a difference in the total outcome. Therefore, I am not recommending any intervention. The patient should ideally be evaluated by Neurology, had an echocardiogram and possibly made comfort care. I discussed my thoughts in detail with the nurse and we tried to speak to the family, but there was nobody available. Subsequently, I received a call from the nurse who family have spoken to the admitting doctor and they are receptive to the idea of comfort care and awaiting Neurology evaluation. The patient does have a history of seizure disorder apparently and she has sustained a right arm fracture, details of which are not available. Please review the other notes available in the chart. The patient is on Levophed. PHYSICAL EXAMINATION: VITAL SIGNS: Her blood pressure is 118/70, pulse rate is about 90 sinus. HEENT: Unremarkable. I did not do a detailed exam. Pupils are dilated and fixed. HEART: Reveals S1, S2. No significant murmurs. LUNGS: Revealed ventilator assisted breath sounds. ABDOMEN: Soft. MUSCULOSKELETAL: Lower extremities reveal diminished pulses. CENTRAL NERVOUS SYSTEM: Assessment is not possible. IMPRESSION: 1. Status post cardiac arrest, cannot exclude ischemia, but there is cerebral edema, anoxic injury and the likelihood of recovery is very poor. 2. History of humerus fracture, details unavailable, this was a precipitating factor with fat embolism is a consideration. 3. History of seizure disorder. RECOMMENDATIONS: I am recommending supportive care and echocardiogram and Neurology evaluation and then comfort care after that. The patient's troponin is elevated. This could reflect a number of things including prolonged CPR and cardiac arrest also. I reviewed the findings on echo. MMODL / IJN: [id number] /
[2022-10-04 11:47] LABS: Glucose,Whole Blood 201 mg/dL (70-110)
[2022-10-04] MEDS ORDERED: DEXTROSE 50% SYRINGE 50 ML IVP PRN ×2 (11:53)
[2022-10-04] MEDS ORDERED: INSULIN ASPART (NovoLOG) 100 UNIT/ML VIAL SQ SCH (12:00)
[2022-10-04 12:24] VITALS: TEMP 100.4
[2022-10-04 12:39] LABS: Appearance,Urine Cloudy (Clear)
[2022-10-04 12:45] LABS: Color,Urine Yellow; Specific Gravity,Urine 1.028 (1.001-1.035)
[2022-10-04 12:46] LABS: Bilirubin,Urine Negative (Negative); Glucose,Urine (UA) 2+ (Negative); Ketones,Urine Negative (Negative); Protein,Urine 3+ (Negative)
[2022-10-04 12:47] LABS: Bacteria,Urine Moderate /hpf; Blood,Urine Large (Negative); Leukocyte Esterase,Urine Negative (Negative); Nitrite,Urine Negative (Negative); RBC,Urine >182 /hpf (0-5); Urobilinogen,Urine <2.0 mg/dL (<2.0)
[2022-10-04 12:48] LABS: WBC,Urine 10 /hpf (0-5)
--- NOTE | 2022-10-04 13:06 | CA ---
Transthoracic Echo Report Name: Amarilis Cedillo Age: 57 Gender: F : 1965 Exam Date: 10/04/2022 11:26 Exam Location: [place] [facility] Ht (in): 68 Wt (lb): 178 Ordering Physician: Tristian De Dios Attending/Referring Phys: Ice Skating Instructor Екатерина Noel [facility] Procedure CPT: Indications: evaluate LV function Cardiac Hx: Technical Quality: Technically difficult study Contrast 1: Lumason Total Dose (mL): 5 Contrast 2: Total Dose (mL): MEASUREMENTS (Male / Female) Normal Values 2D ECHO LV Diastolic Diameter PLAX 4.1 cm 4.2 - 5.9 / 3.9 - 5.3 cm LV Systolic Diameter PLAX 3.0 cm IVS Diastolic Thickness 0.9 cm 0.6 - 1.0 / 0.6 - 0.9 cm LVPW Diastolic Thickness 0.9 cm 0.6 - 1.0 / 0.6 - 0.9 cm LV Relative Wall Thickness 0.4 LV Diastolic Volume MOD BP 38.4 cm??? 67 - 155 / 56 - 104 cm??? LV Systolic Volume MOD BP 18.9 cm??? 22 - 58 / 19 - 49 cm??? LV Ejection Fraction MOD BP 50.8 % >= 55 % LV Cardiac Index MOD BP 874.4 cm???/min???m??? LV Diastolic Volume MOD 4C 40.6 cm??? LV Systolic Volume MOD 4C 22.7 cm??? LV Ejection Fraction MOD 4C 44.0 % LV Cardiac Index MOD 4C 801.5 cm???/min???m??? LV Diastolic Length 4C 7.0 cm LV Systolic Length 4C 6.2 cm LV Diastolic Volume MOD 2C 36.3 cm??? LV Systolic Volume MOD 2C 15.3 cm??? LV Ejection Fraction MOD 2C 57.8 % LV Cardiac Index MOD 2C 943.0 cm???/min???m??? LV Diastolic Length 2C 6.9 cm LV Systolic Length 2C 5.9 cm M-MODE Aortic Root Diameter MM 2.7 cm LA Systolic Diameter MM 3.1 cm LA Ao Ratio MM 1.2 AV Cusp Separation MM 2.1 cm DOPPLER AV Peak Velocity 125.0 cm/s AV Peak Gradient 6.3 mmHg AV Mean Velocity 98.2 cm/s AV Mean Gradient 4.1 mmHg AV Velocity Time Integral 17.3 cm LVOT Peak Velocity 76.9 cm/s LVOT Peak Gradient 2.4 mmHg LVOT Velocity Time Integral 11.3 cm Mitral E Point Velocity 31.9 cm/s Mitral A Point Velocity 65.2 cm/s Mitral E to A Ratio 0.5 MV Deceleration Time 246.3 ms LV E' Lateral Velocity 4.3 cm/s Mitral E to LV E' Lateral Ratio 7.4 LV E' Septal Velocity 3.4 cm/s Mitral E to LV E' Septal Ratio 9.5 Right Atrial Pressure 8.0 mmHg FINDINGS Left Ventricle Left ventricular cavity size normal. Left ventricular wall thickness normal. Left ventricular ejection fraction is estimated at 50-55 %. Borderline left ventricular systolic function Right Ventricle Severe right ventricular dilatation. Moderately reduced right ventricular global systolic function. Unable to estimate the right ventricular systolic pressure. Right Atrium Right atrium not well visualized but appears dilated. Left Atrium Normal left atrial size. Mitral Valve Mitral valve not well visualized. No mitral regurgitation. Aortic Valve Aortic valve not well visualized. No aortic regurgitation. Tricuspid Valve Tricuspid valve not well visualized. No tricuspid regurgitation. Pulmonic Valve Pulmonic valve not well visualized. Pericardium No pericardial effusion. Echo free space anterior to the right ventricle likely represents a fat pad. Aorta Normal size aortic root. CONCLUSIONS Technically difficult study. Lumason ECHO contrast used for improved visualization of the endocardial borders (inadequate visualization of two or more contiguous segments). 1. Left ventricle systolic function borderline normal 2. Dilated right ventricle 3. Limited Doppler study Previewed by: Dr. Alejo Yang MD (Electronically Signed) Final Date: 04 October 2022 13:05
[2022-10-04 14:12] LABS: Amphetamine Screen,Urine Not Detected (NotDetected); Barbiturate Screen,Urine Not Detected (NotDetected); Benzodiazepines Screen,Urine Not Detected (NotDetected); Cocaine Screen,Urine Not Detected (NotDetected); Methadone Screen, Urine Not Detected (NotDetected); Opiate Screen,Urine Detected (NotDetected); Oxycodone Screen, Urine Not Detected (NotDetected); Phencyclidine Screen,Urine Not Detected (NotDetected); Tricyclic Antidepressant,Urine Not Detected (NotDetected); Urn Cannabinoid Scrn Not Detected (NotDetected)
[2022-10-04] MEDS ORDERED: MORPHINE SULFATE 2 MG/ML SYRINGE IV PRN (15:09)
[2022-10-04] MEDS ORDERED: LORazepam 2 MG/ML INJ IV PRN (15:09)
[2022-10-04] MEDS ORDERED: MORPHINE SULFATE 4 MG/ML SYRINGE IV PRN (15:09)
[2022-10-04] MEDS ORDERED: GLYCOPYRROLATE 0.2 MG/ML 2 ML VIAL IVP PRN (15:09)
[2022-10-04] MEDS ORDERED: MORPHINE SULFATE (100 MG/2 ML) 100 MG in SODIUM CHLORIDE 0.9% 100 ML IV SCH (15:45)
[2022-10-04] MEDS: ATROPINE OPHTH SOLN 1% 5ML BTL SUBLINGUAL PRN ×2 (15:59→22:20)
[2022-10-04] MEDS ORDERED: SCOPOLAMINE 1 MG/72 HR PATCH TRANSDERM SCH (16:00)
--- NOTE | 2022-10-04 17:43 | P.CNNES ---
History of Present Illness Consult date: 10/04/22 Requesting physician: Laurel Stubbs Reason for Consult: anoxic brain injury History of Present Illness: Patient is a 57-year-old female came to the hospital by ambulance early this morning at 2:42 AM as a transfer from [facility] for cardiac arrest for cardiac catheterization. Patient suffered a right elbow fracture from a fall after she tripped on the dog leash on 09/28/2022. She went to ER, and was marcos daniela in a cast. She was released the same day. She saw an orthopedic surgeon the following day, who recommended surgery that was scheduled for today Sunday. However yesterday patient went for preoperative blood testing, in which it was found that her kidneys are working about "25% of normal". She was recommended to go to the hospital. Patient went to [facility] at around 11:45 AM, where she apparently suffered from a cardiac arrest. It happened 4 different times and each time the arrest lasted for about 10 minutes as per report from the nurse and the patient's family. Patient was subsequently transferred to [facility] for further evaluation. As per EMS flow sheet, when they arrived at [facility] for transfer, found patient laying supine in the hospital bed. Patient is unresponsive upon arrival. Vented. Patient was at [facility] where she needed interventional cardiac catheterization, but was unavailable at the hospital, therefore transported to [facility]. Patient was being given sodium bicarbonate, and Levophed intravenously during transport. EKG showed normal sinus rhythm. Patient's blood pressure at that time was 142/90, pulse rate 95, respiration 20, saturation 100%. CT head revealed diffuse cerebral edema throughout the brain concerning for global hypoxic ischemic injury. I personally do CT head, agree with the findings. There is evidence of old encephalomalacia right occipital lobe. EKG shows sinus rhythm. Chest x-ray revealed pulmonary vascular congestion and interstitial edema. CTA of the chest was no definite evidence for PE. Right- sided IJ central venous line with tip in the SVC. Chest wall subcutaneous fat stranding surrounds the insertion of the central venous line and also overlies t he sternum, likely postprocedural, although cellulitis cannot be definitely excluded. Multiple bilateral minimally displaced anterior rib fractures are noted from chest compressions. A nondisplaced mid sternal fracture. Mild pulmonary interstitial and alveolar edema. CT of abdomen and pelvis revealed fluid is seen throughout the small bowel extending into the ascending colon, which may represent infectious versus inflammatory into right is in the correct clinical setting. Status post left nephrectomy. Mild to moderate biliary dilatation, worsening as compared to the previous CT. Internal medicine to address. Patient currently on propofol 20 mcg/kg per minute. With a sedation holiday, patient was peeping pressure over the ventilator. Therefore was put back on propofol. Patient does not respond to painful stimuli. Patient does have brainstem reflexes with positive gag and cough reflex. Per nurse report, with sedation holiday, patient minimally opened her eyes to sternal rub, but did not track or follow any directions. Family mentions that patient has history of "blocked arteries in the brain" and was told that she may have a stroke in the future. Family mentioned that patient has history of seizures about 3-4 seizures over a period of one year, that was felt to be related to side effect of tramadol. Once tramadol was discontinued, she has not had any seizures in the last 3 years. Patient has smoked 1 pack per day for 35 years, still smokes. She is a social drinker, no drug use. Review of Systems ROS unobtainable: due to endotracheal tube, due to mental status Past Medical History Past Medical History: Hyperlipidemia, Hypertension, Mitral Valve Prolapse (MVP), Renal Disease, Seizure Disorder Additional Past Medical History / Comment(s): PAD ( 2 blocked arteries in the base of her brain-neurologist reports that they are very small and she will lik mateusz have a CVA due to them) , Last seizure was over 3 years ago History of Any Multi-Drug Resistant Organisms: None Reported Past Surgical History: Section, Hysterectomy, Tubal Ligation Additional Past Surgical History / Comment(s): L. kidney removed Past Anesthesia/Blood Transfusion Reactions: No Reported Reaction Past Psychological History: Anxiety, Depression Past Alcohol Use History: None Reported Past Drug Use History: None Reported - Past Family History Father Family Medical History: Unable to Obtain Additional Family Medical History / Comment(s): Pt. Was adopted Medications and Allergies Home Medications Medication Instructions Recorded Confirmed Type Aspirin EC [Ecotrin Low Dose] 81 mg PO DAILY 08/30/17 10/04/22 History Fluticasone/Umeclidin/Vilanter 1 puff INHALATION RT-DAILY 11/14/21 10/04/22 History [Trelegy Ellipta 200-62.5-25] Ipratropium-Albuterol Nebulize 3 ml INHALATION RT-QID PRN 11/14/21 10/04/22 History [Duoneb 0.5 mg-3 mg/3 ml Soln] Nitroglycerin Sl Tabs [Nitrostat] 0.4 mg SL Q5M PRN 11/14/21 10/04/22 History Omeprazole [PriLOSEC] 20 mg PO DAILY 11/14/21 10/04/22 History Ondansetron Odt [Zofran ODT] 8 mg PO BID 11/14/21 10/04/22 History Cephalexin [Keflex] 500 mg PO Q8HR 10/04/22 10/04/22 History Ergocalciferol [Vitamin D2 (1250 1,250 mcg PO Q7D 10/04/22 10/04/22 History Mcg = 22846 Iu)] HYDROcodone/APAP 10-325MG [Castle 1 tab PO Q6H PRN 10/04/22 10/04/22 History 10-325] Lidocaine 4% Patch 1 patch TOPICAL DAILY 10/04/22 10/04/22 History PARoxetine HCL [Paxil] 20 mg PO DIRECTED 10/04/22 10/04/22 History Pyridoxine HCl (Vitamin B6) 100 mg PO DAILY 10/04/22 10/04/22 History [Vitamin B-6] buPROPion HCL [Wellbutrin SR] 150 mg PO DIRECTED 10/04/22 10/04/22 History carvediloL [Coreg] 12.5 mg PO BID 10/04/22 10/04/22 History lisinopriL [Prinivil] 20 mg PO DIRECTED 10/04/22 10/04/22 History lisinopriL [Zestril] 10 mg PO DAILY 10/04/22 10/04/22 History Allergies Allergy/AdvReac Type Severity Reaction Status Date / Time sulfamethoxazole Allergy Severe Unknown Verified 10/04/22 02:49 [From Bactrim] rofecoxib [From Vioxx] Allergy Anaphylaxis Verified 10/04/22 02:49 trimethoprim [From Bactrim] Allergy Unknown Verified 10/04/22 02:49 NSAIDS (Non-Steroidal AdvReac Unknown Verified 10/04/22 02:49 Anti-Inflamma Physical Examination - Vital Signs Vital Signs: Vital Signs Temp Pulse Resp BP Pulse Ox FiO2 10/04/22 11:20 28 H 45 10/04/22 11:07 45 10/04/22 11:00 90 28 H 96 10/04/22 10:45 87 28 H 98 10/04/22 10:30 87 28 H 98 10/04/22 10:15 87 28 H 97 10/04/22 10:00 87 28 H 10/04/22 09:45 87 28 H 97 10/04/22 09:30 91 28 H 96 10/04/22 09:15 93 28 H 97 10/04/22 09:14 45 10/04/22 09:00 95 20 98 10/04/22 08:45 96 20 97 10/04/22 08:30 94 20 96 10/04/22 08:15 96 20 98 10/04/22 08:00 98.8 F 90 20 98 60 10/04/22 07:50 60 10/04/22 07:45 91 20 97 10/04/22 07:30 93 21 99 10/04/22 07:15 92 21 97 10/04/22 07:00 93 21 98 10/04/22 06:45 93 21 10/04/22 06:30 97 22 96 10/04/22 06:22 50 10/04/22 06:15 100 23 151/60 97 10/04/22 06:00 99 23 151/60 98 60 10/04/22 05:54 60 10/04/22 05:45 99 25 H 139/70 98 10/04/22 05:30 90 25 H 134/95 98 10/04/22 05:20 100 10/04/22 05:15 95 24 129/102 98 100 10/04/22 05:00 92 16 10/04/22 04:15 124/50 10/04/22 04:10 88 16 124/50 94 L 10/04/22 04:00 91 16 115/87 10/04/22 03:50 92 16 73/62 93 L 10/04/22 03:40 92 16 152/128 10/04/22 03:30 94 16 122/97 98 10/04/22 03:24 92 16 136/69 95 10/04/22 03:10 100 10/04/22 02:49 95 16 134/75 100 Intake and Output 10/03/22 10/04/22 10/04/22 22:59 06:59 14:59 Intake Total 126.578 764.749 Output Total 75 110 Balance 51.578 654.749 Intake: IV 612 Dextrose 5% in Water 1, 400 000 ml @ 100 mls/hr IV . [id number] ROSEANN with Sodium Bicarb (1 Meq/ml) 150 ml Rx#:[id number] Sodium Chloride 3%( 200 Hypertonic) 500 ml @ 50 mls/hr IV .Q10H ONE Rx#: [id number] marjorie 12 Intake, IV Titration 126.578 152.749 Amount Dextrose 5% in Water 1, 100 100 000 ml @ 100 mls/hr IV . [id number] ROSEANN with Sodium Bicarb (1 Meq/ml) 150 ml Rx#:[id number] Norepinephrine 32 mg In 26.578 Sodium Chloride 0.9% 218 ml @ 0.03 MCG/KG/MIN 1. 139 mls/hr IV .Q24H ONE Rx#:[id number] Norepinephrine 32 mg In 2.506 Sodium Chloride 0.9% 218 ml @ 0.03 MCG/KG/MIN 1. 139 mls/hr IV .Q24H ROSEANN Rx#:[id number] Sodium Chloride 3%( 50 Hypertonic) 500 ml @ 50 mls/hr IV .Q10H ONE Rx#: [id number] propofoL 1,000 mg In 0.243 Empty Bag 1 bag @ 30 MCG/ KG/MIN 14.58 mls/hr IV . [id number] ROSEANN Rx#:[id number] Output: Urine 75 110 Other: Voiding Method Indwelling Catheter Weight 81 kg 81 kg ABP, PAP, CO, CI - Last 8 Hours Arterial Blood Pressure 103/65 Arterial Blood Pressure 99/63 Arterial Blood Pressure 93/61 Arterial Blood Pressure 91/59 Arterial Blood Pressure 88/57 Arterial Blood Pressure 90/58 Arterial Blood Pressure 89/59 Arterial Blood Pressure 102/65 Arterial Blood Pressure 119/74 Arterial Blood Pressure 137/83 Arterial Blood Pressure 119/78 Arterial Blood Pressure 126/79 Arterial Blood Pressure 105/71 Arterial Blood Pressure 94/65 Arterial Blood Pressure 100/69 Arterial Blood Pressure 95/68 Arterial Blood Pressure 103/71 Arterial Blood Pressure 96/68 Arterial Blood Pressure 276/179 Arterial Blood Pressure 116/81 Patient is a middle aged female, who is intubated, sedated. Patient is comatose, with GCS of 3. Patient is on very mild sedation with propofol 20 mcg/kg per minute. On cranial nerve examination, pupils are unequal, the right pupil is larger and nonreactive, whereas the left pupil is smaller and reactive. She does have gag and some cough reflex. Oculocephalics are minimally present. Corneal reflexes present. Patient's gaze was noticed to be to the right side. That she does have some roving eye movements noted. Rest of the cranial nerves cannot be tested. On muscle strength testing, patient does not respond to painful stimuli. No facial grimacing noted. Deep tendon reflexes are symmetric 1+ in the upper limbs at biceps and brachioradialis, 3 at the knees, 1+ ankles and plantar is flat on the right, whereas Babinski on the left side. Sensory to touch or painful stimuli elicited no response. Cerebellar functions cannot be tested. Tone is equal bilaterally. Gait cannot be checked. At baseline patient is ambulatory. On general examination, there is no carotid bruit or murmur, S1-S2 audible. Chest is clear on consultation. Abdomen is soft nontender. No organomegaly, bowel sounds present. Positive peripheral edema. Results - Laboratory Findings CBC and BMP: 10/04/22 03:07 10/04/22 12:41 Abnormal Lab Findings: Abnormal Labs 10/04/22 10/04/22 10/04/22 03:07 03:07 03:07 WBC 14.1 H RBC 3.69 L MCV 107.4 H Neutrophils # 10.8 H PT 16.3 H INR 1.6 H APTT 57.1 H ABG pH ABG pCO2 ABG pO2 ABG HCO3 ABG O2 Saturation Potassium 6.4 H* Chloride 110 H Carbon Dioxide 14 L BUN 31 H Creatinine 2.01 H Glucose 188 H POC Glucose (mg/dL) Calcium 7.3 L Magnesium 3.0 H AST 736 H ALT 218 H Alkaline Phosphatase 338 H Troponin I Total Protein 5.5 L Albumin 2.9 L 10/04/22 10/04/22 10/04/22 03:07 05:01 05:25 WBC RBC MCV Neutrophils # PT INR APTT ABG pH 7.23 L ABG pCO2 ABG pO2 254 H ABG HCO3 19 L ABG O2 Saturation 99.2 H Potassium Chloride Carbon Dioxide BUN Creatinine Glucose POC Glucose (mg/dL) 190 H Calcium Magnesium AST ALT Alkaline Phosphatase Troponin I 63.500 H* Total Protein Albumin 10/04/22 10/04/22 10/04/22 06:00 06:00 06:43 WBC RBC MCV Neutrophils # PT INR APTT ABG pH ABG pCO2 ABG pO2 ABG HCO3 ABG O2 Saturation Potassium Chloride 114 H Carbon Dioxide 15 L BUN 36 H Creatinine 2.39 H Glucose 171 H POC Glucose (mg/dL) 183 H Calcium 7.3 L Magnesium 2.8 H AST ALT Alkaline Phosphatase Troponin I 190.000 H* Total Protein Albumin 10/04/22 09:09 WBC RBC MCV Neutrophils # PT INR APTT ABG pH 7.18 L* ABG pCO2 58 H ABG pO2 121 H ABG HCO3 ABG O2 Saturation 97.6 H Potassium Chloride Carbon Dioxide BUN Creatinine Glucose POC Glucose (mg/dL) Calcium Magnesium AST ALT Alkaline Phosphatase Troponin I Total Protein Albumin Assessment and Plan Assessment: * Status post cardiac arrest of unclear cause. Patient had recurrent cardiac arrest 4, each lasting for about 10 minutes. Patient showing signs of severe anoxic encephalopathy. * Diffuse cerebral edema, due to above. * Status post fall due to tripping on the dog leash 09/28/2022, resulting in right elbow fracture. * Acute kidney injury * Elevated troponins * Ischemic hepatitis * History of remote CVA right occipital region as per CT head. * Tobacco use. Plan: * Patient is comatose at this time with GCS of 3. Patient's CT head performed 12 hours post cardiac arrest showed diffuse cerebral edema with significant effacement of the sulci and the lateral ventricles. Patient is already showing signs of some brainstem compression, with unequal pupil around 24 hours post cardiac arrest. Given her young age, the cerebral edema will most likely get worse over the next 48 hours, which likely will produce further brainstem compression, with very high potential for cerebral . Hypertonic saline 3% was initiated at 50 mL per hour. However it does not appear that the hypertonic saline will make any major difference. Based upon patient's clinical history of prolonged cardiac arrest, CT findings, EEG findings and current clinical examination, the prognosis for meaningful recovery appears extremely poor. Patient not a candidate for any craniotomy based upon global brain injury from cardiac arrest. Discussed with patient's , and both children in detail and informed overall prognosis. They are inclining towards comfort care, which appears appropriate. Patient's family have made her NO CODE STATUS. * Stat EEG performed, which was severely abnormal due to severely suppressed background and slowing suggestive of diffuse cerebral dysfunction as can be seen with severe anoxic encephalopathy. No epileptiform activity was seen. * CTA of head and neck revealed no evidence of large vessel occlusion, negative CTA of the neck. * 2-D echo revealed normal left ventricular size and wall thickness. EF is 50- 55%. Severe right ventricular dilation. Moderately reduced right ventricular global systolic function. Left atrial size is normal. * Neurology will follow clinically. Please call neurology if any concerns in the interim. Time with Patient: Greater than 30
[2022-10-04 22:36] VITALS: BP 55/35; PULSE 111
[2022-10-04 22:50] VITALS: RESP 16
--- NOTE | 2022-10-05 11:46 | P.DS ---
Providers Date of admission: 10/04/22 03:15 Expected date of discharge: 10/05/22 Attending physician: Laurel Stubbs MD Consults: 10/04/22 03:14 Consult Physician Stat Consulting Provider: Jay Claros Consult Reason/Comments: ICU care Do you want consulting provider notified?: Already Contacted 10/04/22 05:06 Consult Physician Routine Consulting Provider: Rey Claros Consult Reason/Comments: anoxic brain injury Do you want consulting provider notified?: Yes, Notify in am 10/04/22 06:26 Consult Physician Urgent Consulting Provider: Keny Chin Consult Reason/Comments: Cardiac arrest Do you want consulting provider notified?: Yes [facility]: Discharge Diagnosis: S/p Cardiac arrest with multiple rounds of CPR Multifocal bilateral acute/subacute CVA Anoxic encephalopathy Shock, cardiogenic versus neurogenic STEMI Acute hypoxic and hypercapnic respiratory failure Acute respiratory and metabolic acidosis acute kidney injury, history of left nephrectomy Right upper extremity traumatic fracture Hospital Course: 57 year old female with hypertension , COPD, nephrectomy presented from outside hospital after cardiac arrest. Patient presented to a hospital in [place] for scheduled orthopedic surgery for a recent right UE traumatic fracture. Upon pre admission workup , she was found in [facility] , and transferred to [facility] for nephrology eval and IVF hydration. Upon arrival to [facility] , she was alert oriented and clinically stable , ED docs documented normal examination upon initial evaluation at [facility] , then She started to slowly decline, with hypoxemia, reporting she is not feeling well, and suddenly went unresponsive after about 1-2 hours of her presentation to [facility] . CPR initiated and seems to have required multiple sessions seperated by brief ROSCs of about 5-10 min. Once she had her final ROSC, EKG done which showed STEMI in the RCA distribution , which was discussed with cardiology acid correction hand. then she was noted to have a dilated right pupil compared to the left, CT of the brain done to rule out bleeding, and showed multifocal bilateral acute /subacute infarcts.Iris Dejesus was transferred to our facility here for cardiology evaluation and ICU care. Multiple specialties had discussion with family. Family elected for comfort care measures. Patient at 2311 on 10/04/22. Plan - Discharge Summary Discharge Rx Participant: Yes New Discharge Prescriptions: No Action Aspirin EC [Ecotrin Low Dose] 81 mg PO DAILY Ondansetron Odt [Zofran ODT] 8 mg PO BID Omeprazole [PriLOSEC] 20 mg PO DAILY Lidocaine 4% Patch 1 patch TOPICAL DAILY lisinopriL [Prinivil] 20 mg PO DIRECTED PARoxetine HCL [Paxil] 20 mg PO DIRECTED Cephalexin [Keflex] 500 mg PO Q8HR HYDROcodone/APAP 10-325MG [[place] 10-325] 1 tab PO Q6H PRN PRN Reason: Pain Nitroglycerin Sl Tabs [Nitrostat] 0.4 mg SL Q5M PRN PRN Reason: Chest Pain Ipratropium-Albuterol Nebulize [Duoneb 0.5 mg-3 mg/3 ml Soln] 3 ml INHALATION RT-QID PRN PRN Reason: Shortness Of Breath Fluticasone/Umeclidin/Vilanter [Trelegy Ellipta 200-62.5-25] 1 puff INHALATION RT-DAILY buPROPion HCL [Wellbutrin SR] 150 mg PO DIRECTED Ergocalciferol [Vitamin D2 (1250 Mcg = 31187 Iu)] 1,250 mcg PO Q7D Pyridoxine HCl (Vitamin B6) [Vitamin B-6] 100 mg PO DAILY lisinopriL [Zestril] 10 mg PO DAILY carvediloL [Coreg] 12.5 mg PO BID Discharge Medication List Aspirin EC [Ecotrin Low Dose] 81 mg PO DAILY 08/30/17 [History] Fluticasone/Umeclidin/Vilanter [Trelegy Ellipta 200-62.5-25] 1 puff INHALATION RT-DAILY 11/14/21 [History] Ipratropium-Albuterol Nebulize [Duoneb 0.5 mg-3 mg/3 ml Soln] 3 ml INHALATION RT-QID PRN 11/14/21 [History] Nitroglycerin Sl Tabs [Nitrostat] 0.4 mg SL Q5M PRN 11/14/21 [History] Omeprazole [PriLOSEC] 20 mg PO DAILY 11/14/21 [History] Ondansetron Odt [Zofran ODT] 8 mg PO BID 11/14/21 [History] Cephalexin [Keflex] 500 mg PO Q8HR 10/04/22 [History] Ergocalciferol [Vitamin D2 (1250 Mcg = 01521 Iu)] 1,250 mcg PO Q7D 10/04/22 [History] HYDROcodone/APAP 10-325MG [Bessemer 10-325] 1 tab PO Q6H PRN 10/04/22 [History] Lidocaine 4% Patch 1 patch TOPICAL DAILY 10/04/22 [History] PARoxetine HCL [Paxil] 20 mg PO DIRECTED 10/04/22 [History] Pyridoxine HCl (Vitamin B6) [Vitamin B-6] 100 mg PO DAILY 10/04/22 [History] buPROPion HCL [Wellbutrin SR] 150 mg PO DIRECTED 10/04/22 [History] carvediloL [Coreg] 12.5 mg PO BID 10/04/22 [History] lisinopriL [Prinivil] 20 mg PO DIRECTED 10/04/22 [History] lisinopriL [Zestril] 10 mg PO DAILY 10/04/22 [History] Follow up Appointment(s)/Referral(s): Gabbie Medrano, NASRIN [Primary Care Provider] - 1-2 days Discharge Disposition: - Preliminary Cause of Preliminary Cause of : CVA
== END 2022-10-04 23:11 | disposition expired | DRG 64 ==
LOC: EC 02:42 → 2SICU 03:15
PROVIDERS: ADMIT Internal Medicine; ATTEND Internal Medicine
PROC: 3E043XZ Introduction of Vasopressor into Central Vein, Percutaneous Approach (ICD-10-PCS; principal; 2022-10-04)
PROC: 5A1935Z Respiratory Ventilation, Less than 24 Consecutive Hours (ICD-10-PCS; principal; 2022-10-04)
PROC: 4A133B1 Monitoring of Arterial Pressure, Peripheral, Percutaneous Approach (ICD-10-PCS; 2022-10-04)
PROC: 4A133J1 Monitoring of Arterial Pulse, Peripheral, Percutaneous Approach (ICD-10-PCS; 2022-10-04)
PROC: 03HY32Z Insertion of Monitoring Device into Upper Artery, Percutaneous Approach (ICD-10-PCS; 2022-10-04)
PROC: 4A10X4Z Monitoring of Central Nervous Electrical Activity, External Approach (ICD-10-PCS; 2022-10-04)
DX: I63.531 Cerebral infarction due to unspecified occlusion or stenosis of right posterior cerebral artery (principal); G93.5 Compression of brain; G93.6 Cerebral edema; J96.01 Acute respiratory failure with hypoxia; J96.02 Acute respiratory failure with hypercapnia; K72.00 Acute and subacute hepatic failure without coma; I21.3 ST elevation (STEMI) myocardial infarction of unspecified site; S42.401A Unspecified fracture of lower end of right humerus, initial encounter for closed fracture; S22.20XA Unspecified fracture of sternum, initial encounter for closed fracture; G93.1 Anoxic brain damage, not elsewhere classified; E87.4 Mixed disorder of acid-base balance; N17.9 Acute kidney failure, unspecified; I46.8 Cardiac arrest due to other underlying condition; Z51.5 Encounter for palliative care; Z66 Do not resuscitate; I12.9 Hypertensive chronic kidney disease with stage 1 through stage 4 chronic kidney disease, or unspecified chronic kidney disease; N18.9 Chronic kidney disease, unspecified; R57.0 Cardiogenic shock; I25.10 Atherosclerotic heart disease of native coronary artery without angina pectoris; H57.04 Mydriasis; E11.22 Type 2 diabetes mellitus with diabetic chronic kidney disease; G40.909 Epilepsy, unspecified, not intractable, without status epilepticus; F41.9 Anxiety disorder, unspecified; F32.A Depression, unspecified; E87.5 Hyperkalemia; E78.5 Hyperlipidemia, unspecified; Z88.2 Allergy status to sulfonamides; F17.210 Nicotine dependence, cigarettes, uncomplicated
CPT/HCPCS: 36415; 36600; 70450; 70496; 70498; 71045; 71275; 74177; 80048; 80053; 80306; 81001; 82805; 83735; 83880; 84295; 84484; 85025; 85610; 85730; 87070; 87205; 93005; 93306; 94002; 95822; 96365; 96375; 99291